=== PATIENT | male | born 1955 | race Caucasian/White ===

== ENCOUNTER → 2016-07-08 | Outpatient (CLI) | payer BC ==
--- NOTE | 2016-07-08 16:00 | CT ---
EXAMINATION TYPE: CT brain w con DATE OF EXAM: 07/08/2016 3:52 PM COMPARISON: NONE HISTORY: Headaches without trauma CT DLP: 1121 mGycm Automated exposure control for dose reduction was used. CONTRAST: CT scan of the head is performed with IV Contrast, patient injected with 100 mL of Omnipaque 300. FINDINGS: There is an area of low-attenuation in the right frontal lobe adjacent to the frontal horn of the right lateral ventricle. This shows no abnormal enhancement and may relate to previous infarct . Central structures are midline. There is no evidence of hydrocephalus. There is no mass effect or mid line shift. I do not see evidence of intracranial blood. Following intravenous administration of contrast but do not see evidence of abnormal enhancement. Visualized portions of the paranasal sinuses and mastoids are clear. No depressed skull fracture is s een. IMPRESSION: 1. NONENHANCING AREA OF LOW ATTENUATION IN THE RIGHT FRONTAL LOBE CONSISTENT WITH OLD VASCULAR INJURY . 2. NO AREAS OF ABNORMAL ENHANCEMENT.
== END | disposition home or self-care (01) ==
LOC: RADCTMAIN 15:19
PROVIDERS: ATTEND Family Medicine
DX: R93.0 Abnormal findings on diagnostic imaging of skull and head, not elsewhere classified (principal); R51 Headache
CPT/HCPCS: 70460; Q9967

== ENCOUNTER → 2016-10-24 | Outpatient (CLI) | payer BC ==
[2016-10-24 17:32] LABS: CH 31.9; CHCM 34.3; HCT 44.6 % (39.0-53.0); HDW 3.08; HGB 14.7 gm/dL (13.0-17.5); MCH 30.8 pg (25.0-35.0); MCHC 32.9 g/dL (31.0-37.0); MCV 93.7 fL (80.0-100.0); Mean Platelet Volume 8.1; RBC 4.76 m/uL (4.30-5.90); RDW 15.1 % (11.5-15.5); WBC 6.3 k/uL (3.8-10.6)
[2016-10-24 17:45] LABS: Anion Gap 9 mmol/L; Blood Urea Nitrogen 15 mg/dL (9-20); Carbon Dioxide 28 mmol/L (22-30); Chloride 104 mmol/L (98-107); Non-African American GFR(MDRD) >60 (>60 ml/min/1.73 sqM); Sodium 141 mmol/L (137-145)
== END | disposition home or self-care (01) ==
LOC: LABPAT 17:03
PROVIDERS: ATTEND Internal Medicine Interventional Cardiology
DX: Z01.812 Encounter for preprocedural laboratory examination (principal); I25.10 Atherosclerotic heart disease of native coronary artery without angina pectoris
CPT/HCPCS: 80051; 82565; 84520; 85027

== ENCOUNTER → 2016-11-25 | Outpatient (CLI) | payer BC ==
--- NOTE | 2016-11-25 07:30 | MR ---
EXAMINATION TYPE: MR brain wo/w con, MR angio head wo con DATE OF EXAM: 11/25/2016 COMPARISON: CT brain dated 07/08/2016 HISTORY: TIA TECHNIQUE: Multiplanar, multisequence images of the brain and brainstem is performed without and with IV contras t, utilizing 7 mL intravenous Gadavist . MRA head was also performed and time of flight images focusi ng on the [place] were performed without contrast. FINDINGS: MR BRAIN: Diffusion weighted images demonstrate no evidence of a recent infarct or other diffusion ab normality. There is no extra-axial fluid collection. T2 hyperintense area within the right frontal lobe and insular cortex does not restricted diffusion and relates to encephalomalacia from prior infa rct in the distribution of the right middle cerebral artery. Numerous other foci of T2 hyperintensity are scattered throughout the subcortical and periventricular white matter bilaterally. The prior are a of encephalomalacia nor the T2 plaques enhance. No enhancing mass or any abnormal enhancement is se en within the brain. Note is made of high riding right jugular bulb. Lack of flow-void is seen within the right internal carotid artery as it enters the calvarium extending through the petrous portion a nd cavernous portion into the inferior aspect of the supraclinoid portion. The ventricular system and cisternal spaces are normal in size and appearance. The brain volume is age appropriate. Midline structures demonstrate normal morphology. The craniocervical junction appears within normal limits. The dural venous sinuses appear patent. The globes are intact. Minimal mucosal thickening is seen within the ethmoid and maxillary sinuses. Remaining paranasal sinuses and mastoid air cells are well aerated. ANGIO HEAD: There is complete occlusion of the right internal carotid artery as it enters the calvari um, within the petrous portion, cavernous portion, and some of the supraclinoid portion. There is rec onstitution at the cranial aspect of the supraclinoid right internal carotid artery with asymmetric o pacification of the right ophthalmic artery in relation to the left, although there is flow demonstra zoila. Reconstitution of the right hemisphere branch vessels of the MCA and JAG is seen by a complete c ircle of [place]. No evidence of aneurysm is seen. A false lumen is not identified as there is near to gaudencio lack of flow void on the MR brain. The vertebral arteries are codominant. 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 No evidence of restricted diffusion to suggest acute infarct. Consider ation should be given to embolic disease given the numerous bilateral plaques although these could al so represent chronic microangiopathy. No discrete intimal flap is seen within the right carotid arter y to indicate dissection. Right hemispheric supratentorial and infratentorial flow is maintained by a complete [place]. A [place] message has been communicated to Walter Davila MD via the [employer] Critical Result system on 11/25/2016 7:28 AM, Message ID [id number].
== END | disposition home or self-care (01) ==
LOC: RADMRIMAIN 05:38
PROVIDERS: ATTEND Family Medicine
DX: I65.21 Occlusion and stenosis of right carotid artery (principal); R90.82 White matter disease, unspecified; G93.89 Other specified disorders of brain
CPT/HCPCS: 70544; 70553; A9581

== ENCOUNTER → 2017-03-14 | Outpatient (CLI) | payer BC ==
--- NOTE | 2017-03-14 17:54 | XR ---
EXAMINATION TYPE: XR humerus RT DATE OF EXAM: 03/14/2017 COMPARISON: NONE HISTORY: Pain and swelling TECHNIQUE: 2 views FINDINGS: I see no fracture nor dislocation. The shoulder joint and elbow joint appear intact. IMPRESSION: Negative right humerus exam.
== END | disposition home or self-care (01) ==
LOC: RADXRMAIN 17:10
PROVIDERS: ATTEND Physician Assistant
DX: S46.901A Unspecified injury of unspecified muscle, fascia and tendon at shoulder and upper arm level, right arm, initial encounter (principal)

== ENCOUNTER 2017-04-26 14:56 | Observation (INO) | payer BC ==
[2017-04-26] MEDS ORDERED: NITROGLYCERIN SL TABS 0.4 MG TAB SUBLINGUAL STA ×3 (15:16)
[2017-04-26] MEDS ORDERED: ASPIRIN 81 MG PO STA (15:16)
--- NOTE | 2017-04-26 15:21 | ED ---
General Adult HPI - General Chief complaint: Chest Pain Stated complaint: Chest pain Time Seen by Provider: 04/26/17 15:06 Source: patient, RN notes reviewed Mode of arrival: wheelchair Limitations: no limitations - History of Present Illness Initial comments: Patient is a pleasant 62-year-old male presenting to the emergency Department with chest discomfort. Symptoms have been waxing and waning the past several days. Discomfort is currently moderate and rated 5/10. Discomfort feels like an ache. Patient does have exertional dyspnea. No nausea or diaphoresis. Patient has had similar symptoms previously, last heart catheterization was approximately 6 months ago without intervention. - Related Data Home Medications Medication Instructions Recorded Confirmed Aspirin 325 mg PO DAILY 04/26/17 04/26/17 Atenolol 100 mg PO DAILY 04/26/17 04/26/17 Atorvastatin [Lipitor] 10 mg PO HS 04/26/17 04/26/17 Cholecalciferol (Vitamin D3) 2,000 unit PO DAILY 04/26/17 04/26/17 [Vitamin D3] Citalopram Hydrobromide 40 mg PO DAILY 04/26/17 04/26/17 [Citalopram HBr] Clopidogrel [Plavix] 75 mg PO HS 04/26/17 04/26/17 Icosapent Ethyl [Vascepa] 0.5 gm PO DAILY 04/26/17 04/26/17 Lisinopril [Zestril] 20 mg PO BID 04/26/17 04/26/17 Omeprazole 40 mg PO DAILY 04/26/17 04/26/17 Allergies Allergy/AdvReac Type Severity Reaction Status Date / Time No Known Allergies Allergy Verified 04/26/17 15:36 Review of Systems ROS Statement: Those systems with pertinent positive or pertinent negative responses have been documented in the HPI. ROS Other: All systems not noted in ROS Statement are negative. Constitutional: Denies: fever Eyes: Denies: eye pain ENT: Denies: ear pain Respiratory: Reports: dyspnea. Denies: cough Cardiovascular: Reports: chest pain Endocrine: Denies: fatigue Gastrointestinal: Denies: abdominal pain Genitourinary: Denies: dysuria Musculoskeletal: Denies: back pain Skin: Denies: rash Neurological: Denies: weakness Past Medical History Past Medical History: CVA/TIA History of Any Multi-Drug Resistant Organisms: None Reported Past Surgical History: Cholecystectomy Past Psychological History: No Psychological Hx Reported Smoking Status: Former smoker Past Alcohol Use History: None Reported Past Drug Use History: None Reported General Exam Limitations: no limitations General appearance: alert, in no apparent distress Head exam: Present: atraumatic Eye exam: Present: normal appearance, PERRL ENT exam: Present: normal oropharynx Neck exam: Present: normal inspection Respiratory exam: Present: normal lung sounds bilaterally Cardiovascular Exam: Present: regular rate, normal rhythm Expanded Peripheral pulses: 2+: Radial (R), Radial (L), Posterior Tibialis (R), Posterior Tibialis (L) GI/Abdominal exam: Present: soft. Absent: tenderness Extremities exam: Present: normal inspection. Absent: pedal edema, calf tenderness Neurological exam: Present: alert Psychiatric exam: Present: normal affect, normal mood Skin exam: Present: normal color Course Vital Signs 04/26/17 04/26/17 04/26/17 14:59 15:28 15:33 Temperature 98.1 F Pulse Rate 75 69 52 L Respiratory 20 16 Rate Blood Pressure 126/72 129/74 109/59 O2 Sat by Pulse 99 98 Oximetry 04/26/17 04/26/17 15:40 16:05 Temperature Pulse Rate 69 64 Respiratory 16 Rate Blood Pressure 118/60 113/67 O2 Sat by Pulse 95 Oximetry EKG Findings - EKG Comments: EKG Findings:: Normal sinus rhythm 66. CT 166. QRS 112. QT 432. QTC 452. Normal axis. Right bundle branch block. No acute ST change. Medical Decision Making - Medical Decision Making Patient reevaluated and resting comfortably in bed. Patient updated on results and plan. Case was discussed with practitioner Maryanne, who will admit for Dr. Davila. - Lab Data Result diagrams: 04/26/17 15:22 04/26/17 15:22 Lab Results 04/26/17 04/26/17 04/26/17 Range/Units 15:22 15:22 15:22 WBC 4.9 (3.8-10.6) k/uL RBC 4.26 L (4.30-5.90) m/uL Hgb 12.9 L (13.0-17.5) gm/dL Hct 37.4 L (39.0-53.0) % MCV 87.9 (80.0-100.0) fL MCH 30.4 (25.0-35.0) pg MCHC 34.5 (31.0-37.0) g/dL RDW 13.6 (11.5-15.5) % Plt Count 159 (150-450) k/uL Neutrophils % 50 % Lymphocytes % 33 % Monocytes % 8 % Eosinophils % 6 % Basophils % 1 % Neutrophils # 2.5 (1.3-7.7) k/uL Lymphocytes # 1.6 (1.0-4.8) k/uL Monocytes # 0.4 (0-1.0) k/uL Eosinophils # 0.3 (0-0.7) k/uL Basophils # 0.0 (0-0.2) k/uL PT (9.0-12.0) sec INR (<1.2) APTT (22.0-30.0) sec Sodium 143 (137-145) mmol/L Potassium 4.3 (3.5-5.1) mmol/L Chloride 107 (98-107) mmol/L Carbon Dioxide 25 (22-30) mmol/L Anion Gap 11 mmol/L BUN 15 (9-20) mg/dL Creatinine 0.90 (0.66-1.25) mg/dL Est GFR (MDRD) Af Amer >60 (>60 ml/min/1.73 sqM) Est GFR (MDRD) Non-Af >60 (>60 ml/min/1.73 sqM) Glucose 117 H (74-99) mg/dL Calcium 9.2 (8.4-10.2) mg/dL Magnesium 1.9 (1.6-2.3) mg/dL Total Bilirubin 0.8 (0.2-1.3) mg/dL AST 27 (17-59) U/L ALT 39 (21-72) U/L Alkaline Phosphatase 65 (38-126) U/L Total Creatine Kinase 207 H (55-170) U/L CK-MB (CK-2) 1.0 (0.0-2.4) ng/mL CK-MB (CK-2) Rel Index 0.5 Troponin I <0.012 (0.000-0.034) ng/mL Total Protein 7.0 (6.3-8.2) g/dL Albumin 4.4 (3.5-5.0) g/dL 04/26/17 Range/Units 15:22 WBC (3.8-10.6) k/uL RBC (4.30-5.90) m/uL Hgb (13.0-17.5) gm/dL Hct (39.0-53.0) % MCV (80.0-100.0) fL MCH (25.0-35.0) pg MCHC (31.0-37.0) g/dL RDW (11.5-15.5) % Plt Count (150-450) k/uL Neutrophils % % Lymphocytes % % Monocytes % % Eosinophils % % Basophils % % Neutrophils # (1.3-7.7) k/uL Lymphocytes # (1.0-4.8) k/uL Monocytes # (0-1.0) k/uL Eosinophils # (0-0.7) k/uL Basophils # (0-0.2) k/uL PT 10.1 (9.0-12.0) sec INR 1.0 (<1.2) APTT 25.3 (22.0-30.0) sec Sodium (137-145) mmol/L Potassium (3.5-5.1) mmol/L Chloride (98-107) mmol/L Carbon Dioxide (22-30) mmol/L Anion Gap mmol/L BUN (9-20) mg/dL Creatinine (0.66-1.25) mg/dL Est GFR (MDRD) Af Amer (>60 ml/min/1.73 sqM) Est GFR (MDRD) Non-Af (>60 ml/min/1.73 sqM) Glucose (74-99) mg/dL Calcium (8.4-10.2) mg/dL Magnesium (1.6-2.3) mg/dL Total Bilirubin (0.2-1.3) mg/dL AST (17-59) U/L ALT (21-72) U/L Alkaline Phosphatase (38-126) U/L Total Creatine Kinase (55-170) U/L CK-MB (CK-2) (0.0-2.4) ng/mL CK-MB (CK-2) Rel Index Troponin I (0.000-0.034) ng/mL Total Protein (6.3-8.2) g/dL Albumin (3.5-5.0) g/dL - Radiology Data Radiology results: image reviewed (Chest x-ray shows no acute process.) Disposition Clinical Impression: Chest pain Disposition: ADMITTED IP TO THIS [facility] Referrals: Walter Davila MD [Primary Care Provider] - 1-2 days Decision Time: 16:23
[2017-04-26 15:40] LABS: Basophils % (A) 1 %; Eosinophils # (A) 0.3 k/uL (0-0.7); Eosinophils % (A) 6 %; HCT 37.4 % (39.0-53.0); HGB 12.9 gm/dL (13.0-17.5); Lymphocytes # (A) 1.6 k/uL (1.0-4.8); Lymphocytes % (A) 33 %; MCH 30.4 pg (25.0-35.0); MCHC 34.5 g/dL (31.0-37.0); MCV 87.9 fL (80.0-100.0); Mean Platelet Volume 8.3; Monocytes # (A) 0.4 k/uL (0-1.0); Monocytes % (A) 8 %; Neutrophils # (A) 2.5 k/uL (1.3-7.7); Neutrophils % (A) 50 %; Platelet Count 159 k/uL (150-450); RBC 4.26 m/uL (4.30-5.90); RDW 13.6 % (11.5-15.5); WBC 4.9 k/uL (3.8-10.6)
--- NOTE | 2017-04-26 15:53 | XR ---
EXAMINATION TYPE: XR chest 2V DATE OF EXAM: 04/26/2017 COMPARISON: NONE HISTORY: Shortness of breath TECHNIQUE: Frontal and lateral views of the chest are obtained. FINDINGS: Scattered senescent parenchymal changes noted. Hyperinflation compatible with COPD. No evidence for infiltrate. No evidence for atelectasis. Heart size is stable. Mediastinal structures are stable and grossly unremarkable. No evidence for hilar prominence. Degenerative changes dorsal spine. IMPRESSION: 1. No evidence for acute pulmonary disease.
[2017-04-26 15:58] LABS: ALT 39 U/L (21-72); AST 27 U/L (17-59); Albumin 4.4 g/dL (3.5-5.0); Alkaline Phosphatase 65 U/L (38-126); Anion Gap 11 mmol/L; Blood Urea Nitrogen 15 mg/dL (9-20); Calcium 9.2 mg/dL (8.4-10.2); Carbon Dioxide 25 mmol/L (22-30); Chloride 107 mmol/L (98-107); Glucose 117 mg/dL (74-99); Partial Thromboplastin Time 25.3 sec (22.0-30.0); Potassium 4.3 mmol/L (3.5-5.1); Prothrombin Time 10.1 sec (9.0-12.0); Sodium 143 mmol/L (137-145); Total Bilirubin 0.8 mg/dL (0.2-1.3)
[2017-04-26 16:03] LABS: Creatine Kinase 207 U/L (55-170)
[2017-04-26 16:15] LABS: Troponin I <0.012 ng/mL (0.000-0.034)
[2017-04-26] MEDS ORDERED: NITROGLYCERIN SL TABS 0.4 MG TAB SUBLINGUAL PRN (16:23)
[2017-04-26] MEDS: NITROGLYCERIN OINT 1 INCH/GM PACKET TOPICAL SCH ×2 (18:20→23:28)
[2017-04-26] MEDS: LISINOPRIL 20 MG TAB PO SCH (20:35)
[2017-04-26] MEDS ORDERED: CLOPIDOGREL 75 MG TAB PO SCH (21:00)
[2017-04-26] MEDS ORDERED: ATORVASTATIN 10 MG TAB PO SCH (21:00)
[2017-04-26 21:55] LABS: Creatine Kinase 173 U/L (55-170)
[2017-04-26 22:09] LABS: Creatine Kinase MB 0.8 ng/mL (0.0-2.4); Troponin I <0.012 ng/mL (0.000-0.034)
[2017-04-27 04:08] LABS: Cholesterol 75 mg/dL (<200); HDL Cholesterol 28 mg/dL (40-60); Triglycerides 283 mg/dL (<150)
[2017-04-27 04:23] LABS: Creatine Kinase 164 U/L (55-170)
[2017-04-27 04:34] LABS: Creatine Kinase MB 0.7 ng/mL (0.0-2.4); Troponin I <0.012 ng/mL (0.000-0.034)
[2017-04-27] MEDS: NITROGLYCERIN OINT 1 INCH/GM PACKET TOPICAL SCH ×2 (06:28→15:31)
[2017-04-27] MEDS ORDERED: PANTOPRAZOLE 40 MG TABLET PO SCH (07:30)
[2017-04-27 08:21] VITALS: RESP 18
[2017-04-27] MEDS ORDERED: ATENOLOL 50 MG TAB PO SCH (09:00)
[2017-04-27] MEDS ORDERED: ICOSAPENT ETHYL 0.5 GM PO SCH (09:00)
[2017-04-27] MEDS ORDERED: ASPIRIN 325 MG TAB PO SCH (09:00)
[2017-04-27] MEDS ORDERED: CITALOPRAM HYDROBROMIDE 20 MG TAB PO SCH (09:00)
[2017-04-27] MEDS ORDERED: KETOROLAC 30 MG/ML 1 ML VIAL IVP STA (11:02)
--- NOTE | 2017-04-27 11:06 | P.HPIM ---
History of Present Illness 62-year-old male presented to his family physician yesterday with complaints of intermittent chest pain chest pressure radiating to left arm patient was evaluated in emergency room and admitted to observation for cardiology workup. 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 History of Any Multi-Drug Resistant Organisms: None Reported Past Surgical History: Back Surgery, Cholecystectomy, Heart Catheterization, Hernia Repair Additional Past Surgical History / Comment(s): nancy inguinal hernia repair, throat polpys removed Past Anesthesia/Blood Transfusion Reactions: Previous Problems w/ Anesthesia, Motion Sickness Additional Past Anesthesia/Blood Transfusion Reaction / Comment(s): slow to wake up after aa Smoking Status: Former smoker - Past Family History Mother Family Medical History: CVA/TIA Father Family Medical History: CVA/TIA, Myocardial Infarction (PR) Medications and Allergies Home Medications Medication Instructions Recorded Confirmed Type Aspirin 325 mg PO DAILY 04/26/17 04/26/17 History Atenolol 100 mg PO DAILY 04/26/17 04/26/17 History Atorvastatin [Lipitor] 10 mg PO HS 04/26/17 04/26/17 History Cholecalciferol (Vitamin D3) 2,000 unit PO DAILY 04/26/17 04/26/17 History [Vitamin D3] Citalopram Hydrobromide 40 mg PO DAILY 04/26/17 04/26/17 History [Citalopram HBr] Clopidogrel [Plavix] 75 mg PO HS 04/26/17 04/26/17 History Icosapent Ethyl [Vascepa] 0.5 gm PO DAILY 04/26/17 04/26/17 History Lisinopril [Zestril] 20 mg PO BID 04/26/17 04/26/17 History Omeprazole 40 mg PO DAILY 04/26/17 04/26/17 History Allergies Allergy/AdvReac Type Severity Reaction Status Date / Time No Known Allergies Allergy Verified 04/26/17 15:36 Physical Exam Vitals: Vital Signs Temp Pulse Pulse Resp BP BP BP 04/27/17 08:00 98.2 F 75 18 136/74 04/27/17 04:00 97.9 F 65 16 122/71 04/27/17 03:55 16 04/27/17 00:00 16 04/26/17 23:52 98.1 F 65 16 126/77 04/26/17 20:00 16 04/26/17 19:39 97.7 F 70 16 162/88 04/26/17 17:35 98.1 F 60 17 132/77 04/26/17 17:06 97.8 F 65 16 111/60 04/26/17 16:05 64 113/67 04/26/17 15:40 69 16 118/60 04/26/17 15:33 52 L 109/59 04/26/17 15:28 69 16 129/74 04/26/17 14:59 98.1 F 75 20 126/72 Pulse Ox 04/27/17 08:00 95 04/27/17 04:00 96 04/27/17 03:55 04/27/17 00:00 04/26/17 23:52 96 04/26/17 20:00 04/26/17 19:39 97 04/26/17 17:35 97 04/26/17 17:06 95 04/26/17 16:05 04/26/17 15:40 95 04/26/17 15:33 04/26/17 15:28 98 04/26/17 14:59 99 Intake and Output 04/26/17 04/27/17 04/27/17 22:59 06:59 14:59 Other: Voiding Method Toilet Toilet Toilet # Voids 1 Weight 76.7 kg - Constitutional General appearance: mild distress - EENT Eyes: PERRLA Ears: bilateral: normal - Neck Neck: normal ROM - Respiratory Respiratory: bilateral: CTA - Cardiovascular Rhythm: regular - Gastrointestinal General gastrointestinal: soft - Integumentary Integumentary: normal - Neurologic Neurologic: CNII-XII intact - Psychiatric Psychiatric: A&O x's 3, appropriate affect, intact judgment & insight Results CBC & Chem 7: 04/26/17 15:22 04/26/17 15:22 Labs: Abnormal Lab Results - Last 24 Hours (Table) 0204/26/17 04/26/17 Range/Units 15:22 15:22 15:22 RBC 4.26 L (4.30-5.90) m/uL Hgb 12.9 L (13.0-17.5) gm/dL Hct 37.4 L (39.0-53.0) % Glucose 117 H (74-99) mg/dL Total Creatine Kinase 207 H (55-170) U/L Triglycerides (<150) mg/dL HDL Cholesterol (40-60) mg/dL 04/26/17 04/27/17 Range/Units 20:59 03:40 RBC (4.30-5.90) m/uL Hgb (13.0-17.5) gm/dL Hct (39.0-53.0) % Glucose (74-99) mg/dL Total Creatine Kinase 173 H (55-170) U/L Triglycerides 283 H (<150) mg/dL HDL Cholesterol 28 L (40-60) mg/dL Chest x-ray: report reviewed Thrombosis Risk Factor Assmnt - Choose All That Apply Any of the Below Risk Factors Present?: Yes Each Factor Represents 1 point: Obesity (BMI >25) Other Risk Factors: Yes Each Risk Factor Represents 2 Points: Age 61-74 years Other congenital or acquired thrombophilia - If yes, enter type in comment: No Thrombosis Risk Factor Assessment Total Risk Factor Score: 3 Thrombosis Risk Factor Assessment Level: Moderate Risk Assessment and Plan Plan: Assessment Chest pain troponins negative 3 History of CVA/TIA Hyperlipidemia Hypertension Plan Continue consultation with cardiology Possible stress test tomorrow
[2017-04-27] MEDS ORDERED: IBUPROFEN 600 MG TAB PO SCH (11:15)
[2017-04-27] MEDS: LISINOPRIL 20 MG TAB PO SCH (11:47)
[2017-04-27] MEDS ORDERED: CHOLECALCIFEROL 1,000 UNIT TAB PO SCH (12:00)
--- NOTE | 2017-04-27 13:04 | P.CRDCN ---
History of Present Illness Consult date: 04/27/17 Consult reason: chest pain History of present illness: Mr. Cullen is a pleasant 62-year-old male past medical history significant for dyslipidemia, hypertension, CVA, carotid artery disease and mild aortic regurgitation/stenosis. He follows with Dr. Booth in the office. We have been asked to see him in consultation for complaints of chest pain and exertional shortness of breath. He states since Monday of last week he has had episodes of chest pain intermittently not associated with exertion. The symptoms seem to wax and wan with no specific aggravating or alleviating factors. He was tolerating this until yesterday at work he was walking and he felt increasing dizzy and short of breath. Then he went to regularly scheduled physical therapy for a torn bicep muscle and again had symptoms of chest pain. For this reason he decided to present to ED for evaluation. Since arriving he has had no further episodes of chest pain or shortness. Telemetry tracings have been unremarkable. He denies any associated palpitations, nausea, vomiting or diaphoresis. He also denies symptoms of orthopnea or PND. EKG on arrival reveals sinus rhythm with right bundle branch block pattern. No ST or T-wave abnormalities. Chest xray negative for an acute cardiopulmonary process. Laboratory data reviewed, hgb 12.9, plt 159, potassium 4.3, magnesium 1.9, creatinine 0.9, cardiac enzymes negative x3, cholesterol panel inconclusive secondary to elevated triglycerides. Recommend outpatient testing at a later date. Current cardiac medications include lisinopril 20 mg BID, atenolol 100 mg daily , plavix 75 mg daily, atorvastatin 10 mg daily and aspirin 325 mg daily. Most recent cardiac catheterization was performed 10/2016 revealed normal coronary arteries with no gradient across the aortic valve. Most recent echocardiogram performed 08/2016 reveals mild aortic stenosis and aortic regurgitation with preserved LV systolic function with normal ejection fraction. Most recent Lexiscan stress test in 2015 was negative for reversible cardiac ischemia. Most recent carotid duplex 01/2016 reveals mild disease in LICA and occluded right ICA. Review of Systems CONSTITUTIONAL: Denies fever. Denies chills. EYES: Denies blurred vision. Denies vision changes. Denies eye pain. EARS, NOSE, MOUTH & THROAT: Denies headache. Denies sore throat. Denies ear pain. CARDIOVASCULAR: Denies chest pain. Denies shortness of breath. Denies orthopnea. Denies PND. Denies palpitations. RESPIRATORY: Denies cough. GASTROINTESTINAL: Denies abdominal pain. Denies diarrhea. Denies constipation. Denies nausea. Denies vomiting. MUSCULOSKELETAL: Denies myalgias. INTEGUMENTARY: Denies pruitis. Denies rash. NEUROLOGIC: Denies numbness. Denies tingling. Denies weakness. PSYCHIATRIC: Denies anxiety. Denies depression. ENDOCRINE: Denies fatigue. Denies weight change. Denies polydipsia. Denies polyurina. GENITOURINARY: Denies burning, hematuria or urgency with micturation. HEMATOLOGIC: Denies history of anemia. Denies bleeding. Past Medical History Past Medical History: CVA/TIA, Hyperlipidemia, Hypertension Additional Past Medical History / Comment(s): rt side dominant."rt carotid artery 100% blocked", past "stroke" some mild short term memory problems", throat polyps removed pt stated were cancerous History of Any Multi-Drug Resistant Organisms: None Reported Past Surgical History: Back Surgery, Cholecystectomy, Heart Catheterization, Hernia Repair Additional Past Surgical History / Comment(s): nancy inguinal hernia repair, throat polpys removed Past Anesthesia/Blood Transfusion Reactions: Previous Problems w/ Anesthesia, Motion Sickness Additional Past Anesthesia/Blood Transfusion Reaction / Comment(s): slow to wake up after aa Smoking Status: Former smoker - Past Family History Mother Family Medical History: CVA/TIA Father Family Medical History: CVA/TIA, Myocardial Infarction ([place]) Medications and Allergies Home Medications Medication Instructions Recorded Confirmed Type Aspirin 325 mg PO DAILY 04/26/17 04/26/17 History Atenolol 100 mg PO DAILY 04/26/17 04/26/17 History Atorvastatin [Lipitor] 10 mg PO HS 04/26/17 04/26/17 History Cholecalciferol (Vitamin D3) 2,000 unit PO DAILY 04/26/17 04/26/17 History [Vitamin D3] Citalopram Hydrobromide 40 mg PO DAILY 04/26/17 04/26/17 History [Citalopram HBr] Clopidogrel [Plavix] 75 mg PO HS 04/26/17 04/26/17 History Icosapent Ethyl [Vascepa] 0.5 gm PO DAILY 04/26/17 04/26/17 History Lisinopril [Zestril] 20 mg PO BID 04/26/17 04/26/17 History Omeprazole 40 mg PO DAILY 04/26/17 04/26/17 History Allergies Allergy/AdvReac Type Severity Reaction Status Date / Time No Known Allergies Allergy Verified 04/26/17 15:36 Physical Exam Vitals: Vital Signs Temp Pulse Pulse Resp BP BP BP 04/27/17 08:00 98.2 F 75 18 136/74 04/27/17 04:00 97.9 F 65 16 122/71 04/27/17 03:55 16 04/27/17 00:00 16 04/26/17 23:52 98.1 F 65 16 126/77 04/26/17 20:00 16 04/26/17 19:39 97.7 F 70 16 162/88 04/26/17 17:35 98.1 F 60 17 132/77 04/26/17 17:06 97.8 F 65 16 111/60 04/26/17 16:05 64 113/67 04/26/17 15:40 69 16 118/60 04/26/17 15:33 52 L 109/59 04/26/17 15:28 69 16 129/74 04/26/17 14:59 98.1 F 75 20 126/72 Pulse Ox 04/27/17 08:00 95 04/27/17 04:00 96 04/27/17 03:55 04/27/17 00:00 04/26/17 23:52 96 04/26/17 20:00 04/26/17 19:39 97 04/26/17 17:35 97 04/26/17 17:06 95 04/26/17 16:05 04/26/17 15:40 95 04/26/17 15:33 04/26/17 15:28 98 04/26/17 14:59 99 Intake and Output 04/26/17 04/27/17 04/27/17 22:59 06:59 14:59 Other: Voiding Method Toilet Toilet # Voids 1 Weight 76.7 kg Blood pressure 136/74 heart rate 75 afebrile GENERAL: This is a 62-year-old male in no apparent distress at the time of my examination. HEENT: Head is atraumatic, normocephalic. Pupils are equal, round. Sclerae anicteric. Conjunctivae are clear. Mucous membranes of the mouth are moist. Neck is supple. There is no jugular venous distention. No carotid bruit is heard. LUNGS: Clear to auscultation no wheezes, rales or rhonchi. No chest wall tenderness is noted on palpation or with deep breathing. HEART: Regular rate and rhythm with systolic ejection murmur at the base, no rubs or gallops. S1 and S2 heard. ABDOMEN: Soft, nontender. Bowel sounds are heard. No organomegaly noted. EXTREMITIES: No evidence of peripheral edema and no calf tenderness noted. VASCULAR: Radial and dorsalis pedis pulses palpated, no evidence of clubbing. NEUROLOGIC: Patient is awake, alert and oriented x3. Results 04/26/17 15:22 04/26/17 15: Cardiac Enzymes 04/26/17 04/26/17 04/26/17 Range/Units 15:22 15:22 20:59 AST 27 (17-59) U/L CK-MB (CK-2) 1.0 0.8 (0.0-2.4) ng/mL Troponin I <0.012 <0.012 (0.000-0.034) ng/mL 04/27/17 Range/Units 03:40 AST (17-59) U/L CK-MB (CK-2) 0.7 (0.0-2.4) ng/mL Troponin I <0.012 (0.000-0.034) ng/mL Coagulation 04/26/17 Range/Units 15:22 PT 10.1 (9.0-12.0) sec APTT 25.3 (22.0-30.0) sec Lipids 04/27/17 Range/Units 03:40 Triglycerides 283 H (<150) mg/dL Cholesterol 75 (<200) mg/dL HDL Cholesterol 28 L (40-60) mg/dL CBC 04/26/17 Range/Units 15:22 WBC 4.9 (3.8-10.6) k/uL RBC 4.26 L (4.30-5.90) m/uL Hgb 12.9 L (13.0-17.5) gm/dL Hct 37.4 L (39.0-53.0) % Plt Count 159 (150-450) k/uL Comprehensive Metabolic Panel 04/26/17 Range/Units 15:22 Sodium 143 (137-145) mmol/L Potassium 4.3 (3.5-5.1) mmol/L Chloride 107 (98-107) mmol/L Carbon Dioxide 25 (22-30) mmol/L BUN 15 (9-20) mg/dL Creatinine 0.90 (0.66-1.25) mg/dL Glucose 117 H (74-99) mg/dL Calcium 9.2 (8.4-10.2) mg/dL AST 27 (17-59) U/L ALT 39 (21-72) U/L Alkaline Phosphatase 65 (38-126) U/L Total Protein 7.0 (6.3-8.2) g/dL Albumin 4.4 (3.5-5.0) g/dL Current Medications Generic Name Dose Route Start Last Admin Trade Name Freq PRN Reason Stop Dose Admin Aspirin 325 mg 04/27/17 09:00 Aspirin PO DAILY [facility] Atenolol 100 mg 04/27/17 09:00 Tenormin PO DAILY [facility] Atorvastatin Calcium 10 mg 04/26/17 21:00 04/26/17 20:35 Lipitor PO 10 mg HS [facility] Administration Cholecalciferol 2,000 unit 04/27/17 12:00 Vitamin D3 PO 1200 [facility] Citalopram Hydrobromide 40 mg 04/27/17 09:00 Celexa PO DAILY [facility] Clopidogrel Bisulfate 75 mg 04/26/17 21:00 04/26/17 20:35 Plavix PO 75 mg HS [facility] Administration Lisinopril 20 mg 04/26/17 21:00 04/26/17 20:35 Zestril PO 20 mg BID JUNAID Administration Nitroglycerin 1 inch 04/26/17 18:00 04/27/17 06:28 Nitro-Bid Oint TOPICAL 1 inch Q6HR [facility] Administration Nitroglycerin 0.4 mg 04/26/17 16:23 Nitrostat SUBLINGUAL Q5M PRN Chest Pain Patient's Own Med ( 0.5 gm 04/27/17 09:00 Icosapent Ethyl [ PO Vascepa] 0.5 Gm) DAILY [facility] Pantoprazole Sodium 40 mg 04/27/17 07:30 Protonix PO AC-BRKFST JUNAID Intake and Output 02/28/18 03/01/18 03/01/18 22:59 06:59 14:59 Other: Voiding Method Toilet Toilet # Voids 1 Weight 76.7 kg 04/26/17 15:22 04/26/17 15:22 Assessment and Plan Assessment: ASSESSMENT 1. Chest pain, atypical with recent normal cardiac catheterization 10/2016. Pain is more pleuritic in nature, possibly secondary to increasing exercise with physical therapy. 2. Hypertension 3. Dyslipidemia 4. Carotid artery disease with totally occluded right ICA 5. History of CVA 6. Non-rheumatic aortic stenosis PLAN Obtain 2D echocardiogram and doppler study to assess cardiac structure and function. Give toradol now assess for pain relief. An acute coronary event has been ruled out. Stable from cardiac perspective. Follow up with Dr. Booth in 2-3 weeks. Thank you kindly for this consultation. Nurse Practitioner note has been reviewed, I agree with a documented findings and plan of care. Patient was seen and examined.
--- NOTE | 2017-04-27 15:54 | P.DS ---
Providers Date of admission: 04/26/17 16:24 Expected date of discharge: 04/27/17 Attending physician: Walter Davila Consults: 04/26/17 16:24 Consult Physician Urgent Consulting Provider: Bernardo Booth Consult Reason/Comments: cp Do you want consulting provider notified?: Yes Primary care physician: Walter Davila [facility] Course: 62-year-old male presented to the emergency room after a visit with family physician for chest pain. Patient was availed evaluated by cardiology cleared for discharge. Troponins were negative times three. Cardiology feels chest pain was chest wall pain from increasing exercise. Patient is to follow up with family physician and Dr. Booth to three weeks. Assessment chest pain atypical chest wall troponins negative history of CVA/TIA hyperlipidemia hypertension carotid artery disease Nondramatic aortic stenosis Plan follow up with the family physician in [facility] discharge home Patient Condition at Discharge: Serious Plan - Discharge Summary Discharge Rx Participant: No New Discharge Prescriptions: Continue Citalopram Hydrobromide [Citalopram HBr] 40 mg PO DAILY Cholecalciferol (Vitamin D3) [Vitamin D3] 2,000 unit PO DAILY Lisinopril [Zestril] 20 mg PO BID Atenolol 100 mg PO DAILY Omeprazole 40 mg PO DAILY Clopidogrel [Plavix] 75 mg PO HS Atorvastatin [Lipitor] 10 mg PO HS Aspirin 325 mg PO DAILY Icosapent Ethyl [Vascepa] 0.5 gm PO DAILY Discharge Medication List Aspirin 325 mg PO DAILY 04/26/17 [History] Atenolol 100 mg PO DAILY 04/26/17 [History] Atorvastatin [Lipitor] 10 mg PO HS 04/26/17 [History] Cholecalciferol (Vitamin D3) [Vitamin D3] 2,000 unit PO DAILY 04/26/17 [History] Citalopram Hydrobromide [Citalopram HBr] 40 mg PO DAILY 04/26/17 [History] Clopidogrel [Plavix] 75 mg PO HS 04/26/17 [History] Icosapent Ethyl [Vascepa] 0.5 gm PO DAILY 04/26/17 [History] Lisinopril [Zestril] 20 mg PO BID 04/26/17 [History] Omeprazole 40 mg PO DAILY 04/26/17 [History] Follow up Appointment(s)/Referral(s): Walter Davila MD [Primary Care Provider] - 1-2 days Bernardo Booth MD [STAFF PHYSICIAN] - 1 Week (Follow up appoimntment is on May 19 at 1:[address] Booth )
[2017-04-27 16:15] VITALS: BP 116/70; PULSE 66; TEMP 97.2
--- NOTE | 2017-04-28 11:09 | ECHOF ---
Referral Reason:chest pain/sob MEASUREMENTS -------- HEIGHT: 157.5 cm WEIGHT: 76.7 kg BP: IVSd: 1.2 cm (0.6 - 1.1) LVIDd: 4.1 cm (3.9 - 5.3) LVPWd: 1.0 cm (0.6 - 1.1) IVSs: 1.8 cm LVIDs: 2.1 cm LVPWs: 1.9 cm LAESV Index (A-L): 17.21 ml/m Ao Diam: 3.2 cm (2.0 - 3.7) AV Cusp: 1.5 cm (1.5 - 2.6) LA Diam: 3.4 cm (2.7 - 3.8) MV EXCURSION: 14.924 mm (> 18.000) MV EF SLOPE: 84 mm/s (70 - 150) EPSS: 0.5 cm MV E Shyam: 0.66 m/s MV DecT: 239 ms MV A Shyam: 0.94 m/s MV E/A Ratio: 0.71 AV maxP.38 mmHg AV meanP.68 mmHg AR PHT: 505 ms RAP: 5.00 mmHg RVSP: 21.08 mmHg FINDINGS -------- Sinus rhythm. This was a technically good study. The left ventricular size is normal. There is borderline concentric left ventricular hypertrophy. Overall left ventricular systolic function is normal with, an EF between 55 - 60 %. The right ventricle is normal in size and function. Normal LA size by volume 22+/-6 ml/m2. The right atrium is normal in size. Aortic valve is trileaflet and is moderately thickened. There is mild aortic regurgitation. There is mild aortic stenosis present. Peak/mean gradient across the Aortic Valve is 28.38mmHg / 12.68mm Hg. The mitral valve leaflets are mildly thickened. Mild mitral annular calcification present. Mild m itral regurgitation is present. Mild tricuspid regurgitation present. The right ventricular systolic pressure, as measured by Doppl er, is 21.08mmHg. Pulmonic valve appears structurally normal. The aortic root size is normal. Normal inferior vena cava with normal inspiratory collapse consistent with estimated right atrial pre ssure of 5 mmHg. The pericardium is normal. CONCLUSIONS -------- 1. Sinus rhythm. 2. This was a technically good study. 3. The left ventricular size is normal. 4. There is borderline concentric left ventricular hypertrophy. 5. Overall left ventricular systolic function is normal with, an EF between 55 - 60 %. 6. The right ventricle is normal in size and function. 7. Normal LA size by volume 22+/-6 ml/m2. 8. The right atrium is normal in size. 9. Aortic valve is trileaflet and is moderately thickened. 10. There is mild aortic regurgitation. 11. There is mild aortic stenosis present. 12. Peak/mean gradient across the Aortic Valve is 28.38mmHg / 12.68mmHg. 13. The mitral valve leaflets are mildly thickened. 14. Mild mitral annular calcification present. 15. Mild mitral regurgitation is present. 16. Mild tricuspid regurgitation present. 17. The right ventricular systolic pressure, as measured by Doppler, is 21.08mmHg. 18. Pulmonic valve appears structurally normal. 19. The aortic root size is normal. 20. Normal inferior vena cava with normal inspiratory collapse consistent with estimated right atrial pressure of 5 mmHg. 21. The pericardium is normal. MEDICAL TECHNOLOGIST PRN: Albina Franklin RDCS
== END 2017-04-27 16:20 | disposition home or self-care (01) ==
LOC: EC 14:56 → 3OBS 16:24
PROVIDERS: ADMIT Family Medicine; ATTEND Family Medicine
DX: R07.89 Other chest pain (principal); R42 Dizziness and giddiness; R06.02 Shortness of breath; R06.00 Dyspnea, unspecified; Z86.73 Personal history of transient ischemic attack (TIA), and cerebral infarction without residual deficits; E78.5 Hyperlipidemia, unspecified; I10 Essential (primary) hypertension; I65.21 Occlusion and stenosis of right carotid artery; I35.2 Nonrheumatic aortic (valve) stenosis with insufficiency; I35.1 Nonrheumatic aortic (valve) insufficiency; E66.9 Obesity, unspecified; Z68.30 Body mass index [BMI] 30.0-30.9, adult; Z79.02 Long term (current) use of antithrombotics/antiplatelets; Z79.82 Long term (current) use of aspirin; Z79.899 Other long term (current) drug therapy; Z87.891 Personal history of nicotine dependence; Z90.49 Acquired absence of other specified parts of digestive tract; Z82.49 Family history of ischemic heart disease and other diseases of the circulatory system; E78.1 Pure hyperglyceridemia
CPT/HCPCS: 99285; 96374; 36415; 93005; 93306; 80061; 80053; 82550 ×2; 82553 ×2; 83735; 84484 ×2; 85025; 85610; 85730; 71046; G0378 ×2; J1885

== ENCOUNTER → 2017-08-02 | Outpatient (CLI) | payer BC | END | disposition home or self-care (01) | LOC: LABWHC1 15:49 | PROVIDERS: ATTEND Psychiatry & Neurology Neurology | DX: G44.89 Other headache syndrome (principal) | CPT/HCPCS: 36415; 82306; 85652; 86140 ==

== ENCOUNTER 2018-06-08 07:59 | Day surgery (SDC) | payer BC ==
[2018-06-05 16:05] VITALS: BMI 32.9
--- NOTE | 2018-06-08 06:12 | P.GSHP ---
History of Present Illness H&P Date: 06/08/18 CHIEF COMPLAINT: Colon screen HISTORY OF PRESENT ILLNESS: The patient is a 63-year-old male who presents for colon screen. Lower endoscopy was offered for further evaluation and management. PAST MEDICAL HISTORY: Please see list. PAST SURGICAL HISTORY: Please see list. MEDICATIONS: Please see list. ALLERGIES: Please see list. SOCIAL HISTORY: No illicit drug use FAMILY HISTORY: No reports of Crohn disease or ulcerative colitis. REVIEW OF ORGAN SYSTEMS: CONSTITUTIONAL: No reports of fevers or chills. PHYSICAL EXAM: VITAL SIGNS: Stable GENERAL: Well-developed pleasant in no acute distress. HEENT: No scleral icterus. Extraocular movements grossly intact. Moist buccal mucosa. NECK: Supple without lymphadenopathy. CHEST: Unlabored respirations. Equal bilateral excursions. CARDIOVASCULAR: Regular rate and rhythm. Distal 2+ pulses. ABDOMEN: Soft, nontender, nondistended. MUSCULOSKELETAL: No clubbing, cyanosis, or edema. ASSESSMENT: 1. Colon screen. PLAN: 1. Recommend proceeding with a lower endoscopy 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", past "stroke" some mild short term memory problems", throat polyps removed pt stated were cancerous, ANEURYSM ("CHEST AREA")- DR WATCHING IT" History of Any Multi-Drug Resistant Organisms: None Reported Past Surgical History: Back Surgery, Cholecystectomy, Heart Catheterization, Hernia Repair Additional Past Surgical History / Comment(s): nancy inguinal hernia repair, throat polpys removed Past Anesthesia/Blood Transfusion Reactions: Previous Problems w/ Anesthesia, Motion Sickness Additional Past Anesthesia/Blood Transfusion Reaction / Comment(s): STATES TAKES LONGER TO WAKE UP" Smoking Status: Former smoker - Past Family History Mother Family Medical History: CVA/TIA Father Family Medical History: CVA/TIA, Myocardial Infarction ([place]) Medications and Allergies Home Medications Medication Instructions Recorded Confirmed Type Aspirin 325 mg PO DAILY 04/26/17 06/05/18 History Atorvastatin [Lipitor] 10 mg PO HS 04/26/17 06/05/18 History Cholecalciferol (Vitamin D3) 2,000 unit PO DAILY 04/26/17 06/05/18 History [Vitamin D3] Citalopram Hydrobromide 40 mg PO DAILY 04/26/17 06/05/18 History [Citalopram HBr] Clopidogrel [Plavix] 75 mg PO HS 04/26/17 06/05/18 History Lisinopril [Zestril] 20 mg PO BID 04/26/17 06/05/18 History Omeprazole 40 mg PO DAILY 04/26/17 06/05/18 History [place]-3 Fatty Acids/Fish Oil [Fish 1 each PO DAILY 06/05/18 06/05/18 History Oil 1,000 mg Softgel] Allergies Allergy/AdvReac Type Severity Reaction Status Date / Time No Known Allergies Allergy Verified 06/05/18 16:15
[~2018-06-08 07:59] MED LIST: LACTATED RINGERS 1,000 ML IV SCH; LIDOCAINE 1% 20 ML VIAL (10MG/ML) FOR IV START INTRADERMA PRN
[2018-06-08 08:19] VITALS: TEMP 98.4
[2018-06-08] MEDS ORDERED: PROPOFOL 10 MG/ML 20 ML VIAL IV ONE (08:49)
--- NOTE | 2018-06-08 09:12 | P.PCN ---
Date of Procedure: 06/08/18 Description of Procedure: PREOPERATIVE DIAGNOSIS: Colonoscopy screening, first POSTOPERATIVE DIAGNOSIS: Colonoscopy screening, first Diverticulosis, sigmoid OPERATION: Colonoscopy to the ileocecal valve and appendiceal orifice. SURGEON: Mita Correa MD. ANESTHESIA: MAC. INDICATIONS: The patient is a 63-year-old male who presents for his first colonoscopy screening. Benefits and risks were described and informed consent was obtained. DESCRIPTION OF PROCEDURE: The patient had undergone Gatorade, MiraLAX and Dulcolax prep. He had been brought into the operating room and laid in the left lateral decubitus position. After adequate intravenous sedation, the rectum was examined with 2% lidocaine jelly. The prostate was smooth and without abnormalities. No external hemorrhoids were encountered. The rectal tone was within normal limits. No lesions were palpated in the rectal vault. An Olympus colonoscope was advanced until the ileocecal valve and appendiceal orifice were clearly viewed. The prep was fair. The scope was removed with visualization of each mucosal fold. Scattered diverticulosis was encountered. No adenomatous colonic polyps were found. No evidence of focal colitis was found. Retroflexion of the scope demonstrated no internal hemorrhoids. The colon was desufflated. The patient had tolerated the procedure well. Withdrawal time was over 6 minutes. FINDINGS: [place] preparation quality scale 3 (1-5) No internal hemorrhoids Prostate unremarkable. No external prolapsed hemorrhoids. No arteriovenous malformations. No adenomatous polyps. No focal colitis. RECOMMENDATIONS: Lower endoscopy in 10 years, 2028 or Cologaurd Plan - Discharge Summary Discharge Rx Participant: No New Discharge Prescriptions: No Action Citalopram Hydrobromide [Citalopram HBr] 40 mg PO DAILY Cholecalciferol (Vitamin D3) [Vitamin D3] 2,000 unit PO DAILY Lisinopril [Zestril] 20 mg PO BID Omeprazole 40 mg PO DAILY Clopidogrel [Plavix] 75 mg PO HS Atorvastatin [Lipitor] 10 mg PO HS Aspirin 325 mg PO DAILY [place]-3 Fatty Acids/Fish Oil [Fish Oil 1,000 mg Softgel] 1 each PO DAILY Discharge Medication List Aspirin 325 mg PO DAILY 04/26/17 [History] Atorvastatin [Lipitor] 10 mg PO HS 04/26/17 [History] Cholecalciferol (Vitamin D3) [Vitamin D3] 2,000 unit PO DAILY 04/26/17 [History] Citalopram Hydrobromide [Citalopram HBr] 40 mg PO DAILY 04/26/17 [History] Clopidogrel [Plavix] 75 mg PO HS 04/26/17 [History] Lisinopril [Zestril] 20 mg PO BID 04/26/17 [History] Omeprazole 40 mg PO DAILY 04/26/17 [History] [place]-3 Fatty Acids/Fish Oil [Fish Oil 1,000 mg Softgel] 1 each PO DAILY 06/05/18 [History] Follow up Appointment(s)/Referral(s): Mita Correa MD [STAFF PHYSICIAN] - As Needed Patient Instructions/Handouts: *Surgery [facility] - (Anesthesia) Endoscopy Discharge Instructions, Diverticulosis (ED), Diverticulosis Diet (GEN), Colonoscopy (DC) Discharge Disposition: HOME SELF-CARE
[2018-06-08 09:23] VITALS: BP 125/87; PULSE 78; RESP 18
== END 2018-06-08 09:51 | disposition home or self-care (01) ==
LOC: ORWHC2ENDO 07:59
PROVIDERS: ATTEND Surgery Plastic and Reconstructive Surgery
DX: Z12.11 Encounter for screening for malignant neoplasm of colon (principal); K57.30 Diverticulosis of large intestine without perforation or abscess without bleeding; Z85.850 Personal history of malignant neoplasm of thyroid; E78.5 Hyperlipidemia, unspecified; I10 Essential (primary) hypertension; I69.311 Memory deficit following cerebral infarction; Z79.82 Long term (current) use of aspirin; Z87.891 Personal history of nicotine dependence; Z82.49 Family history of ischemic heart disease and other diseases of the circulatory system; Z79.899 Other long term (current) drug therapy
CPT/HCPCS: J2704; G0121

== ENCOUNTER → 2018-10-10 | Outpatient (CLI) | payer BC ==
[2018-10-10 18:25] LABS: C Reactive Protein <0.4 mg/dL (0.0-0.8); Calcium 9.3 mg/dL (8.7-10.3)
== END | disposition home or self-care (01) ==
LOC: LABWHC1 14:31
PROVIDERS: ATTEND Psychiatry & Neurology Neurology
DX: R41.3 Other amnesia (principal); Z86.73 Personal history of transient ischemic attack (TIA), and cerebral infarction without residual deficits
CPT/HCPCS: 36415; 82306; 82310; 84439; 84443; 84481; 85652; 86140

== ENCOUNTER → 2018-12-29 | Outpatient (CLI) | payer BC ==
--- NOTE | 2018-12-29 16:52 | CT ---
EXAMINATION TYPE: CT brain wo con DATE OF EXAM: 12/29/2018 COMPARISON: 07/08/2016 HISTORY: Dizziness and headache without injury CT DLP: 1047.1 mGycm Automated exposure control for dose reduction was used. FINDINGS: There is 5 x 2 cm area of white matter hypodensity right posterior frontal lobe. There is no mass eff ect nor midline shift. There is no sign of intracranial hemorrhage. There is some cerebral cortical a trophy. Calvarium is intact. IMPRESSION: OLD RIGHT POSTERIOR FRONTAL LOBE WHITE MATTER INFARCT UNCHANGED COMPARED TO OLD EXAM. NO ACUTE INTRAC RANIAL ABNORMALITY.
== END | disposition home or self-care (01) ==
LOC: RADCTMAIN 14:45
PROVIDERS: ATTEND Psychiatry & Neurology Neurology
DX: R51 Headache (principal); R42 Dizziness and giddiness
CPT/HCPCS: 70450

== ENCOUNTER 2019-01-21 15:54 | Emergency (ER) | payer BC ==
[2019-01-21 16:11] VITALS: TEMP 98.2
[2019-01-21] MEDS ORDERED: SODIUM CHLORIDE 0.9% 1,000 ML IV STA ×2 (16:24)
[2019-01-21] MEDS ORDERED: KETOROLAC 30 MG/ML 1 ML VIAL IVP STA (16:24)
[2019-01-21] MEDS ORDERED: MORPHINE SULFATE 4 MG/ML SYRINGE IVP STA (16:24)
[2019-01-21] MEDS ORDERED: ONDANSETRON 4 MG/2 ML VIAL IVP STA (16:24)
[2019-01-21 16:37] LABS: Basophils % (A) 1 %; Eosinophils # (A) 0.3 k/uL (0-0.7); Eosinophils % (A) 7 %; HCT 38.3 % (39.0-53.0); HGB 13.1 gm/dL (13.0-17.5); Lymphocytes # (A) 1.6 k/uL (1.0-4.8); Lymphocytes % (A) 32 %; MCH 30.8 pg (25.0-35.0); MCHC 34.1 g/dL (31.0-37.0); MCV 90.3 fL (80.0-100.0); Mean Platelet Volume 7.6; Monocytes # (A) 0.3 k/uL (0-1.0); Monocytes % (A) 7 %; Neutrophils # (A) 2.5 k/uL (1.3-7.7); Neutrophils % (A) 52 %; Platelet Count 191 k/uL (150-450); RBC 4.24 m/uL (4.30-5.90); RDW 13.4 % (11.5-15.5); WBC 4.9 k/uL (3.8-10.6)
--- NOTE | 2019-01-21 16:40 | ED ---
Chest Pain HPI - General Chief Complaint: Chest Pain Stated Complaint: lt arm pain Time Seen by Provider: 01/21/19 16:15 Source: patient, RN notes reviewed, old records reviewed Mode of arrival: ambulatory Limitations: no limitations - History of Present Illness Initial Comments: This 63-year-old male here for suture diversion multiple complaints complaints of headache and neck pain, chest pain and pain that radiates the chest left arm and back. Patient does have history of heart disease. Was noticed to have low- grade fever. No trauma. No significant neurological complaints. No significant headache currently. MD Complaint: chest pain, other (patient w neck and L arm pain, history of same) -: hour(s) Onset: during exertion, other (also complaining of fever) Pain Location: substernal, left chest Pain Radiation: LUE Severity: moderate Severity scale (1-10): 4 Quality: tightness, heaviness Consistency: constant Improves With: nothing Worsens With: nothing Context: recent illness Anginal Symptoms: nausea, vomiting Other Symptoms: palpitations Treatments Prior to Arrival: none - Related Data Home Medications Medication Instructions Recorded Confirmed Aspirin 325 mg PO DAILY 04/26/17 01/21/19 Atorvastatin [Lipitor] 10 mg PO HS 04/26/17 01/21/19 Cholecalciferol (Vitamin D3) 2,000 unit PO DAILY 04/26/17 01/21/19 [Vitamin D3] Citalopram Hydrobromide 40 mg PO DAILY 04/26/17 01/21/19 [Citalopram HBr] Clopidogrel [Plavix] 75 mg PO HS 04/26/17 01/21/19 Lisinopril [Zestril] 20 mg PO BID 04/26/17 01/21/19 Omeprazole 40 mg PO DAILY 04/26/17 01/21/19 [place]-3 Fatty Acids/Fish Oil [Fish 1 cap PO DAILY 06/05/18 01/21/19 Oil 1,000 mg Softgel] Hydrochlorothiazide 12.5 mg PO DAILY 01/21/19 01/21/19 Metoprolol Tartrate [Lopressor] 100 mg PO DAILY 01/21/19 01/21/19 Allergies Allergy/AdvReac Type Severity Reaction Status Date / Time No Known Allergies Allergy Verified 01/21/19 16:54 Review of Systems ROS Statement: Those systems with pertinent positive or pertinent negative responses have been documented in the HPI. ROS Other: All systems not noted in ROS Statement are negative. EKG Findings - EKG Comments: EKG Findings:: EKG shows sinus tachycardia rate 106 AL 178 QRS 106 QTc 472 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", past "stroke" some mild short term memory problems", throat polyps removed pt stated were cancerous, ANEURYSM ("CHEST AREA")- DR WATCHING IT" History of Any Multi-Drug Resistant Organisms: None Reported Past Surgical History: Back Surgery, Cholecystectomy, Heart Catheterization, Hernia Repair Additional Past Surgical History / Comment(s): nancy inguinal hernia repair, throat polpys removed Past Anesthesia/Blood Transfusion Reactions: Previous Problems w/ Anesthesia, Motion Sickness Additional Past Anesthesia/Blood Transfusion Reaction / Comment(s): STATES TAKES LONGER TO WAKE UP" Past Psychological History: Depression Smoking Status: Former smoker - Past Family History Mother Family Medical History: CVA/TIA Father Family Medical History: CVA/TIA, Myocardial Infarction ([place]) General Exam Limitations: no limitations General appearance: alert, in no apparent distress Head exam: Present: atraumatic, normocephalic, normal inspection Eye exam: Present: normal appearance, PERRL, EOMI. Absent: scleral icterus, conjunctival injection, periorbital swelling ENT exam: Present: normal exam, mucous membranes moist Neck exam: Present: normal inspection. Absent: tenderness, meningismus, lymphadenopathy Respiratory exam: Present: normal lung sounds bilaterally. Absent: respiratory distress, wheezes, rales, rhonchi, stridor Cardiovascular Exam: Present: regular rate, normal rhythm, normal heart sounds. Absent: systolic murmur, diastolic murmur, rubs, gallop, clicks GI/Abdominal exam: Present: soft, normal bowel sounds. Absent: distended, tenderness, guarding, rebound, rigid Extremities exam: Present: normal inspection, full ROM, normal capillary refill. Absent: tenderness, pedal edema, joint swelling, calf tenderness Back exam: Present: normal inspection Neurological exam: Present: alert, oriented X3, CN II-XII intact Psychiatric exam: Present: normal affect, normal mood Skin exam: Present: warm, dry, intact, normal color. Absent: rash Course Vital Signs 11/01/21/19 01/21/19 16:07 17:09 18:06 Temperature 98.2 F 98.2 F Pulse Rate 89 89 Pulse Rate [ 88 Emergency Doctor ] Respiratory 20 20 Rate Blood Pressure 193/102 193/102 O2 Sat by Pulse 98 98 Oximetry 01/21/19 19:11 Temperature Pulse Rate 85 Pulse Rate [ Emergency Doctor ] Respiratory 16 Rate Blood Pressure 167/94 O2 Sat by Pulse 96 Oximetry - Reevaluation(s) Reevaluation #1: 01/21/19 17:07 medical record is reviewed Reevaluation #2: 01/21/19 19:49 patient still with chest pain Chest Pain MDM - MDM 63 demale to the ED co chest pain woreening for chest pain observation history of heart disease. Patient 1 week episodic and continuing to get worse Disposition Clinical Impression: Chest pain Disposition: ADMITTED IP TO THIS HOSP Condition: Undetermined Is patient prescribed a controlled substance at d/c from ED?: No
[2019-01-21 16:47] LABS: Albumin 4.5 g/dL (3.5-5.0); Chloride 108 mmol/L (98-107); Glucose 174 mg/dL (74-99); Potassium 3.8 mmol/L (3.5-5.1); Total Protein 7.4 g/dL (6.3-8.2)
[2019-01-21 16:48] LABS: ALT 46 U/L (21-72); AST 33 U/L (17-59); African American GFR (CKD) >90 (>60 ml/min/1.73 sqM); Alkaline Phosphatase 84 U/L (38-126); Anion Gap 12 mmol/L; Blood Urea Nitrogen 16 mg/dL (9-20); C Reactive Protein 23.7 mg/L (<10.0); Calcium 9.2 mg/dL (8.4-10.2); Carbon Dioxide 22 mmol/L (22-30); Creatine Kinase 310 U/L (55-170); Magnesium 1.9 mg/dL (1.6-2.3); Non-African American GFR(CKD) 84 (>60 ml/min/1.73 sqM); Phosphorus 2.9 mg/dL (2.5-4.5); Sodium 142 mmol/L (137-145); Total Bilirubin 0.5 mg/dL (0.2-1.3)
[2019-01-21 16:53] LABS: INR 0.9 (<1.2); Partial Thromboplastin Time 25.9 sec (22.0-30.0); Prothrombin Time 9.8 sec (9.0-12.0)
[2019-01-21 17:22] LABS: Appearance,Urine Clear (Clear); Bilirubin,Urine Negative (Negative); Blood,Urine Negative (Negative); Color,Urine Yellow; Glucose,Urine (UA) Negative (Negative); Ketones,Urine Negative (Negative); Leukocyte Esterase,Urine Negative (Negative); Nitrite,Urine Negative (Negative); PH, Urine 5.5 (5.0-8.0); Protein,Urine Negative (Negative); Urobilinogen,Urine <2.0 mg/dL (<2.0)
--- NOTE | 2019-01-21 17:24 | XR ---
EXAMINATION TYPE: XR chest 2V DATE OF EXAM: 01/21/2019 COMPARISON: 04/26/2017 HISTORY: Weakness TECHNIQUE: Frontal and lateral views of the chest are obtained. FINDINGS: Heart and mediastinum are within normal limits. Lungs are clear. Costophrenic angles are c lear. Diaphragm is normal. Thoracic aorta is atheromatous. There are chest leads. IMPRESSION: No active cardiopulmonary disease. Normal heart. No change.
[2019-01-21] MEDS ORDERED: MORPHINE SULFATE 4 MG/ML SYRINGE IV PRN (18:26)
[2019-01-21] MEDS ORDERED: ASPIRIN 81 MG PO STA (18:26)
[2019-01-21] MEDS ORDERED: HEPARIN SODIUM,PORCINE 5,000 UNIT/ML 1 ML VIAL IV ONE (18:26)
[2019-01-21] MEDS ORDERED: NITROGLYCERIN SL TABS 0.4 MG TAB SUBLINGUAL PRN (18:26)
[2019-01-21] MEDS ORDERED: HEPARIN SODIUM,PORCINE 5,000 UNIT/ML 1 ML VIAL IV PRN (18:26)
[2019-01-21] MEDS ORDERED: HEPARIN SOD,PORK IN 0.45% NACL 25,000 UNIT in 0.45% NACL 1 250ML.BAG IV SCH (18:30)
[2019-01-21] MEDS ORDERED: SODIUM CHLORIDE 0.9% 1,000 ML IV SCH (18:30)
[2019-01-21] MEDS ORDERED: DEXAMETHASONE SOD PHOSPHATE 10 MG/ML 1 ML VIAL IV STA ×2 (20:13→20:16)
[2019-01-21] MEDS ORDERED: ACET/COD 300 MG/30 MG STARTER PACK 6 TAB BTL PO STA (20:13)
--- NOTE | 2019-01-21 20:13 | ED ---
Medical Decision Making - Medical Decision Making 63 male to the ED co chest pain and neck pain, patient states he had a clean heart catherization in the last year, he is more concerned about his neck pain today and would like to be discharged home. - Lab Data Result diagrams: 01/21/19 16:02 01/21/19 16:02 Lab Results 01/21/19 01/21/19 01/21/19 Range/Units 16:02 16:02 16:02 WBC 4.9 (3.8-10.6) k/uL RBC 4.24 L (4.30-5.90) m/uL Hgb 13.1 (13.0-17.5) gm/dL Hct 38.3 L (39.0-53.0) % MCV 90.3 (80.0-100.0) fL MCH 30.8 (25.0-35.0) pg MCHC 34.1 (31.0-37.0) g/dL RDW 13.4 (11.5-15.5) % Plt Count 191 (150-450) k/uL Neutrophils % 52 % Lymphocytes % 32 % Monocytes % 7 % Eosinophils % 7 % Basophils % 1 % Neutrophils # 2.5 (1.3-7.7) k/uL Lymphocytes # 1.6 (1.0-4.8) k/uL Monocytes # 0.3 (0-1.0) k/uL Eosinophils # 0.3 (0-0.7) k/uL Basophils # 0.0 (0-0.2) k/uL PT (9.0-12.0) sec INR (<1.2) APTT (22.0-30.0) sec Sodium 142 (137-145) mmol/L Potassium 3.8 (3.5-5.1) mmol/L Chloride 108 H (98-107) mmol/L Carbon Dioxide 22 (22-30) mmol/L Anion Gap 12 mmol/L BUN 16 (9-20) mg/dL Creatinine 0.96 (0.66-1.25) mg/dL Est GFR (CKD-EPI)AfAm >90 (>60 ml/min/1.73 sqM) Est GFR (CKD-EPI)NonAf 84 (>60 ml/min/1.73 sqM) Glucose 174 H (74-99) mg/dL Plasma Lactic Acid Sy 1.4 (0.7-2.0) mmol/L Calcium 9.2 (8.4-10.2) mg/dL Phosphorus 2.9 (2.5-4.5) mg/dL Magnesium 1.9 (1.6-2.3) mg/dL Total Bilirubin 0.5 (0.2-1.3) mg/dL AST 33 (17-59) U/L ALT 46 (21-72) U/L Alkaline Phosphatase 84 (38-126) U/L Creatine Kinase 310 H (55-170) U/L Troponin I (0.000-0.034) ng/mL C-Reactive Protein 23.7 H (<10.0) mg/L NT-Pro-B Natriuret Pep pg/mL Total Protein 7.4 (6.3-8.2) g/dL Albumin 4.5 (3.5-5.0) g/dL Urine Color Urine Appearance (Clear) Urine pH (5.0-8.0) Ur Specific [place] (1.001-1.035) Urine Protein (Negative) Urine Glucose (UA) (Negative) Urine Ketones (Negative) Urine Blood (Negative) Urine Nitrite (Negative) Urine Bilirubin (Negative) Urine Urobilinogen (<2.0) mg/dL Ur Leukocyte Esterase (Negative) 01/21/19 01/21/19 01/21/19 Range/Units 16:02 16:02 16:02 WBC (3.8-10.6) k/uL RBC (4.30-5.90) m/uL Hgb (13.0-17.5) gm/dL Hct (39.0-53.0) % MCV (80.0-100.0) fL MCH (25.0-35.0) pg MCHC (31.0-37.0) g/dL RDW (11.5-15.5) % Plt Count (150-450) k/uL Neutrophils % % Lymphocytes % % Monocytes % % Eosinophils % % Basophils % % Neutrophils # (1.3-7.7) k/uL Lymphocytes # (1.0-4.8) k/uL Monocytes # (0-1.0) k/uL Eosinophils # (0-0.7) k/uL Basophils # (0-0.2) k/uL PT 9.8 (9.0-12.0) sec INR 0.9 (<1.2) APTT 25.9 (22.0-30.0) sec Sodium (137-145) mmol/L Potassium (3.5-5.1) mmol/L Chloride (98-107) mmol/L Carbon Dioxide (22-30) mmol/L Anion Gap mmol/L BUN (9-20) mg/dL Creatinine (0.66-1.25) mg/dL Est GFR (CKD-EPI)AfAm (>60 ml/min/1.73 sqM) Est GFR (CKD-EPI)NonAf (>60 ml/min/1.73 sqM) Glucose (74-99) mg/dL Plasma Lactic Acid Sy (0.7-2.0) mmol/L Calcium (8.4-10.2) mg/dL Phosphorus (2.5-4.5) mg/dL Magnesium (1.6-2.3) mg/dL Total Bilirubin (0.2-1.3) mg/dL AST (17-59) U/L ALT (21-72) U/L Alkaline Phosphatase (38-126) U/L Creatine Kinase (55-170) U/L Troponin I <0.012 (0.000-0.034) ng/mL C-Reactive Protein (<10.0) mg/L NT-Pro-B Natriuret Pep 56 pg/mL Total Protein (6.3-8.2) g/dL Albumin (3.5-5.0) g/dL Urine Color Urine Appearance (Clear) Urine pH (5.0-8.0) Ur Specific [place] (1.001-1.035) Urine Protein (Negative) Urine Glucose (UA) (Negative) Urine Ketones (Negative) Urine Blood (Negative) Urine Nitrite (Negative) Urine Bilirubin (Negative) Urine Urobilinogen (<2.0) mg/dL Ur Leukocyte Esterase (Negative) 01/21/19 Range/Units 17:10 WBC (3.8-10.6) k/uL RBC (4.30-5.90) m/uL Hgb (13.0-17.5) gm/dL Hct (39.0-53.0) % MCV (80.0-100.0) fL MCH (25.0-35.0) pg MCHC (31.0-37.0) g/dL RDW (11.5-15.5) % Plt Count (150-450) k/uL Neutrophils % % Lymphocytes % % Monocytes % % Eosinophils % % Basophils % % Neutrophils # (1.3-7.7) k/uL Lymphocytes # (1.0-4.8) k/uL Monocytes # (0-1.0) k/uL Eosinophils # (0-0.7) k/uL Basophils # (0-0.2) k/uL PT (9.0-12.0) sec INR (<1.2) APTT (22.0-30.0) sec Sodium (137-145) mmol/L Potassium (3.5-5.1) mmol/L Chloride (98-107) mmol/L Carbon Dioxide (22-30) mmol/L Anion Gap mmol/L BUN (9-20) mg/dL Creatinine (0.66-1.25) mg/dL Est GFR (CKD-EPI)AfAm (>60 ml/min/1.73 sqM) Est GFR (CKD-EPI)NonAf (>60 ml/min/1.73 sqM) Glucose (74-99) mg/dL Plasma Lactic Acid Sy (0.7-2.0) mmol/L Calcium (8.4-10.2) mg/dL Phosphorus (2.5-4.5) mg/dL Magnesium (1.6-2.3) mg/dL Total Bilirubin (0.2-1.3) mg/dL AST (17-59) U/L ALT (21-72) U/L Alkaline Phosphatase (38-126) U/L Creatine Kinase (55-170) U/L Troponin I (0.000-0.034) ng/mL C-Reactive Protein (<10.0) mg/L NT-Pro-B Natriuret Pep pg/mL Total Protein (6.3-8.2) g/dL Albumin (3.5-5.0) g/dL Urine Color Yellow Urine Appearance Clear (Clear) Urine pH 5.5 (5.0-8.0) Ur Specific [place] 1.020 (1.001-1.035) Urine Protein Negative (Negative) Urine Glucose (UA) Negative (Negative) Urine Ketones Negative (Negative) Urine Blood Negative (Negative) Urine Nitrite Negative (Negative) Urine Bilirubin Negative (Negative) Urine Urobilinogen <2.0 (<2.0) mg/dL Ur Leukocyte Esterase Negative (Negative) Disposition Clinical Impression: Chest pain, Neck sprain, Neck pain, Muscle spasm Disposition: HOME SELF-CARE Condition: Undetermined Is patient prescribed a controlled substance at d/c from ED?: No
[2019-01-21 20:26] VITALS: BP 169/94; PULSE 82; RESP 18
[2019-01-22] MEDS ORDERED: ASPIRIN 325 MG TAB PO SCH (09:00)
[2019-01-22] MEDS ORDERED: ATORVASTATIN 80 MG TAB PO SCH (09:00)
== END 2019-01-21 20:24 | disposition home or self-care (01) ==
LOC: EC 15:54 → UNDOADMOB 18:26 → 1SOBS 18:26
DX: R07.9 Chest pain, unspecified (principal); S13.9XXA Sprain of joints and ligaments of unspecified parts of neck, initial encounter; M62.838 Other muscle spasm; I10 Essential (primary) hypertension; E78.5 Hyperlipidemia, unspecified; Z79.82 Long term (current) use of aspirin; Z79.02 Long term (current) use of antithrombotics/antiplatelets; Z79.899 Other long term (current) drug therapy; Z86.73 Personal history of transient ischemic attack (TIA), and cerebral infarction without residual deficits; Z87.891 Personal history of nicotine dependence; X58.XXXA Exposure to other specified factors, initial encounter
CPT/HCPCS: 99285; 96374; 96375 ×3; 36415; 93005; 83880; 80053; 82550; 83605; 83735; 84100; 84484; 85025; 85610; 85730; 86140; 81003; 87040; 71046; 96361 ×4; J2270; J1100; J2405; J1885

== ENCOUNTER 2019-01-22 11:18 | Inpatient (IN) | payer BC ==
[2019-01-22] MEDS: METOPROLOL TARTRATE 50 MG TAB PO SCH (14:11)
[2019-01-22] MEDS: LISINOPRIL 20 MG TAB PO SCH ×2 (14:12→20:17)
[2019-01-22] MEDS ORDERED: amLODIPine 5 MG TAB PO SCH ×2 (14:15→15:56)
[2019-01-22] MEDS ORDERED: HYDROCHLOROTHIAZIDE 12.5 MG CAP PO SCH (14:15)
[2019-01-22] MEDS ORDERED: FUROSEMIDE 10 MG/ML 4 ML VIAL IV STA (15:53)
--- NOTE | 2019-01-22 15:56 | P.CRDCN ---
History of Present Illness Consult date: 01/22/19 Requesting physician: Walter Davila Consult reason: hypertension History of present illness: This is a 63-year-old gentleman who follows regularly with Dr. Sanchez in the office. He has a known history of hypertension, hyperlipidemia, CVA, carotid artery disease, mild aortic regurg/stenosis, he underwent a cardiac catheterization in October 2016 which revealed normal coronary arteries with no gradient across the aortic valve. Was recent echocardiogram with Doppler study showed an ejection fraction of 55-60%, mild aortic regurg, mild aortic stenosis. This was performed in 2017. Patient came to the emergency room at around 4:00 yesterday, was complaining of some neck pain with radiation into his shoulder, he denied any chest discomfort. He was discharged home from the emergency room. Chest x-ray was performed which did not reveal any active cardiopulmonary disease. He came back to the emergency room later on in the day, was complaining about some neck discomfort again. Patient was also found to have a significantly elevated blood pressure was admitted to the hospital for same. Blood pressure on arrival here 193/102, heart rate in the 70s, afebrile. Blood pressure at present, 178/102, 188/106, heart rate in the 80s to 90s, 94% on room air. Blood cell count is normal, hemoglobin 13.1, platelet count 191. Sodium 142, potassium 3.8, BUN 16, creatinine 0.9. Troponins are negative 2, magnesium 1.9. Free T4 and TSH are normal. BNP 56. Patient's home medications included omeprazole, metoprolol 100 daily, Antivert, Zestril 20 mg twice a day, Plavix 75 mg daily, Lipitor 10 mg daily, and a full aspirin. 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", past "stroke" some mild short term memory problems", throat polyps removed pt stated were cancerous, ANEURYSM ("CHEST AREA")- DR WATCHING IT" History of Any Multi-Drug Resistant Organisms: None Reported Past Surgical History: Back Surgery, Cholecystectomy, Heart Catheterization, Hernia Repair Additional Past Surgical History / Comment(s): nancy inguinal hernia repair, throat polpys removed Past Anesthesia/Blood Transfusion Reactions: Previous Problems w/ Anesthesia, Motion Sickness Additional Past Anesthesia/Blood Transfusion Reaction / Comment(s): STATES TAKES LONGER TO WAKE UP" Past Psychological History: Depression Smoking Status: Former smoker - Past Family History Mother Family Medical History: CVA/TIA Father Family Medical History: CVA/TIA, Myocardial Infarction ([place]) Medications and Allergies Home Medications Medication Instructions Recorded Confirmed Type Aspirin 325 mg PO DAILY@1000 04/26/17 01/22/19 History Atorvastatin [Lipitor] 10 mg PO HS 04/26/17 01/22/19 History Cholecalciferol (Vitamin D3) 2,000 unit PO DAILY@1000 04/26/17 01/22/19 History [Vitamin D3] Citalopram Hydrobromide 40 mg PO DAILY@1000 04/26/17 01/22/19 History [Citalopram HBr] Clopidogrel [Plavix] 75 mg PO HS 04/26/17 01/22/19 History Lisinopril [Zestril] 20 mg PO BID 04/26/17 01/22/19 History Omeprazole 40 mg PO DAILY@1000 04/26/17 01/22/19 History [place]-3 Fatty Acids/Fish Oil [Fish 1 cap PO DAILY 06/05/18 01/22/19 History Oil 1,000 mg Softgel] Metoprolol Tartrate [Lopressor] 100 mg PO DAILY 01/21/19 01/22/19 History Ibuprofen [Motrin] 800 mg PO Q6H PRN 01/22/19 01/22/19 History Meclizine [Antivert] 12.5 mg PO TID PRN 01/22/19 01/22/19 History Allergies Allergy/AdvReac Type Severity Reaction Status Date / Time hydrochlorothiazide Allergy Rash/Hives Verified 01/22/19 14:17 Physical Exam Vitals: Vital Signs Temp Pulse Resp BP BP Pulse Ox 01/22/19 13:20 98.3 F 108 H 16 178/102 188/106 94 L Intake and Output 01/22/19 01/22/19 01/22/19 06:59 14:59 22:59 Intake Total 200 Balance 200 Intake: Oral 200 Other: Weight 84.5 kg PHYSICAL EXAMINATION: GENERAL: 63-year-old gentleman in no acute distress at the time of my examination HEENT: Head is atraumatic, normocephalic. Pupils equal, round. Sclera anicteric. Conjunctiva are clear. Mucous membranes of the mouth are moist. Neck is supple. There is no elevated jugular venous pressure. No carotid bruit is heard. HEART EXAMINATION: S1 and S2 systolic murmur is heard in the aortic area. CHEST EXAMINATION: Lungs are clear with mild diminished air entry at the bases ABDOMEN: Soft, nontender. Bowel sounds are heard. No organomegaly noted. EXTREMITIES: 2+ peripheral pulses with trace to 1+ evidence of peripheral edema and no calf tenderness noted. NEUROLOGIC patient is awake, alert and oriented 3 . . Results Cardiac Enzymes 01/22/19 Range/Units 14:31 Troponin I <0.012 (0.000-0.034) ng/mL Current Medications Generic Name Dose Route Start Last Admin Trade Name Freq PRN Reason Stop Dose Admin Amlodipine Besylate 5 mg 01/22/19 14:15 01/22/19 14:11 Norvasc PO 5 mg DAILY JUNAID Administration Lisinopril 20 mg 01/22/19 14:06 01/22/19 14:12 Zestril PO 20 mg BID JUNAID Administration Metoprolol Tartrate 100 mg 01/22/19 14:15 01/22/19 14:11 Lopressor PO 100 mg DAILY JUNAID Administration Intake and Output 01/22/19 01/22/19 01/22/19 06:59 14:59 22:59 Intake Total 200 Balance 200 Intake: Oral 200 Other: Weight 84.5 kg Patient Weight 01/23/19 06:59 Weight 84.5 kg EKG Interpretations (text) EKG shows a sinus tachycardia with incomplete right bundle branch block pattern no acute changes noted Assessment and Plan Plan: ASSESSMENT and plan 1. Right neck and Shoulder pain, atypical with most recent normal cardiac catheterization 10/2016. 2. Hypertension urgency 3. Dyslipidemia 4. Carotid artery disease with totally occluded right ICA 5. History of CVA 6. Non-rheumatic aortic stenosis Plan We will repeat an echocardiogram with Doppler study. Increase Norvasc to 10 mg daily. Patient had been started on high jugular Dyazide in the office in September because of some mild peripheral edema, he states that he stopped taking that because he developed a rash, we will give him a one time dose of IV Lasix. If blood pressure is more stable tomorrow, may consider stress test. Patient's pain is atypical however according to the office note he has been experiencing some intermittent chest pains even though atypical in nature. DNP note has been reviewed, I agree with a documented findings and plan of care. Patient was seen and examined.
[2019-01-22] MEDS ORDERED: amLODIPine 5 MG TAB PO STA (16:00)
--- NOTE | 2019-01-22 17:19 | ECHOF ---
Referral Reason:htn MEASUREMENTS -------- HEIGHT: 157.5 cm WEIGHT: 84.4 kg BP: RVIDd: 2.7 cm (< 3.3) IVSd: 1.6 cm (0.6 - 1.1) LVIDd: 2.8 cm (3.9 - 5.3) LVPWd: 1.6 cm (0.6 - 1.1) IVSs: 2.1 cm LVIDs: 1.6 cm LVPWs: 2.2 cm LAESV Index (A-L): 19.46 ml/m Ao Diam: 3.0 cm (2.0 - 3.7) AV Cusp: 1.6 cm (1.5 - 2.6) LA Diam: 3.7 cm (2.7 - 3.8) MV EXCURSION: 12.842 mm (> 18.000) MV EF SLOPE: 54 mm/s (70 - 150) EPSS: 0.5 cm MV E Shyam: 1.03 m/s MV DecT: 224 ms MV A Shyam: 1.25 m/s MV E/A Ratio: 0.83 AV maxP.69 mmHg AV meanP.87 mmHg AR PHT: 338 ms RAP: 5.00 mmHg RVSP: 23.73 mmHg TAPSE: 20.82 mm FINDINGS -------- Sinus rhythm. This was a technically good study. The left ventricular size is normal. There is moderate concentric left ventricular hypertrophy. O verall left ventricular systolic function is normal with, an EF between 55 - 60 %. The diastolic fi lling pattern is normal for the age of the patient 13.26. The right ventricle is normal in size. The right ventricular systolic function is normal. The left atrial size is normal. Normal LA size by volume 22+/-6 ml/m2. The right atrial size is normal. Aortic valve is trileaflet and is moderately thickened. There is mild aortic regurgitation. There is moderate aortic stenosis present. Peak/mean gradient across the Aortic Valve is 35.69mmHg / 21. 87mmHg. The mitral valve is normal. The mitral valve leaflets are mildly thickened. Mild mitral regurgita tion is present. The tricuspid valve appears structurally normal. Mild tricuspid regurgitation present. Right vent ricular systolic pressure is normal at < 35 mmHg. There is no pulmonic regurgitation present. The aortic root size is normal. IVC Not well visulized. There is no pericardial effusion. CONCLUSIONS -------- 1. Sinus rhythm. 2. This was a technically good study. 3. The left ventricular size is normal. 4. There is moderate concentric left ventricular hypertrophy. 5. Overall left ventricular systolic function is normal with, an EF between 55 - 60 %. 6. The diastolic filling pattern is normal for the age of the patient 13.26 7. The right ventricle is normal in size. 8. The right ventricular systolic function is normal. 9. The left atrial size is normal. 10. Normal LA size by volume 22+/-6 ml/m2. 11. The right atrial size is normal. 12. Aortic valve is trileaflet and is moderately thickened. 13. There is mild aortic regurgitation. 14. There is moderate aortic stenosis present. 15. Peak/mean gradient across the Aortic Valve is 35.69mmHg / 21.87mmHg. 16. The mitral valve is normal. 17. The mitral valve leaflets are mildly thickened. 18. Mild mitral regurgitation is present. 19. The tricuspid valve appears structurally normal. 20. Mild tricuspid regurgitation present. 21. Right ventricular systolic pressure is normal at < 35 mmHg. 22. There is no pulmonic regurgitation present. 23. The aortic root size is normal. 24. IVC Not well visulized. 25. There is no pericardial effusion. KETTLE OPERATOR: Albina Franklin RDCS
[2019-01-22] MEDS ORDERED: MECLIZINE 12.5 MG TAB PO PRN (17:53)
[2019-01-22] MEDS ORDERED: ACETAMINOPHEN TAB 325 MG TAB PO PRN (17:57)
[2019-01-22] MEDS ORDERED: CLOPIDOGREL 75 MG TAB PO SCH (21:00)
[2019-01-22] MEDS ORDERED: ATORVASTATIN 10 MG TAB PO SCH (21:00)
[2019-01-23 00:38] VITALS: RESP 18
[2019-01-23 06:42] LABS: Calcium 9.7 mg/dL (8.4-10.2); Potassium 4.2 mmol/L (3.5-5.1)
[2019-01-23 08:21] VITALS: TEMP 98
[2019-01-23] MEDS: LISINOPRIL 20 MG TAB PO SCH (08:51)
[2019-01-23] MEDS ORDERED: amLODIPine 10 MG TAB PO SCH ×2 (09:00)
[2019-01-23] MEDS: METOPROLOL TARTRATE 50 MG TAB PO SCH (09:51)
[2019-01-23] MEDS ORDERED: CITALOPRAM HYDROBROMIDE 20 MG TAB PO SCH (10:00)
[2019-01-23] MEDS ORDERED: PANTOPRAZOLE 40 MG TABLET PO SCH (10:00)
[2019-01-23] MEDS ORDERED: ASPIRIN 325 MG TAB PO SCH (10:00)
[2019-01-23] MEDS ORDERED: CHOLECALCIFEROL 1,000 UNIT TAB PO SCH (10:00)
--- NOTE | 2019-01-23 10:17 | PN ---
PROGRESS NOTE Mr. Cullen is a 63-year-old male who presented with neck and arm discomfort and elevated blood pressure. He has no history of obstructive coronary artery disease by cardiac catheterization in October 2016. He still has some neck discomfort related to position. He denies any chest pain. No dizziness. No palpitation. He denies any nausea. He continues to be at this time on amlodipine 10 mg daily, aspirin once a day, Lipitor 10 mg daily, Plavix 75 mg daily, Zestril 20 mg twice a day, metoprolol tartrate 100 mg daily. PHYSICAL EXAMINATION: Blood pressure between the 130s and 150s with heart rate in the 80s. LUNGS: Clear. HEART: Regular rate and rhythm. S1, S2. No S3. No rub. ABDOMEN: Soft, nontender. EXTREMITIES: No edema. Neck pain discomfort reproducible by movement of the neck. LAB DATA: Lab data revealed BUN and creatinine 20 and 1.18. Troponin less than 0.012. His echocardiogram revealed a preserved left ventricular size and systolic function. IMPRESSION: 1. Hypertension, under better control but remains elevated. 2. Neck and arm discomfort atypical for ischemic heart disease. 3. History of carotid disease. 4. Mild aortic stenosis. RECOMMENDATION: From the cardiac standpoint, we will continue on the present therapy. He will follow his blood pressure at home and depending on the trend, further adjustment will be made. Patient had allergy from the HYDROCHLOROTHIAZIDE. He will follow up with Dr. Booth and depending on the trend of his blood pressure, further adjustment will be made. MMODL / IJN: [id number] /
--- NOTE | 2019-01-23 11:11 | P.HPIM ---
History of Present Illness 63-year-old male presented to family practice physician Dr. Walter Davila with complaints of chest pain accompanied with dizziness and dyspnea periods patient sent to the emergency room evaluated and discharged home. Patient revisited family physician and found to be hypertensive was then directed admission for evaluation of chest pain hypertension. Patient complains of chronic neck pain Review of Systems Cardiovascular: Reports chest pain, Reports dyspnea on exertion Musculoskeletal: Reports neck pain 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", past "stroke" some mild short term memory problems", throat polyps removed pt stated were cancerous, ANEURYSM ("CHEST AREA")- DR WATCHING IT" History of Any Multi-Drug Resistant Organisms: None Reported Past Surgical History: Back Surgery, Cholecystectomy, Heart Catheterization, Hernia Repair Additional Past Surgical History / Comment(s): nancy inguinal hernia repair, throat polpys removed Past Anesthesia/Blood Transfusion Reactions: Previous Problems w/ Anesthesia, Motion Sickness Additional Past Anesthesia/Blood Transfusion Reaction / Comment(s): STATES TAKES LONGER TO WAKE UP" Past Psychological History: Depression Smoking Status: Former smoker - Past Family History Mother Family Medical History: CVA/TIA Father Family Medical History: CVA/TIA, Myocardial Infarction ([place]) Additional Family Medical History / Comment(s): Father of a [place] while in his 60s or 70s Medications and Allergies Home Medications Medication Instructions Recorded Confirmed Type Aspirin 325 mg PO DAILY@1000 04/26/17 01/22/19 History Atorvastatin [Lipitor] 10 mg PO HS 04/26/17 01/22/19 History Cholecalciferol (Vitamin D3) 2,000 unit PO DAILY@99904/26/17 01/22/19 History [Vitamin D3] Citalopram Hydrobromide 40 mg PO DAILY@1000 04/26/17 01/22/19 History [Citalopram HBr] Clopidogrel [Plavix] 75 mg PO HS 04/26/17 01/22/19 History Lisinopril [Zestril] 20 mg PO BID 04/26/17 01/22/19 History Omeprazole 40 mg PO DAILY@1000 04/26/17 01/22/19 History [place]-3 Fatty Acids/Fish Oil [Fish 1 cap PO DAILY 06/05/18 01/22/19 History Oil 1,000 mg Softgel] Metoprolol Tartrate [Lopressor] 100 mg PO DAILY 01/21/19 01/22/19 History Ibuprofen [Motrin] 800 mg PO Q6H PRN 01/22/19 01/22/19 History Meclizine [Antivert] 12.5 mg PO TID PRN 01/22/19 01/22/19 History Allergies Allergy/AdvReac Type Severity Reaction Status Date / Time hydrochlorothiazide Allergy Rash/Hives Verified 01/22/19 14:17 Physical Exam Vitals: Vital Signs Temp Pulse Resp BP BP Pulse Ox 01/23/19 08:19 98 F 88 18 152/84 94 L 01/23/19 04:00 99.4 F 87 18 174/95 95 01/23/19 00:00 98.5 F 86 18 138/83 93 L 01/22/19 20:00 97.8 F 88 17 131/75 95 01/22/19 18:38 87 167/84 01/22/19 16:00 95 16 01/22/19 15:50 97.7 F 95 16 180/89 175/87 97 01/22/19 13:20 98.3 F 108 H 16 178/102 188/106 94 L Intake and Output 01/22/19 01/23/19 01/23/19 22:59 06:59 14:59 Intake Total 220 Output Total 2650 1000 Balance -2430 -1000 Intake: IV 20 Invasive Line 1 20 Oral 200 Output: Urine 2650 1000 Other: Voiding Method Toilet # Voids 1 4 Weight 84.5 kg 82.2 kg - Constitutional General appearance: mild distress - EENT Eyes: PERRLA Ears: bilateral: normal - Neck Neck: normal ROM - Respiratory Respiratory: bilateral: CTA - Cardiovascular Rhythm: regular - Gastrointestinal General gastrointestinal: soft - Integumentary Integumentary: normal - Neurologic Neurologic: CNII-XII intact - Musculoskeletal Musculoskeletal: gait normal - Psychiatric Psychiatric: A&O x's 3, appropriate affect, intact judgment & insight Results CBC & Chem 7: 01/23/19 05:59 Labs: Abnormal Lab Results - Last 24 Hours (Table) 01/23/19 Range/Units 05:59 Glucose 103 H (74-99) mg/dL Chest x-ray: report reviewed Thrombosis Risk Factor Assmnt - Choose All That Apply Any of the Below Risk Factors Present?: Yes Each Factor Represents 1 point: Obesity (BMI >25) Other Risk Factors: Yes Each Risk Factor Represents 2 Points: Age 61-74 years, Malignancy Other congenital or acquired thrombophilia - If yes, enter type in comment: No Thrombosis Risk Factor Assessment Total Risk Factor Score: 5 Thrombosis Risk Factor Assessment Level: High Risk Assessment and Plan Plan: Assessment Right neck and shoulder pain Chest pain atypical negative troponins Hypertension urgency Dyslipidemia Carotid artery disease with total occlusion a right ICA monitored by Dr. Gray History of CVA Nonrheumatic aortic stenosis Plan Control blood pressure Follow-up with cardiology in 2 weeks for stress tests Neck x-ray
[2019-01-23 11:52] VITALS: BP 123/72; PULSE 75
--- NOTE | 2019-01-23 12:22 | XR ---
Cervical spine HISTORY: Neck pain 5 views of the cervical spine There is multilevel spondylosis. Cervical vertebral bodies show preserved height. Bone mineralization is reduced. There is multilevel facet arthropathy. Minimal grade 1 retrolisthesis present at C6-7, t here is associated loss of disc height. Anterolisthesis grade 1 C7-T1. There is multilevel spondylosi s. Facet arthropathy changes are present. Dense vascular calcifications likely in the distribution of the carotid arteries are noted. There is some foraminal encroachment on the right at C3-4 greater th an on the left. Some left-sided foraminal encroachment suspected at C6-7. IMPRESSION: Degenerative disc disease and facet arthropathy, osteopenia.
--- NOTE | 2019-01-23 14:03 | P.DS ---
Providers Date of admission: 01/22/19 12:41 Expected date of discharge: 01/23/19 Attending physician: Walter Davila Consults: 01/22/19 13:37 Consult Physician Urgent Consulting Provider: Rios Gupta Consult Reason/Comments: chest pain Do you want consulting provider notified?: Yes Placement Type Exists?: Yes Primary care physician: Walter Davila Hospital Course: 63 old male was a direct admit from the physician's office for complaints of chest pain. Patient also complained of neck pain. Patient was evaluated by cardiology echo done cleared for discharge. Scheduled for stress test in two weeks. We'll discuss MRI of the neck at follow up with PCP office visit. Assessment chest pain atypical cleared by cardiology chronic neck pain with degenerative disc disease hypertension urgency dyslipidemia carotid artery disease with toll occluded right ICAC by Dr. Gray history of CVA nondramatic aortic stenosis Plan follow up two weeks for a stress test with cardiology follow up with family physician regarding degenerative disc disease neck and possible MRI Plan - Discharge Summary Discharge Rx Participant: No New Discharge Prescriptions: New Atorvastatin [Lipitor] 40 mg PO HS #90 tab amLODIPine [Norvasc] 10 mg PO DAILY #90 tab Acetaminophen Tab [Tylenol] 650 mg PO Q6HR PRN tab PRN Reason: Fever And/ Or Pain Continue Citalopram Hydrobromide [Citalopram HBr] 40 mg PO DAILY@1000 Cholecalciferol (Vitamin D3) [Vitamin D3] 2,000 unit PO DAILY@1000 Lisinopril [Zestril] 20 mg PO BID Omeprazole 40 mg PO DAILY@1000 Clopidogrel [Plavix] 75 mg PO HS Aspirin 325 mg PO DAILY@1000 [place]-3 Fatty Acids/Fish Oil [Fish Oil 1,000 mg Softgel] 1 cap PO DAILY Metoprolol Tartrate [Lopressor] 100 mg PO DAILY Meclizine [Antivert] 12.5 mg PO TID PRN PRN Reason: DIZZINESS Discontinued Atorvastatin [Lipitor] 10 mg PO HS Ibuprofen [Motrin] 800 mg PO Q6H PRN PRN Reason: Pain Discharge Medication List Aspirin 325 mg PO DAILY@1000 04/26/17 [History] Cholecalciferol (Vitamin D3) [Vitamin D3] 2,000 unit PO DAILY@1000 04/26/17 [History] Citalopram Hydrobromide [Citalopram HBr] 40 mg PO DAILY@1000 04/26/17 [History] Clopidogrel [Plavix] 75 mg PO HS 04/26/17 [History] Lisinopril [Zestril] 20 mg PO BID 04/26/17 [History] Omeprazole 40 mg PO DAILY@1000 04/26/17 [History] [place]-3 Fatty Acids/Fish Oil [Fish Oil 1,000 mg Softgel] 1 cap PO DAILY 06/05/18 [History] Metoprolol Tartrate [Lopressor] 100 mg PO DAILY 01/21/19 [History] Meclizine [Antivert] 12.5 mg PO TID PRN 01/22/19 [History] Acetaminophen Tab [Tylenol] 650 mg PO Q6HR PRN tab 01/23/19 [Rx] Atorvastatin [Lipitor] 40 mg PO HS #90 tab 01/23/19 [Rx] amLODIPine [Norvasc] 10 mg PO DAILY #90 tab 01/23/19 [Rx] Follow up Appointment(s)/Referral(s): Walter Davila MD [Primary Care Provider] - 1 Week Bernardo Booth MD [STAFF PHYSICIAN] - 2 Weeks Patient Instructions/Handouts: Hypertension (DC) Activity/Diet/Wound Care/Special Instructions: follow up for stress test in office in 2 weeks Discharge Disposition: HOME SELF-CARE
[2019-01-23] MEDS ORDERED: ATORVASTATIN 40 MG TAB PO SCH (21:00)
[2019-01-24] MEDS ORDERED: ASPIRIN 81 MG PO SCH (10:00)
== END 2019-01-23 15:27 | disposition home or self-care (01) | DRG 313 ==
LOC: 3SCARD 12:41
PROVIDERS: ADMIT Family Medicine; ATTEND Family Medicine
DX: R07.89 Other chest pain (principal); E78.5 Hyperlipidemia, unspecified; F32.9 Major depressive disorder, single episode, unspecified; I10 Essential (primary) hypertension; I16.0 Hypertensive urgency; I35.0 Nonrheumatic aortic (valve) stenosis; M50.30 Other cervical disc degeneration, unspecified cervical region; Z79.02 Long term (current) use of antithrombotics/antiplatelets; Z79.82 Long term (current) use of aspirin; Z79.899 Other long term (current) drug therapy; Z82.49 Family history of ischemic heart disease and other diseases of the circulatory system; Z86.73 Personal history of transient ischemic attack (TIA), and cerebral infarction without residual deficits; Z87.891 Personal history of nicotine dependence
CPT/HCPCS: 72050; 80048; 84484; 93306

== ENCOUNTER 2020-01-14 11:59 | Emergency (ER) | payer BC ==
[2020-01-14] MEDS ORDERED: HYDROmorphone 0.5 MG/0.5 ML SYRINGE IVP STA (12:17)
[2020-01-14] MEDS ORDERED: ONDANSETRON 4 MG/2 ML VIAL IVP STA (12:17)
[2020-01-14] MEDS ORDERED: SODIUM CHLORIDE 0.9% 1,000 ML IV STA ×2 (12:17)
[2020-01-14] MEDS ORDERED: FAMOTIDINE 20 MG/2 ML VIAL IV STA (12:19)
--- NOTE | 2020-01-14 12:23 | ED ---
General Adult HPI - General Chief complaint: Nausea/Vomiting/Diarrhea Stated complaint: Vomiting Time Seen by Provider: 01/14/20 12:10 Source: patient, family, RN notes reviewed Mode of arrival: wheelchair Limitations: no limitations - History of Present Illness Initial comments: patient is a pleasant 64-year-old male presenting to the emergency Department with complaints of nausea vomiting and abdominal discomfort.patient has had cough for the past couple weeks. Cough has been minimal. Patient has had chills last couple of days. Patient was onaware that he had a fever. No constipation or diarrhea. Abdominal discomfort is more right upper abdomen and rated as 6/10. No radiation.atient believes he has previously had his gallbladder removed. - Related Data Home Medications Medication Instructions Recorded Confirmed Aspirin 325 mg PO DAILY 04/26/17 01/14/20 Cholecalciferol (Vitamin D3) 2,000 unit PO DAILY 04/26/17 01/14/20 [Vitamin D3] Citalopram Hydrobromide 40 mg PO DAILY 04/26/17 01/14/20 [Citalopram HBr] Clopidogrel [Plavix] 75 mg PO HS 04/26/17 01/14/20 Omeprazole 40 mg PO DAILY 04/26/17 01/14/20 lisinopriL [Zestril] 20 mg PO BID 04/26/17 01/14/20 [place]-3 Fatty Acids/Fish Oil [Fish 1 cap PO DAILY 06/05/18 01/14/20 Oil 1,000 mg Softgel] Atorvastatin Calcium [Lipitor] 10 mg PO HS 01/14/20 01/14/20 Previous Rx's Medication Instructions Recorded Acetaminophen Tab [Tylenol] 650 mg PO Q6HR PRN tab 01/23/19 Ondansetron Odt [Zofran Odt] 4 mg PO Q8HR PRN #10 tab 01/14/20 Allergies Allergy/AdvReac Type Severity Reaction Status Date / Time hydrochlorothiazide Allergy Rash/Hives Verified 01/14/20 13:08 Review of Systems ROS Statement: Those systems with pertinent positive or pertinent negative responses have been documented in the HPI. ROS Other: All systems not noted in ROS Statement are negative. Constitutional: Reports: chills Eyes: Denies: eye pain ENT: Denies: ear pain Respiratory: Reports: cough. Denies: dyspnea Cardiovascular: Denies: chest pain Endocrine: Denies: fatigue Gastrointestinal: Reports: abdominal pain, nausea, vomiting. Denies: diarrhea, constipation Genitourinary: Denies: dysuria Musculoskeletal: Denies: back pain Skin: Denies: rash Neurological: Denies: weakness 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", past "stroke" some mild short term memory problems", throat polyps removed pt stated were cancerous, ANEURYSM ("CHEST AREA")- DR WATCHING IT" History of Any Multi-Drug Resistant Organisms: None Reported Past Surgical History: Back Surgery, Cholecystectomy, Heart Catheterization, Hernia Repair Additional Past Surgical History / Comment(s): nancy inguinal hernia repair, throat polpys removed Past Anesthesia/Blood Transfusion Reactions: Previous Problems w/ Anesthesia, Motion Sickness Additional Past Anesthesia/Blood Transfusion Reaction / Comment(s): STATES TAKES LONGER TO WAKE UP" Past Psychological History: Depression Smoking Status: Former smoker Past Alcohol Use History: None Reported Past Drug Use History: None Reported - Past Family History Mother Family Medical History: CVA/TIA Father Family Medical History: CVA/TIA, Myocardial Infarction ([place]) Additional Family Medical History / Comment(s): Father of a [place] while in his 60s or 70s General Exam Limitations: no limitations General appearance: alert, in no apparent distress Head exam: Present: normocephalic Eye exam: Present: normal appearance Neck exam: Present: normal inspection Respiratory exam: Present: normal lung sounds bilaterally Cardiovascular Exam: Present: regular rate, normal rhythm Expanded Peripheral pulses: 2+: Radial (R), Radial (L), Dorsalis Pedis (R), Dorsalis Pedis (L) GI/Abdominal exam: Present: soft, tenderness (moderate tenderness, right upper quadrant), normal bowel sounds. Absent: distended, guarding, rebound, rigid, pulsatile mass Extremities exam: Present: normal inspection. Absent: pedal edema, calf ten derness Neurological exam: Present: alert Psychiatric exam: Present: normal affect, normal mood Skin exam: Present: normal color Course Vital Signs 01/14/20 12:03 Temperature 101.1 F H Pulse Rate 98 Respiratory 20 Rate Blood Pressure 133/86 O2 Sat by Pulse 95 Oximetry EKG Findings - EKG Comments: EKG Findings:: ormal sinus rhythm 97. [place] 146. QRS 112. QT 368. QTC 467. Left axis. Right bundle branch block. No acute ST change. Medical Decision Making - Medical Decision Making atient reevaluated and resting comfortably in bed. Patient is feeling much better and does request discharge home. Patient is updated on results. Patient is made aware of growth of his aortic aneurysm. Patient states he is switching to see Dr. Booth for this. Case was discussed with Dr. Booth who is familiar with this patient and okay with discharge however will need to follow-up with the patient. Case was also discussed with Pb, covering with Dr. Davila. He is made aware ofvital signs and lab work as well as chest x-ray. Patient does have very high suspicion for code. Patient has hadcough that is been mild for 2 weeks. Patient denies any dyspnea. Patient is doing well clinically and is stable for discharge. - Lab Data Result diagrams: 01/14/20 12:31 01/14/20 12:31 Lab Results 01/14/20 01/14/20 01/14/20 Range/Units 12:31 12:31 12:31 WBC 3.9 (3.8-10.6) k/uL RBC 4.32 (4.30-5.90) m/uL Hgb 13.1 (13.0-17.5) gm/dL Hct 38.1 L (39.0-53.0) % MCV 88.3 (80.0-100.0) fL MCH 30.3 (25.0-35.0) pg MCHC 34.2 (31.0-37.0) g/dL RDW 14.7 (11.5-15.5) % Plt Count 128 L (150-450) k/uL MPV 8.6 Neutrophils % 74 % Lymphocytes % 18 % Monocytes % 5 % Eosinophils % 1 % Basophils % 0 % Neutrophils # 2.9 (1.3-7.7) k/uL Lymphocytes # 0.7 L (1.0-4.8) k/uL Monocytes # 0.2 (0-1.0) k/uL Eosinophils # 0.0 (0-0.7) k/uL Basophils # 0.0 (0-0.2) k/uL PT 10.1 (9.0-12.0) sec INR 1.0 (<1.2) APTT 26.1 (22.0-30.0) sec Sodium 130 L (137-145) mmol/L Potassium 4.4 (3.5-5.1) mmol/L Chloride 96 L (98-107) mmol/L Carbon Dioxide 24 (22-30) mmol/L Anion Gap 10 mmol/L BUN 25 H (9-20) mg/dL Creatinine 1.41 H (0.66-1.25) mg/dL Est GFR (CKD-EPI)AfAm 61 (>60 ml/min/1.73 sqM) Est GFR (CKD-EPI)NonAf 53 (>60 ml/min/1.73 sqM) Glucose 113 H (74-99) mg/dL Calcium 8.5 (8.4-10.2) mg/dL Total Bilirubin 1.0 (0.2-1.3) mg/dL AST 72 H (17-59) U/L ALT 50 H (4-49) U/L Alkaline Phosphatase 45 (38-126) U/L Troponin I (0.000-0.034) ng/mL C-Reactive Protein 65.6 H (<10.0) mg/L Total Protein 7.5 (6.3-8.2) g/dL Albumin 4.3 (3.5-5.0) g/dL Amylase 74 (30-110) U/L Lipase 316 H (23-300) U/L 01/14/20 Range/Units 12:31 WBC (3.8-10.6) k/uL RBC (4.30-5.90) m/uL Hgb (13.0-17.5) gm/dL Hct (39.0-53.0) % MCV (80.0-100.0) fL MCH (25.0-35.0) pg MCHC (31.0-37.0) g/dL RDW (11.5-15.5) % Plt Count (150-450) k/uL MPV Neutrophils % % Lymphocytes % % Monocytes % % Eosinophils % % Basophils % % Neutrophils # (1.3-7.7) k/uL Lymphocytes # (1.0-4.8) k/uL Monocytes # (0-1.0) k/uL Eosinophils # (0-0.7) k/uL Basophils # (0-0.2) k/uL PT (9.0-12.0) sec INR (<1.2) APTT (22.0-30.0) sec Sodium (137-145) mmol/L Potassium (3.5-5.1) mmol/L Chloride (98-107) mmol/L Carbon Dioxide (22-30) mmol/L Anion Gap mmol/L BUN (9-20) mg/dL Creatinine (0.66-1.25) mg/dL Est GFR (CKD-EPI)AfAm (>60 ml/min/1.73 sqM) Est GFR (CKD-EPI)NonAf (>60 ml/min/1.73 sqM) Glucose (74-99) mg/dL Calcium (8.4-10.2) mg/dL Total Bilirubin (0.2-1.3) mg/dL AST (17-59) U/L ALT (4-49) U/L Alkaline Phosphatase (38-126) U/L Troponin I <0.012 (0.000-0.034) ng/mL C-Reactive Protein (<10.0) mg/L Total Protein (6.3-8.2) g/dL Albumin (3.5-5.0) g/dL Amylase (30-110) U/L Lipase (23-300) U/L - Radiology Data Radiology results: report reviewed (computed tomography scan abdomen pelvis shows peripheral lower lobe infiltrates, suspect atypical such as cold bed. Hepatomegaly. 5.4 cm infrarenal aortic aneurysm. Discussed with radiologist.), image reviewed (chest x-ray shows bilateral infiltrates) Disposition Clinical Impression: Vomiting, Abdominal pain, COVID-19, Abdominal aortic aneurysm Disposition: HOME SELF-CARE Condition: Stable Instructions (If sedation given, give patient instructions): Abdominal Pain (ED), Acute Nausea and Vomiting (ED) Additional Instructions: please follow-up both with Dr. Davila and Dr. Booth this week. Return for in creased abdominal discomfort, uncontrolled vomiting, not tolerating fluids, difficulty breathing, worsening symptoms or any other concerns. [id number] Tylenol as needed for fever or chills or muscle aches. [place] [facility] [id number] vitamin C, vitamin D, and zinc Prescriptions: Ondansetron Odt [Zofran Odt] 4 mg PO Q8HR PRN #10 tab PRN Reason: Nausea Is patient prescribed a controlled substance at d/c from ED?: No Referrals: Walter Davila MD [Primary Care Provider] - 1-2 days Bernardo Booth MD [STAFF PHYSICIAN] - 1-2 days Time of Disposition: 14:07
[2020-01-14] MEDS ORDERED: ACETAMINOPHEN TAB 500 MG TAB PO STA (12:24)
[2020-01-14 12:38] LABS: Basophils % (A) 0 %; Eosinophils % (A) 1 %; HCT 38.1 % (39.0-53.0); HGB 13.1 gm/dL (13.0-17.5); Lymphocytes # (A) 0.7 k/uL (1.0-4.8); Lymphocytes % (A) 18 %; MCH 30.3 pg (25.0-35.0); MCHC 34.2 g/dL (31.0-37.0); MCV 88.3 fL (80.0-100.0); Mean Platelet Volume 8.6; Monocytes # (A) 0.2 k/uL (0-1.0); Monocytes % (A) 5 %; Neutrophils # (A) 2.9 k/uL (1.3-7.7); Neutrophils % (A) 74 %; Platelet Count 128 k/uL (150-450); RBC 4.32 m/uL (4.30-5.90); RDW 14.7 % (11.5-15.5); WBC 3.9 k/uL (3.8-10.6)
[2020-01-14 12:52] LABS: Partial Thromboplastin Time 26.1 sec (22.0-30.0); Prothrombin Time 10.1 sec (9.0-12.0)
[2020-01-14 13:06] LABS: Albumin 4.3 g/dL (3.5-5.0); C Reactive Protein 65.6 mg/L (<10.0); Calcium 8.5 mg/dL (8.4-10.2); Potassium 4.4 mmol/L (3.5-5.1); Total Protein 7.5 g/dL (6.3-8.2)
--- NOTE | 2020-01-14 13:07 | CT ---
EXAMINATION TYPE: CT abdomen pelvis w con DATE OF EXAM: 01/14/2020 COMPARISON: Chest x-ray 01/14/2020 HISTORY: Right sided abdominal pain CT DLP: 1023.2 mGycm Automated exposure control for dose reduction was used. CONTRAST: CT scan of the abdomen pelvis is performed with IV Contrast, patient injected with 100 mL of Isovue 3 00. FINDINGS- LUNG BASES-subsegmental peripheral infiltrates in the lower lobes could be seen with viral pneumoniti s or pneumonia.. LIVER/GB-liver is diffusely low in attenuation suggestive of hepatic steatosis. Length of the liver m easures 23 cm correlate for hepatomegaly. Early with LFTs for hepatocellular disease or hepatitis. Po stcholecystectomy changes noted. PANCREAS- No gross abnormality is seen. SPLEEN- No gross abnormality is seen. ADRENALS- No gross abnormality is seen. KIDNEYS/BLADDER-no hydronephrosis or nephrolithiasis. There is a simple appearing cyst involving the right kidney measuring 9 Hounsfield units and 2.8 cm.. BOWEL-bowel gas pattern nonspecific. Normal appendix. LYMPH NODES- No greater than 1cm abdominal or pelvic lymph nodes areappreciated. OSSEOUS STRUCTURES-hypertrophic and degenerative change of the spine.. OTHER- there is abdominal aortic aneurysm originating below the renal arteries and extending the aor tic bifurcation and 3 and 5.4 cm in greatest dimension. No dissection identified. No definite extensi on into the iliac vasculature although there is mild ectasia of the right common iliac artery. Diffus e atherosclerotic changes are seen. Appears to be evidence of previous surgery involving the anterior abdominal wall possibly related to previous hernia repair surgery. Prostate is enlarged. IMPRESSION- 1. Peripheral lower lobe infiltrates correlate for pneumonia including atypical or viral pneumonitis such such as covid. 2. Hepatomegaly correlate for hepatocellular disease or hepatic steatosis. 3. There is a 5.4 cm infrarenal aortic aneurysm extending to the aortic bifurcation. Significant sten osis involving the right common iliac artery suspected. 4. Prostate hypertrophy.
--- NOTE | 2020-01-14 13:34 | XR ---
EXAMINATION TYPE: XR chest 1V portable DATE OF EXAM: 01/14/2020 COMPARISON: 01/21/2019 HISTORY: Cough and fever TECHNIQUE: Single frontal view of the chest is obtained. FINDINGS: There is right upper and lower lobe infiltrate with left peripheral infiltrate upper lobe. No pleural effusion or pneumothorax. Limited inspiration. Heart size stable. Atherosclerotic change aorta. IMPRESSION: Bilateral areas of infiltrate correlate for pneumonia.
[2020-01-14 14:46] VITALS: BP 121/86; PULSE 71; RESP 16; TEMP 99.7
== END 2020-01-14 14:45 | disposition home or self-care (01) ==
LOC: EC 11:59
DX: U07.1 COVID-19 (principal); I71.4 Abdominal aortic aneurysm, without rupture; R11.10 Vomiting, unspecified; I10 Essential (primary) hypertension; E78.5 Hyperlipidemia, unspecified; F32.9 Major depressive disorder, single episode, unspecified; Z79.82 Long term (current) use of aspirin; Z79.02 Long term (current) use of antithrombotics/antiplatelets; Z79.899 Other long term (current) drug therapy; Z88.8 Allergy status to other drugs, medicaments and biological substances; Z86.73 Personal history of transient ischemic attack (TIA), and cerebral infarction without residual deficits; Z90.49 Acquired absence of other specified parts of digestive tract
CPT/HCPCS: 36415; 93005; 80053; 82150; 83690; 84484; 85025; 85610; 85730; 86140; 71045; 74177; 99284; 96374; 96375 ×2; 96361 ×2; U0003; J2405; J1170; Q9967

== ENCOUNTER 2020-01-17 18:48 | Inpatient (IN) | payer BC ==
[2020-01-17] MEDS ORDERED: SODIUM CHLORIDE 0.9% 500 ML 500 ML IV STA (19:34)
[2020-01-17 20:14] LABS: Basophils # (A) 0.1 k/uL (0-0.2); Basophils % (A) 1 %; Eosinophils # (A) 0.1 k/uL (0-0.7); Eosinophils % (A) 1 %; HCT 36.6 % (39.0-53.0); HGB 12.7 gm/dL (13.0-17.5); Lymphocytes # (A) 0.7 k/uL (1.0-4.8); Lymphocytes % (A) 11 %; MCH 30.7 pg (25.0-35.0); MCHC 34.8 g/dL (31.0-37.0); Mean Platelet Volume 8.2; Monocytes # (A) 0.2 k/uL (0-1.0); Monocytes % (A) 3 %; Neutrophils # (A) 5.2 k/uL (1.3-7.7); Neutrophils % (A) 83 %; Platelet Count 179 k/uL (150-450); RBC 4.16 m/uL (4.30-5.90); RDW 14.2 % (11.5-15.5); WBC 6.3 k/uL (3.8-10.6)
[2020-01-17 20:27] LABS: Partial Thromboplastin Time 25.2 sec (22.0-30.0); Prothrombin Time 10.4 sec (9.0-12.0)
[2020-01-17 20:31] LABS: Albumin 4.1 g/dL (3.5-5.0); Calcium 8.8 mg/dL (8.4-10.2); Potassium 5.1 mmol/L (3.5-5.1); Total Bilirubin 1.1 mg/dL (0.2-1.3); Total Protein 7.3 g/dL (6.3-8.2)
--- NOTE | 2020-01-17 20:37 | XR ---
EXAMINATION TYPE: XR chest 2V DATE OF EXAM: 01/17/2020 COMPARISON: 01/14/2020. HISTORY: Fever and syncope. TECHNIQUE: Frontal and lateral views of the chest are obtained. FINDINGS: There is slight increase of bilateral moderate, peripheral based opacities in the mid to l ower lungs. No pleural effusion, or pneumothorax seen. The cardiac silhouette size is within normal limits. The osseous structures are intact. IMPRESSION: Increased bilateral moderate opacities.
--- NOTE | 2020-01-17 20:56 | CT ---
EXAMINATION TYPE: CT brain tigistine wo con DATE OF EXAM: 01/17/2020 COMPARISON: 12/29/2018. HISTORY: fall, syncope CT DLP: 1479.3 mGycm Automated exposure control for dose reduction was used. TECHNIQUE: CT scan of the head and cervical spine are performed without contrast. FINDINGS: There is no acute intracranial hemorrhage, mass effect, or midline shift identified. The ventricles and sulci are within normal limits in size. The globes are intact. There is mild mucosal thickening of the bilateral maxillary sinuses. Stable right frontal lobe encephalomalacia. Cervical spine is visualized in its entirety from C1 through upper thoracic levels and demonstrates s atisfactory alignment without evidence of acute fracture or dislocation. Prevertebral soft tissue ap pears within normal limits. The C1-C2 articulation is unremarkable. There is severe C6-C7 spondylos is. Otherwise mild to moderate elsewhere. There is incompletely imaged moderate right and mild left p ulmonary opacities. Incidental small bilateral thyroid nodules seen. IMPRESSION: 1. There is no acute fracture or dislocation evident in the cervical spine. 2. No acute intracranial hemorrhage, mass effect, or midline shift is seen. 3. Incompletely imaged bilateral pulmonary opacities. 4. Chronic findings as above.
[2020-01-17 21:02] LABS: D-Dimer 1.96 mg/L FEU (<0.60)
[2020-01-17 21:05] LABS: Appearance,Urine Clear (Clear); Bilirubin,Urine Negative (Negative); Blood,Urine Negative (Negative); Color,Urine Yellow; Glucose,Urine (UA) Negative (Negative); Ketones,Urine Negative (Negative); Leukocyte Esterase,Urine Negative (Negative); Mucus,Urine Rare /hpf; Nitrite,Urine Negative (Negative); PH, Urine 5.5 (5.0-8.0); Protein,Urine 1+ (Negative); RBC,Urine <1 /hpf (0-5); Specific Gravity,Urine 1.025 (1.001-1.035); Urobilinogen,Urine <2.0 mg/dL (<2.0); WBC,Urine 1 /hpf (0-5)
[2020-01-17] MEDS ORDERED: AZITHROMYCIN 500 MG in SODIUM CHLORIDE 0.9% 250 ML IVPB STA (21:09)
[2020-01-17] MEDS ORDERED: ASPIRIN 81 MG PO STA (21:09)
[2020-01-17] MEDS ORDERED: ENOXAPARIN 80 MG/0.8 ML SYRINGE SQ STA (21:26)
[2020-01-17] MEDS ORDERED: NALOXONE 0.4 MG/ML 1 ML VIAL IV PRN (22:56)
--- NOTE | 2020-01-17 23:00 | ED ---
General Adult HPI - General Chief complaint: Syncope Stated complaint: fever/dry heaves/fell the other day Time Seen by Provider: 01/17/20 19:29 Source: patient, RN notes reviewed, old records reviewed Mode of arrival: ambulatory Limitations: no limitations - History of Present Illness Initial comments: 64-year-old male patient to ED for chief complaint of minimal cough, myalgia right lateral rib pain. Patient reportedly had a syncopal episode yesterday while having a bowel movement and hit his head. Does not believe he was unconscious for a long period of time. Shortness of breath. Presents to ED for further evaluation. Systemic: Pt denies fatigue, fever/chills, rash. Pt denies weakness, night sweats, weight loss. Neuro: Pt denies headache, visual disturbances, pre-syncope. HEENT: Pt denies ocular discharge or irritation, otalgia, rhinorrhea, pharyngitis or notable lymphadenopathy. Cardiopulmonary: Pt denies chest pain, SOB, heart palpitations, dyspnea on exertion. Abdominal/GI: Pt denies abdominal pain, n/v/d. : Pt denies dysuria, burning w/ urination, frequency/urgency. Denies new onset urinary or bowel incontinence. MSK: Pt denies myalgia, loss of strength or function in extremities. Neuro: Pt denies new onset weakness, paresthesias. - Related Data Home Medications Medication Instructions Recorded Confirmed Aspirin 325 mg PO DAILY 04/26/17 01/14/20 Cholecalciferol (Vitamin D3) 2,000 unit PO DAILY 04/26/17 01/14/20 [Vitamin D3] Citalopram Hydrobromide 40 mg PO DAILY 04/26/17 01/14/20 [Citalopram HBr] Clopidogrel [Plavix] 75 mg PO HS 04/26/17 01/14/20 Omeprazole 40 mg PO DAILY 04/26/17 01/14/20 lisinopriL [Zestril] 20 mg PO BID 04/26/17 01/14/20 [place]-3 Fatty Acids/Fish Oil [Fish 1 cap PO DAILY 06/05/18 01/14/20 Oil 1,000 mg Softgel] Atorvastatin Calcium [Lipitor] 10 mg PO HS 01/14/20 01/14/20 Previous Rx's Medication Instructions Recorded Acetaminophen Tab [Tylenol] 650 mg PO Q6HR PRN tab 01/23/19 Ondansetron Odt [Zofran Odt] 4 mg PO Q8HR PRN #10 tab 01/14/20 Allergies Allergy/AdvReac Type Severity Reaction Status Date / Time hydrochlorothiazide Allergy Rash/Hives Verified 01/17/20 19:23 Review of Systems ROS Statement: Those systems with pertinent positive or pertinent negative responses have been documented in the HPI. ROS Other: All systems not noted in ROS Statement are negative. 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", past "stroke" some mild short term memory problems", throat polyps removed pt stated were cancerous, ANEURYSM ("CHEST AREA")- DR WATCHING IT" History of Any Multi-Drug Resistant Organisms: None Reported Past Surgical History: Back Surgery, Cholecystectomy, Heart Catheterization, Hernia Repair Additional Past Surgical History / Comment(s): nancy inguinal hernia repair, throat polpys removed Past Anesthesia/Blood Transfusion Reactions: Previous Problems w/ Anesthesia, Motion Sickness Additional Past Anesthesia/Blood Transfusion Reaction / Comment(s): STATES TAKES LONGER TO WAKE UP" Past Psychological History: Depression Smoking Status: Former smoker Past Alcohol Use History: None Reported Past Drug Use History: None Reported - Past Family History Mother Family Medical History: CVA/TIA Father Family Medical History: CVA/TIA, Myocardial Infarction ([place]) Additional Family Medical History / Comment(s): Father of a [place] while in his 60s or 70s General Exam - General Exam Comments Initial Comments: Constitutional: NAD, AOX3, Pt has pleasant affect. HEENT: NC/AT, trachea midline, neck supple, no lymphadenopathy. Posterior pharynx non erythematous, without exudates. External ears appear normal, without discharge. Mucous membranes moist. Eyes PERRLA, EOM intact. There is no scleral icterus. No pallor noted. Cardiopulmonary: RRR, no murmurs, rubs or gallops, no JVD noted. Lungs CTAB in anterior and posterior quiñones. No peripheral edema. Abdominal exam: Abdomen soft and non-distended. Abdomen non-tender to palpation in all 4 quadrants. Bowel sounds active in LLQ. No hepatosplenomegaly. No ecchymosis Neuro: CN II-XII grossly intact. No nuchal rigidity. No raccon eyes, no marx sign, no hemotympanum. No cervical spinal tenderness. MSK: No posterior calf tenderness bilaterally, homans sign negative bilaterally. Posterior tibialis and radial pulse +2 bilaterally. Sensation intact in upper and lower extremities. Full active ROM in upper and lower extremities, 5/5 stregnth. Limitations: no limitations Course Vital Signs 01/17/20 01/17/20 19:19 20:37 Temperature 99.5 F Pulse Rate 99 90 Respiratory 20 18 Rate Blood Pressure 115/78 123/75 O2 Sat by Pulse 92 L 95 Oximetry Medical Decision Making - Medical Decision Making 64-year-old male patient to ED for chief complaint of minimal cough, myalgia right lateral rib pain. Patient reportedly had a syncopal episode yesterday while having a bowel movement and hit his head. Does not believe he was unconscious for a long period of time. Shortness of breath. Presents to ED for further evaluation. Patient vital signs are stable, afebrile. Physical exam negative for acute pathology. Laboratory investigations revealed creatinine slightly worse than before. D-dimer is elevated. Troponin is negative. Pain C-spine is negative for acute process intracranially within the cervical spine. Chest clear displayed increase bilateral moderate opacities. EKG is nonischemic. Patient administered a dose of Lovenox and sent to a VQ scan. Coronavirus test was found be positive. Patient will be admitted for further evaluation. Case discussed in depth with Dr. Geronimo. - Lab Data Result diagrams: 01/17/20 19:50 01/17/20 19:50 Lab Results 01/17/20 01/17/20 01/17/20 Range/Units 19:50 19:50 19:50 WBC 6.3 (3.8-10.6) k/uL RBC 4.16 L (4.30-5.90) m/uL Hgb 12.7 L (13.0-17.5) gm/dL Hct 36.6 L (39.0-53.0) % MCV 88.0 (80.0-100.0) fL MCH 30.7 (25.0-35.0) pg MCHC 34.8 (31.0-37.0) g/dL RDW 14.2 (11.5-15.5) % Plt Count 179 (150-450) k/uL MPV 8.2 Neutrophils % 83 % Lymphocytes % 11 % Monocytes % 3 % Eosinophils % 1 % Basophils % 1 % Neutrophils # 5.2 (1.3-7.7) k/uL Lymphocytes # 0.7 L (1.0-4.8) k/uL Monocytes # 0.2 (0-1.0) k/uL Eosinophils # 0.1 (0-0.7) k/uL Basophils # 0.1 (0-0.2) k/uL PT 10.4 (9.0-12.0) sec INR 1.0 (<1.2) APTT 25.2 (22.0-30.0) sec D-Dimer 1.96 H (<0.60) mg/L FEU Sodium (137-145) mmol/L Potassium (3.5-5.1) mmol/L Chloride (98-107) mmol/L Carbon Dioxide (22-30) mmol/L Anion Gap mmol/L BUN (9-20) mg/dL Creatinine (0.66-1.25) mg/dL Est GFR (CKD-EPI)AfAm (>60 ml/min/1.73 sqM) Est GFR (CKD-EPI)NonAf (>60 ml/min/1.73 sqM) Glucose (74-99) mg/dL Calcium (8.4-10.2) mg/dL Total Bilirubin (0.2-1.3) mg/dL AST (17-59) U/L ALT (4-49) U/L Alkaline Phosphatase (38-126) U/L Troponin I (0.000-0.034) ng/mL Total Protein (6.3-8.2) g/dL Albumin (3.5-5.0) g/dL Urine Color Yellow Urine Appearance Clear (Clear) Urine pH 5.5 (5.0-8.0) Ur Specific [place] 1.025 (1.001-1.035) Urine Protein 1+ H (Negative) Urine Glucose (UA) Negative (Negative) Urine Ketones Negative (Negative) Urine Blood Negative (Negative) Urine Nitrite Negative (Negative) Urine Bilirubin Negative (Negative) Urine Urobilinogen <2.0 (<2.0) mg/dL Ur Leukocyte Esterase Negative (Negative) Urine RBC <1 (0-5) /hpf Urine WBC 1 (0-5) /hpf Urine Mucus Rare H (None) /hpf Coronavirus (PCR) (Not Detectd) 01/17/20 01/17/20 01/17/20 Range/Units 19:50 19:50 22:04 WBC (3.8-10.6) k/uL RBC (4.30-5.90) m/uL Hgb (13.0-17.5) gm/dL Hct (39.0-53.0) % MCV (80.0-100.0) fL MCH (25.0-35.0) pg MCHC (31.0-37.0) g/dL RDW (11.5-15.5) % Plt Count (150-450) k/uL MPV Neutrophils % % Lymphocytes % % Monocytes % % Eosinophils % % Basophils % % Neutrophils # (1.3-7.7) k/uL Lymphocytes # (1.0-4.8) k/uL Monocytes # (0-1.0) k/uL Eosinophils # (0-0.7) k/uL Basophils # (0-0.2) k/uL PT (9.0-12.0) sec INR (<1.2) APTT (22.0-30.0) sec D-Dimer (<0.60) mg/L FEU Sodium 129 L (137-145) mmol/L Potassium 5.1 (3.5-5.1) mmol/L Chloride 94 L (98-107) mmol/L Carbon Dioxide 26 (22-30) mmol/L Anion Gap 9 mmol/L BUN 30 H (9-20) mg/dL Creatinine 1.56 H (0.66-1.25) mg/dL Est GFR (CKD-EPI)AfAm 54 (>60 ml/min/1.73 sqM) Est GFR (CKD-EPI)NonAf 46 (>60 ml/min/1.73 sqM) Glucose 104 H (74-99) mg/dL Calcium 8.8 (8.4-10.2) mg/dL Total Bilirubin 1.1 (0.2-1.3) mg/dL AST 98 H (17-59) U/L ALT 86 H (4-49) U/L Alkaline Phosphatase 44 (38-126) U/L Troponin I <0.012 (0.000-0.034) ng/mL Total Protein 7.3 (6.3-8.2) g/dL Albumin 4.1 (3.5-5.0) g/dL Urine Color Urine Appearance (Clear) Urine pH (5.0-8.0) Ur Specific [place] (1.001-1.035) Urine Protein (Negative) Urine Glucose (UA) (Negative) Urine Ketones (Negative) Urine Blood (Negative) Urine Nitrite (Negative) Urine Bilirubin (Negative) Urine Urobilinogen (<2.0) mg/dL Ur Leukocyte Esterase (Negative) Urine RBC (0-5) /hpf Urine WBC (0-5) /hpf Urine Mucus (None) /hpf Coronavirus (PCR) Detected A (Not Detectd) - EKG Data -: EKG Interpreted by Me (and Dr. Geronimo ) EKG Comments: Ventricular rate 96, AK interval 146, QT/QTc 366/462, Normal sinus rhythm, normal EKG. no concern for acute ischemia. Disposition Clinical Impression: Syncope, COVID-19, Chest pain Disposition: ADMITTED IP TO THIS HOSP Condition: Serious Is patient prescribed a controlled substance at d/c from ED?: No Referrals: Walter Davila MD [Primary Care Provider] - 1-2 days
--- NOTE | 2020-01-17 23:03 | NM ---
EXAMINATION TYPE: NM pul vent and perfuse DATE OF EXAM: 01/17/2020 COMPARISON: NONE HISTORY: Chest pain short of breath TECHNIQUE: Utilizing inhalation of 62.5 mCi Tc 99m DTPA aerosol and intravenous injection of 5.1 mCi of Tc 99m MAA, ventilation and perfusion images are acquired post injection in multiple projections. FINDINGS: There are small matching very small subsegmental ventilation and perfusion defect at the lung bases p osteriorly. There is no ventilation/perfusion mismatch. There is no segmental type defect. The remain constance of exam is unremarkable.. IMPRESSION: Very small matching defects. This is consistent with mild airway disease. There is low probability of pulmonary embolism.
[2020-01-17] MEDS: SODIUM CHLORIDE 0.9% 1,000 ML IV SCH (23:15)
[2020-01-17] MEDS: ACETAMINOPHEN TAB 325 MG TAB PO PRN (23:25)
[2020-01-18 09:33] LABS: Calcium 8.6 mg/dL (8.4-10.2)
[2020-01-18 09:56] LABS: Potassium 4.4 mmol/L (3.5-5.1)
[2020-01-18] MEDS ORDERED: lisinopriL 20 MG TAB PO SCH (10:00)
--- NOTE | 2020-01-18 10:21 | P.HPIM ---
History of Present Illness Patient was having cough myalgias found to have Covid 19. Patient's symptoms has been going on for 2 weeks patient was coughing and appears to have had a cough syncope. She is found to have acute renal failure and hyponatremia. Clifton gifford denied any significant diarrhea was having nausea. Review of Systems REVIEW OF SYSTEMS: CONSTITUTIONAL: As mentioned in HPI HEENT: No recent visual problems or hearing problems. Denied any sore throat. CARDIOVASCULAR: No chest pain, orthopnea, PND, no palpitations. PULMONARY: No shortness of breath, no cough, no hemoptysis. GASTROINTESTINAL: No diarrhea, no nausea, no vomiting, no abdominal pain. NEUROLOGICAL: No headaches, no weakness, no numbness. HEMATOLOGICAL: Denies any bleeding or petechiae. GENITOURINARY: Denies any burning micturition, frequency, or urgency. MUSCULOSKELETAL/RHEUMATOLOGICAL: Denies any joint pain, swelling, or any muscle pain. ENDOCRINE: Denies any polyuria or polydipsia. The rest of the 14-point review of systems is negative. 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", past "stroke" some mild short term memory problems", throat polyps removed pt stated were cancerous, ANEURYSM ("CHEST AREA")- DR WATCHING IT" History of Any Multi-Drug Resistant Organisms: None Reported Past Surgical History: Back Surgery, Cholecystectomy, Heart Catheterization, Hernia Repair Additional Past Surgical History / Comment(s): nancy inguinal hernia repair, throat polpys removed Past Anesthesia/Blood Transfusion Reactions: Previous Problems w/ Anesthesia, Motion Sickness Additional Past Anesthesia/Blood Transfusion Reaction / Comment(s): STATES TAKES LONGER TO WAKE UP" Past Psychological History: Depression Additional Psychological History / Comment(s): Pt resides with his spouse. He is independent. pt works Smoking Status: Former smoker Past Alcohol Use History: None Reported Additional Past Alcohol Use History / Comment(s): Pt started smoking at age 15 (1970) and quit 1985, smoked 2-3 ppd. Pt stated sometimes i would light one but put it down to do something and never smoked it. Past Drug Use History: None Reported - Past Family History Mother Family Medical History: CVA/TIA Father Family Medical History: CVA/TIA, Myocardial Infarction ([place]) Additional Family Medical History / Comment(s): Father of a [place] while in his 60s or 70s Medications and Allergies Home Medications Medication Instructions Recorded Confirmed Type Aspirin 325 mg PO DAILY 04/26/17 01/18/20 History Cholecalciferol (Vitamin D3) 2,000 unit PO DAILY 04/26/17 01/18/20 History [Vitamin D3] Citalopram Hydrobromide 40 mg PO DAILY 04/26/17 01/18/20 History [Citalopram HBr] Clopidogrel [Plavix] 75 mg PO HS 04/26/17 01/18/20 History Omeprazole 40 mg PO DAILY 04/26/17 01/18/20 History lisinopriL [Zestril] 20 mg PO BID 04/26/17 01/18/20 History [place]-3 Fatty Acids/Fish Oil [Fish 1 cap PO DAILY 06/05/18 01/18/20 History Oil 1,000 mg Softgel] Atorvastatin Calcium [Lipitor] 10 mg PO HS 01/14/20 01/18/20 History Metoprolol Tartrate [Lopressor] 100 mg PO DAILY 01/18/20 01/18/20 History Vascepa 2.4gm 2.4 gm PO DAILY 01/18/20 01/18/20 History Allergies Allergy/AdvReac Type Severity Reaction Status Date / Time hydrochlorothiazide Allergy Rash/Hives Verified 01/18/20 09:37 Physical Exam Vitals: Vital Signs Temp Pulse Pulse Resp BP BP Pulse Ox 01/18/20 08:00 97.1 F L 81 18 129/70 96 01/18/20 04:00 97.7 F 73 18 116/72 95 01/18/20 00:20 84 18 01/18/20 00:06 98.8 F 84 18 106/69 92 L 01/17/20 23:14 100.7 F H 91 18 122/72 94 L 01/17/20 20:37 90 18 123/75 95 01/17/20 19:19 99.5 F 99 20 115/78 92 L Intake and Output 01/17/20 01/18/20 01/18/20 22:59 06:59 14:59 Output Total 700 Balance -700 Output: Urine 700 Other: # Voids 1 Weight 81.647 kg 78.7 kg PHYSICAL EXAMINATION: GENERAL: The patient is alert and oriented x3, not in any acute distress. Well d eveloped, well nourished. HEENT: Pupils are round and equally reacting to light. EOMI. No scleral icterus. No conjunctival pallor. Normocephalic, atraumatic. No pharyngeal erythema. No thyromegaly. CARDIOVASCULAR: S1 and S2 present. No murmurs, rubs, or gallops. PULMONARY: Chest is clear to auscultation, no wheezing or crackles. ABDOMEN: Soft, nontender, nondistended, normoactive bowel sounds. No palpable organomegaly. MUSCULOSKELETAL: No joint swelling or deformity. EXTREMITIES: No cyanosis, clubbing, or pedal edema. NEUROLOGICAL: Gross neurological examination did not reveal any focal deficits. SKIN: No rashes. Results CBC & Chem 7: 01/17/20 19:50 01/18/20 04:58 Labs: Abnormal Lab Results - Last 24 Hours (Table) 01/17/20 01/17/20 01/17/20 Range/Units 19:50 19:50 19:50 RBC 4.16 L (4.30-5.90) m/uL Hgb 12.7 L (13.0-17.5) gm/dL Hct 36.6 L (39.0-53.0) % Lymphocytes # 0.7 L (1.0-4.8) k/uL D-Dimer 1.96 H (<0.60) mg/L FEU Sodium (137-145) mmol/L Chloride (98-107) mmol/L BUN (9-20) mg/dL Creatinine (0.66-1.25) mg/dL Glucose (74-99) mg/dL AST (17-59) U/L ALT (4-49) U/L Urine Protein 1+ H (Negative) Urine Mucus Rare H (None) /hpf Coronavirus (PCR) (Not Detectd) 01/17/20 01/17/20 01/18/20 Range/Units 19:50 22:04 04:58 RBC (4.30-5.90) m/uL Hgb (13.0-17.5) gm/dL Hct (39.0-53.0) % Lymphocytes # (1.0-4.8) k/uL D-Dimer (<0.60) mg/L FEU Sodium 129 L 132 L (137-145) mmol/L Chloride 94 L (98-107) mmol/L BUN 30 H 30 H (9-20) mg/dL Creatinine 1.56 H 1.38 H (0.66-1.25) mg/dL Glucose 104 H 109 H (74-99) mg/dL AST 98 H (17-59) U/L ALT 86 H (4-49) U/L Urine Protein (Negative) Urine Mucus (None) /hpf Coronavirus (PCR) Detected A (Not Detectd) Thrombosis Risk Factor Assmnt - Choose All That Apply Any of the Below Risk Factors Present?: Yes Each Factor Represents 1 point: Age 41-60 years, Obesity (BMI >25) Thrombosis Risk Factor Assessment Total Risk Factor Score: 2 Thrombosis Risk Factor Assessment Level: Low Risk Assessment and Plan Plan: -: Syncope: Secondary to cough and cough induced vasovagal event. No further intervention at this time. -Acute renal failure secondary to infection with cough with 19 patient will be continued on IV fluids, hold off on HENRIK inhibitor -Sepsis and pneumonia secondary to Covid 19. Patient is a bit hypoxic at this time patient was started on Decadron Lovenox infectious disease will be consulted -Rule out pulmonary embolism -Acute hypoxic respiratory failure secondary to Covid 19 infection -Hypovolemic hyponatremia: IV fluids as mentioned above -Hyperlipidemia -Hypertension -Coronary artery disease with cardiac catheterization and patient is presently on aspirin and Plavix along with beta lakshmi and a statin which will be resumed. -DVT prophylaxis with Lovenox
[2020-01-18] MEDS: SODIUM CHLORIDE 0.9% 1,000 ML IV SCH ×2 (11:33→21:27)
--- NOTE | 2020-01-18 12:17 | P.CRDCN ---
History of Present Illness Consult date: 01/18/20 Reason for Consult (text): Chest pain, syncope, COVID-19 Consult reason: sycope, chest pain Chief complaint: Chest pain, syncope, COVID-19 History of present illness: HISTORY OF PRESENT ILLNESS AND PLAN: This is a 64-year-old male with history of hernia repair, hypertension, hyperlipidemia, CVA, nonobstructive CAD by cardiac cath 2016, mild AR and carotid artery stenosis. Patient observed this morning at bedside in good spirits and alert/oriented. Patient presents to emergency room with complaints of syncopal episode while having a bowel movement (pt hit his head), fever, night sweats and cough. Patient tested positive for COVID-19. Currently lying in bed with no acute distress and states he feels much improved with IV hydration. Has no current complaints of cough or generalized discomfort. Patient has no current complaints of chest pain, chest pressure, shortness of breath or palpitations. Patient has no lower extremity edema. Troponins negative 3. Patient continue sinus rhythm with right bundle branch block, heart rate 78. Current fever 100.7. Vital signs stable. 95% on 3 L. Patient follows with Dr. Sanchez in office. Cardiac cath in 2017 shows non-obstructive disease. Most recent echo 01/22/2019 shows preserved EF at 55-60%, mild AR, mild . Has hx of 100% stenosis and right carotid artery. DX of chest 01/17/[address] of head 01/17/20 shows no acute process. VQ scan 01/17/20 negative for PE. Currently on subcutaneous Lovenox. SIGNIFICANT PAST MEDICAL HISTORY: Hernia repair, hypertension, hyperlipidemia, CVA, nonobstructive CAD by cardiac cath 2016, mild AR and carotid artery stenosis. PAST SURGICAL HISTORY: See list. EKG = sinus rhythm, heart rate 78 Troponins negative x 3 SIGNIFICANT LABORATORY VALUES: Hemoglobin 12.7, hematocrit 36.6. D-dimer 1.96. Sodium 129. BUN 30, CR 1.56. Calcium elevated 104. AST/ALT, both elevated. Chest x-ray - 01/17/20 increased bilateral moderate OP cities/ CT of head 01/17/20 = no acute process Most recent echo 01/22/19 = EF 55-60%, mild AR, mild . Most recent cardiac cath = 2017 non-obstructive CAD, no gradient across AV. REVIEW OF SYSTEMS: CONSTITUTIONAL: Denies fever. Denies chills. EYES: Denies blurred vision. Denies blurred vision or vision changes. Denies eye pain. EARS, NOSE, MOUTH & THROAT: Denies headache. Denies sore throat. Denies ear pain Denies hemoptysis. CARDIOVASCULAR: Denies chest pain. Complains of prior shortness of breath. Denies orthopnea. Denies PND. Denies palpitations. RESPIRATORY: Complains of cough and prior shortness of breath. GASTROINTESTINAL: Denies abdominal pain or distention. Denies diarrhea. Denies constipation. Denies nausea. Denies vomiting. MUSCULOSKELETAL: Complaints of fatigue and myalgias. INTEGUMENTARY: Denies pruitis. Denies rash. ENDOCRINE: Complains of fatigue. Denies weight change. Denies polydipsia. Denies polyurina Denies heat/cold intolerance. GENITOURINARY: Denies burning, hematuria or urgency with micturation. HEMATOLOGIC: Denies history of anemia. Denies bleeding. NEUROLOGIC: Denies numbness. Denies tingling. Denies weakness. PSYCHIATRIC: Denies anxiety. Denies depression. PHYSICAL EXAM: GENERAL: Well developed, in no acute distress. HEENT: Head is atraumatic, normocephalic. Pupils are equal, round. Extra ocular movements intact. Mucous membranes moist. Neck supple. No JVD. No carotid bruit. No thyromegaly. LUNGS: Bilateral wheeze, rhonchi to auscultation. No chest wall tenderness on palpation or with deep breathing. HEART: Regular rate and rhythm, no rubs or gallops. S1 and S2 heard. I/ systolic murmur at LSB. ABDOMEN: Abdominal exam, WNL. Bowel sounds x4 quads. Soft, non-tender, without masses, organomegaly, or abdominal aorta enlargement. EXTREMITIES/VASCULAR: Extremities have easily palpable radial, femoral, dorsalis pedis and posterior tibial pulses. No cyanosis, calf tenderness. No BLE edema. NEUROLOGIC: Patient is awake, alert and oriented x3. No focal neurologic abnormalities. FINAL IMPRESSION: 1. Vasovagal syncope 2. COVID 19 infection 3. non-obstructive CAD 4. hypertension 5. hyperlipidemia 6. Carotid artery stenosis 7. Mild AR PLAN: No acute cardiology process. Patient to continue same medical/medication regime, resume home meds. Cardiology to follow on an as-needed basis. FOV in office with Dr. Booth on discharge. Nurse Practitioner note has been reviewed by the Physician. Signing provider agrees with the documented findings, assessment and plan of care. 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", past "stroke" some mild short term memory problems", throat polyps removed pt stated were cancerous, ANEURYSM ("CHEST AREA")- DR WATCHING IT" History of Any Multi-Drug Resistant Organisms: None Reported Past Surgical History: Back Surgery, Cholecystectomy, Heart Catheterization, Hernia Repair Additional Past Surgical History / Comment(s): nancy inguinal hernia repair, throat polpys removed Past Anesthesia/Blood Transfusion Reactions: Previous Problems w/ Anesthesia, Motion Sickness Additional Past Anesthesia/Blood Transfusion Reaction / Comment(s): STATES TAKES LONGER TO WAKE UP" Past Psychological History: Depression Additional Psychological History / Comment(s): Pt resides with his spouse. He is independent. pt works Smoking Status: Former smoker Past Alcohol Use History: None Reported Additional Past Alcohol Use History / Comment(s): Pt started smoking at age 15 (1970) and quit 1985, smoked 2-3 ppd. Pt stated sometimes i would light one but put it down to do something and never smoked it. Past Drug Use History: None Reported - Past Family History Mother Family Medical History: CVA/TIA Father Family Medical History: CVA/TIA, Myocardial Infarction (DC) Additional Family Medical History / Comment(s): Father of a DC while in his 60s or 70s Medications and Allergies Home Medications Medication Instructions Recorded Confirmed Type Aspirin 325 mg PO DAILY 04/26/17 01/18/20 History Cholecalciferol (Vitamin D3) 2,000 unit PO DAILY 04/26/17 01/18/20 History [Vitamin D3] Citalopram Hydrobromide 40 mg PO DAILY 04/26/17 01/18/20 History [Citalopram HBr] Clopidogrel [Plavix] 75 mg PO HS 04/26/17 01/18/20 History Omeprazole 40 mg PO DAILY 04/26/17 01/18/20 History lisinopriL [Zestril] 20 mg PO BID 04/26/17 01/18/20 History [place]-3 Fatty Acids/Fish Oil [Fish 1 cap PO DAILY 06/05/18 01/18/20 History Oil 1,000 mg Softgel] Atorvastatin Calcium [Lipitor] 10 mg PO HS 01/14/20 01/18/20 History Metoprolol Tartrate [Lopressor] 100 mg PO DAILY 01/18/20 01/18/20 History Vascepa 2.4gm 2.4 gm PO DAILY 01/18/20 01/18/20 History Allergies Allergy/AdvReac Type Severity Reaction Status Date / Time hydrochlorothiazide Allergy Rash/Hives Verified 01/18/20 09:37 Physical Exam Vitals: Vital Signs Temp Pulse Pulse Resp BP BP Pulse Ox 01/18/20 08:00 97.1 F L 81 18 129/70 96 01/18/20 04:00 97.7 F 73 18 116/72 95 01/18/20 00:20 84 18 01/18/20 00:06 98.8 F 84 18 106/69 92 L 01/17/20 23:14 100.7 F H 91 18 122/72 94 L 01/17/20 20:37 90 18 123/75 95 01/17/20 19:19 99.5 F 99 20 115/78 92 L Intake and Output 01/17/20 01/18/20 01/18/20 22:59 06:59 14:59 Output Total 700 Balance -700 Output: Urine 700 Other: # Voids 1 Weight 81.647 kg 78.7 kg Results 01/17/20 19:50 01/18/20 04:58 Cardiac Enzymes 01/17/20 01/17/20 01/17/20 Range/Units 19:50 19:50 23:51 AST 98 H (17-59) U/L Troponin I <0.012 <0.012 (0.000-0.034) ng/mL 01/18/20 Range/Units 04:58 AST (17-59) U/L Troponin I <0.012 (0.000-0.034) ng/mL Coagulation 01/17/20 Range/Units 19:50 PT 10.4 (9.0-12.0) sec APTT 25.2 (22.0-30.0) sec CBC 01/17/20 Range/Units 19:50 WBC 6.3 (3.8-10.6) k/uL RBC 4.16 L (4.30-5.90) m/uL Hgb 12.7 L (13.0-17.5) gm/dL Hct 36.6 L (39.0-53.0) % Plt Count 179 (150-450) k/uL Comprehensive Metabolic Panel 01/17/20 01/18/20 Range/Units 19:50 04:58 Sodium 129 L 132 L (137-145) mmol/L Potassium 5.1 4.4 (3.5-5.1) mmol/L Chloride 94 L 101 (98-107) mmol/L Carbon Dioxide 26 23 (22-30) mmol/L BUN 30 H 30 H (9-20) mg/dL Creatinine 1.56 H 1.38 H (0.66-1.25) mg/dL Glucose 104 H 109 H (74-99) mg/dL Calcium 8.8 8.6 (8.4-10.2) mg/dL AST 98 H (17-59) U/L ALT 86 H (4-49) U/L Alkaline Phosphatase 44 (38-126) U/L Total Protein 7.3 (6.3-8.2) g/dL Albumin 4.1 (3.5-5.0) g/dL Current Medications Generic Name Dose Route Start Last Admin Trade Name Freq PRN Reason Stop Dose Admin Acetaminophen 650 mg 01/17/20 22:56 01/17/20 23:25 Acetaminophen Tab 325 Mg Tab PO 650 mg Q6HR PRN Administration Mild Pain or Fever > 100.5 Aspirin 81 mg 01/19/20 09:00 Aspirin 81 Mg PO DAILY [facility] Atorvastatin Calcium 10 mg 01/18/20 21:00 Atorvastatin 10 Mg Tab PO HS [facility] Citalopram Hydrobromide 40 mg 01/19/20 09:00 Citalopram Hydrobromide 20 Mg Tab PO DAILY [facility] Clopidogrel Bisulfate 75 mg 01/18/20 21:00 Clopidogrel 75 Mg Tab PO HS [facility] Dexamethasone 6 mg 01/19/20 09:00 Dexamethasone 2 Mg Tab PO 01/29/20 09:01 DAILY [facility] Enoxaparin Sodium 40 mg 01/19/20 09:00 Enoxaparin 40 Mg/0.4 Ml Syringe SQ Q24HR [facility] Sodium Chloride 1,000 mls @ 75 mls/hr 01/17/20 21:30 01/18/20 11:33 Saline 0.9% IV 75 mls/hr .[id number] JUNAID Administration Metoprolol Tartrate 100 mg 01/19/20 09:00 Metoprolol Tartrate 50 Mg Tab PO DAILY [facility] Naloxone HCl 0.2 mg 01/17/20 22:56 Naloxone 0.4 Mg/Ml 1 Ml Vial IV Q2M PRN Opioid Reversal Pantoprazole Sodium 40 mg 01/19/20 07:30 Pantoprazole 40 Mg Tablet PO [id number] JUNAID Intake and Output 01/17/20 01/18/20 01/18/20 22:59 06:59 14:59 Output Total 700 Balance -700 Output: Urine 700 Other: # Voids 1 Weight 81.647 kg 78.7 kg 01/17/20 19:50 01/18/20 04:58 - EKG Interpretation EKG: sinus rhythm EKG Interpretations (text) Sinus Rhythm.
[2020-01-18] MEDS: CITALOPRAM HYDROBROMIDE 20 MG TAB PO SCH (14:53)
[2020-01-18] MEDS: METOPROLOL TARTRATE 50 MG TAB PO SCH (14:53)
[2020-01-18] MEDS: ACETAMINOPHEN TAB 325 MG TAB PO PRN (14:53)
[2020-01-18] MEDS ORDERED: ATORVASTATIN 10 MG TAB PO SCH (21:00)
[2020-01-18] MEDS ORDERED: METOPROLOL TARTRATE 50 MG TAB PO SCH (21:00)
[2020-01-18] MEDS ORDERED: CLOPIDOGREL 75 MG TAB PO SCH (21:00)
[2020-01-19] MEDS ORDERED: PANTOPRAZOLE 40 MG TABLET PO SCH (07:30)
[2020-01-19] MEDS: METOPROLOL TARTRATE 50 MG TAB PO SCH (07:45)
[2020-01-19] MEDS: CITALOPRAM HYDROBROMIDE 20 MG TAB PO SCH (07:45)
[2020-01-19 07:50] LABS: Basophils % (A) 1 %; Eosinophils # (A) 0.1 k/uL (0-0.7); Eosinophils % (A) 3 %; HCT 36.9 % (39.0-53.0); Lymphocytes # (A) 0.9 k/uL (1.0-4.8); Lymphocytes % (A) 21 %; MCH 29.9 pg (25.0-35.0); MCHC 32.5 g/dL (31.0-37.0); MCV 92.1 fL (80.0-100.0); Mean Platelet Volume 8.1; Monocytes # (A) 0.1 k/uL (0-1.0); Monocytes % (A) 3 %; Neutrophils # (A) 3.1 k/uL (1.3-7.7); Neutrophils % (A) 71 %; Platelet Count 230 k/uL (150-450); RBC 4.01 m/uL (4.30-5.90); RDW 14.6 % (11.5-15.5); WBC 4.3 k/uL (3.8-10.6)
[2020-01-19 08:04] LABS: Albumin 3.7 g/dL (3.5-5.0); Calcium 8.3 mg/dL (8.4-10.2); Potassium 4.7 mmol/L (3.5-5.1); Total Protein 6.8 g/dL (6.3-8.2)
[2020-01-19 08:21] VITALS: BP 148/77; PULSE 72; RESP 18; TEMP 97.3
[2020-01-19] MEDS ORDERED: ENOXAPARIN 40 MG/0.4 ML SYRINGE SQ SCH (09:00)
[2020-01-19] MEDS ORDERED: ASPIRIN 81 MG PO SCH (09:00)
[2020-01-19] MEDS ORDERED: CITALOPRAM HYDROBROMIDE 20 MG TAB PO SCH (09:00)
[2020-01-19] MEDS ORDERED: ASPIRIN 325 MG TAB PO SCH (09:00)
[2020-01-19] MEDS ORDERED: METOPROLOL TARTRATE 50 MG TAB PO SCH (09:00)
[2020-01-19] MEDS ORDERED: dexAMETHasone 2 MG TAB PO SCH (09:00)
--- NOTE | 2020-01-19 12:16 | P.DS ---
Providers Date of admission: 01/17/20 22:35 Attending physician: Amie Casey Consults: 01/17/20 22:56 Consult Physician Stat Consulting Provider: Bernardo Booth Consult Reason/Comments: chest pain, syncope, covid, Do you want consulting provider notified?: Yes, Notify in am Primary care physician: Walter Davila [facility] Course: Patient was having cough myalgias found to have Covid 19. Patient's symptoms has been going on for 2 weeks patient was coughing and appears to have had a cough syncope. She is found to have acute renal failure and hyponatremia. Patient denied any significant diarrhea was having nausea. 01/19/2020 Patient is not hypoxic patient is clinically doing well presently doesn't have much symptoms. Patient will be discharged today. Serum creatinine improved to 1 PHYSICAL EXAMINATION: GENERAL: The patient is alert and oriented x3, not in any acute distress. Well developed, well nourished. HEENT: Pupils are round and equally reacting to light. EOMI. No scleral icterus. No conjunctival pallor. Normocephalic, atraumatic. No pharyngeal erythema. No thyromegaly. CARDIOVASCULAR: S1 and S2 present. No murmurs, rubs, or gallops. PULMONARY: Chest is clear to auscultation, no wheezing or crackles. ABDOMEN: Soft, nontender, nondistended, normoactive bowel sounds. No palpable organomegaly. MUSCULOSKELETAL: No joint swelling or deformity. EXTREMITIES: No cyanosis, clubbing, or pedal edema. NEUROLOGICAL: Gross neurological examination did not reveal any focal deficits. SKIN: No rashes. Assessment and Plan Plan: -: Syncope: Secondary to cough and cough induced vasovagal event. No further intervention at this time. -Acute renal failure secondary to infection with cough with 19 improved with IV fluids and HENRIK inhibitor was reinitiated at a low dose -Sepsis and pneumonia secondary to Covid 19 patient was hypoxic yesterday. That improved today wanted to go home will be discharged today patient is not requiring any oxygen -Rule out pulmonary embolism -Acute hypoxic respiratory failure secondary to Covid 19 infection -Hypovolemic hyponatremia: Improved -Hyperlipidemia -Hypertension -Coronary artery disease with cardiac catheterization and patient is presently on aspirin and Plavix along with beta lakshmi and a statin which will be resumed. -DVT prophylaxis with Lovenox Patient Condition at Discharge: Serious Plan - Discharge Summary Discharge Rx Participant: No New Discharge Prescriptions: New dexAMETHasone [Hexadrol] 6 mg PO DAILY #6 tab Continue Citalopram Hydrobromide [Citalopram HBr] 40 mg PO DAILY Cholecalciferol (Vitamin D3) [Vitamin D3] 2,000 unit PO DAILY Omeprazole 40 mg PO DAILY Clopidogrel [Plavix] 75 mg PO HS Aspirin 325 mg PO DAILY [place]-3 Fatty Acids/Fish Oil [Fish Oil 1,000 mg Softgel] 1 cap PO DAILY Atorvastatin Calcium [Lipitor] 10 mg PO HS Vascepa 2.4gm 2.4 gm PO DAILY Metoprolol Tartrate [Lopressor] 100 mg PO DAILY Changed lisinopriL [Zestril] 20 mg PO DAILY #0 Discharge Medication List Aspirin 325 mg PO DAILY 04/26/17 [History] Cholecalciferol (Vitamin D3) [Vitamin D3] 2,000 unit PO DAILY 04/26/17 [History] Citalopram Hydrobromide [Citalopram HBr] 40 mg PO DAILY 04/26/17 [History] Clopidogrel [Plavix] 75 mg PO HS 04/26/17 [History] Omeprazole 40 mg PO DAILY 04/26/17 [History] [place]-3 Fatty Acids/Fish Oil [Fish Oil 1,000 mg Softgel] 1 cap PO DAILY 06/05/18 [History] Atorvastatin Calcium [Lipitor] 10 mg PO HS 01/14/20 [History] Metoprolol Tartrate [Lopressor] 100 mg PO DAILY 01/18/20 [History] Vascepa 2.4gm 2.4 gm PO DAILY 01/18/20 [History] dexAMETHasone [Hexadrol] 6 mg PO DAILY #6 tab 01/19/20 [Rx] lisinopriL [Zestril] 20 mg PO DAILY #0 01/19/20 [Rx] Follow up Appointment(s)/Referral(s): Walter Davila MD [Primary Care Provider] - 3 Days
== END 2020-01-19 13:34 | disposition home or self-care (01) | DRG 871 ==
LOC: EC 18:48 → 3SCARD 22:35
PROVIDERS: ADMIT Hospitalist; ATTEND Hospitalist
DX: A41.89 Other specified sepsis (principal); U07.1 COVID-19; J96.01 Acute respiratory failure with hypoxia; J12.89 Other viral pneumonia; E87.1 Hypo-osmolality and hyponatremia; N17.9 Acute kidney failure, unspecified; F32.9 Major depressive disorder, single episode, unspecified; E86.1 Hypovolemia; E78.5 Hyperlipidemia, unspecified; I10 Essential (primary) hypertension; I25.10 Atherosclerotic heart disease of native coronary artery without angina pectoris; I45.10 Unspecified right bundle-branch block; I65.29 Occlusion and stenosis of unspecified carotid artery; Z79.82 Long term (current) use of aspirin; Z79.899 Other long term (current) drug therapy; Z82.49 Family history of ischemic heart disease and other diseases of the circulatory system; Z86.73 Personal history of transient ischemic attack (TIA), and cerebral infarction without residual deficits; Z87.891 Personal history of nicotine dependence; Z88.8 Allergy status to other drugs, medicaments and biological substances; Z90.49 Acquired absence of other specified parts of digestive tract; Z98.890 Other specified postprocedural states
CPT/HCPCS: 36415; 70450; 71046; 72125; 78582; 80048; 80053; 81001; 84484; 85025; 85379; 85610; 85730; 87040; 87635; 93005; 96360; 96361; 96372; 99285

== ENCOUNTER → 2020-04-20 | Outpatient (CLI) | payer BC ==
[2020-04-20 16:09] LABS: HGB 13.3 gm/dL (13.0-17.5); MCHC 33.2 g/dL (31.0-37.0); MCV 90.2 fL (80.0-100.0); Mean Platelet Volume 8.4; Platelet Count 163 k/uL (150-450); RBC 4.44 m/uL (4.30-5.90); RDW 14.8 % (11.5-15.5); WBC 6.1 k/uL (3.8-10.6)
[2020-04-20 16:19] LABS: Potassium 4.5 mmol/L (3.5-5.1)
== END | disposition home or self-care (01) ==
LOC: LABPAT 15:34
PROVIDERS: ATTEND Internal Medicine Interventional Cardiology
DX: Z01.818 Encounter for other preprocedural examination (principal); I71.1 Thoracic aortic aneurysm, ruptured
CPT/HCPCS: 36415; 80051; 82565; 84520; 85027

== ENCOUNTER 2020-05-01 05:58 | Inpatient (IN) | payer BC ==
[2020-04-30 09:00] VITALS: BMI 31.8
[~2020-05-01 05:58] MED LIST changes: +DEXAMETHASONE SOD PHOSPHATE 4 MG/ML 1 ML VIAL IV ONE; -LACTATED RINGERS 1,000 ML IV SCH; -LIDOCAINE 1% 20 ML VIAL (10MG/ML) FOR IV START INTRADERMA PRN; +MIDAZOLAM 2 MG/2 ML VIAL IV PRN; +ONDANSETRON 4 MG/2 ML VIAL IVP ONE; +SODIUM CHLORIDE 0.9% 1,000 ML IV SCH; +SODIUM CHLORIDE 0.9% 1,000 ML in EMPTY BAG 1 BAG IV ONE
[2020-05-01] MEDS ORDERED: HYDROmorphone 0.5 MG/0.5 ML SYRINGE IVP PRN (07:00)
[2020-05-01] MEDS ORDERED: fentaNYL (PF) 50 MCG/ML 2 ML AMP ONE (07:16)
[2020-05-01] MEDS ORDERED: PROPOFOL 10 MG/ML 20 ML VIAL IV ONE (07:16)
[2020-05-01] MEDS ORDERED: MIDAZOLAM 2 MG/2 ML VIAL ONE (07:16)
[2020-05-01] MEDS ORDERED: HEPARIN SODIUM,PORCINE 10,000 UNIT/ML 1 ML VIAL ONE (07:16)
[2020-05-01] MEDS ORDERED: NEOSTIGMINE 1 MG/ML 10 ML VIAL ONE (07:16)
[2020-05-01] MEDS ORDERED: PHENYLEPHRINE-0.9% NACL SYG 1,000 MCG/10 ML SYRINGE ONE (07:16)
[2020-05-01] MEDS ORDERED: LIDOCAINE 1% INJ 10MG/ML (20 ML MDV) ONE ×2 (07:16→07:21)
[2020-05-01] MEDS ORDERED: ROCURONIUM 10 MG/ML (5 ML VIAL) IV ONE (07:16)
[2020-05-01] MEDS ORDERED: SUCCINYLCHOLINE CHLORIDE 100 MG/5 ML SYR IV ONE (07:16)
[2020-05-01] MEDS ORDERED: GLYCOPYRROLATE 0.2 MG/ML 2 ML VIAL ONE (07:16)
[2020-05-01] MEDS ORDERED: SODIUM CHLORIDE 0.9% 1,000 ML IV ONE (07:20)
[2020-05-01] MEDS ORDERED: LIDOCAINE 1% INJ 10MG/ML (20 ML MDV) SQ ONE (07:45)
[2020-05-01] MEDS ORDERED: IOPAMIDOL-250 50ML BTL INTRAARTER ONE (09:08)
[2020-05-01] MEDS ORDERED: IOPAMIDOL-250 100ML BTL INTRAARTER ONE (09:08)
--- NOTE | 2020-05-01 10:16 | P.OP ---
Description of Procedure: Date: 05/01/2020 Preoperative diagnosis: Asymptomatic Infrarenal 5.5 cm AAA Postoperative diagnosis: Same Procedure: 1. Percutaneous Endovascular aortic repair with [place] device. 2. Ultrasound-guided bilateral common femoral artery access 3. Percutaneous transluminal balloon angioplasty of the common femoral artery 4. Selective left femoral angiogram Bioinformatics Team Member: Luis Hunt DO Secondary grapple operator: Bernardo Booth MD Anesthesia: General Estimated blood loss: 20 mL Complications: None Condition: Stable Disposition: Palpable PT pulse on the right, multiphasic DP and PT signal on the left Indications: 64-year-old gentleman with history of coronary artery disease, known right carotid artery occlusion and aortic stenosis was found to have a 5.5 cm aneurysm which had increased over the last several months. He underwent CT angiogram of the abdomen and pelvis which demonstrated a long neck which was amenable to endovascular aortic repair. He presents today for such repair. Operative narrative: After written and informed consent was obtained from the patient all risks benefits and complications were described the patient was brought to the Public Address System Installer and laid in a supine position. The area of the groins were prepped and draped in usual sterile fashion after appropriate anesthetic was performed per the anesthesiologist. A timeout was performed in normal fashion and antibiotics were administered prior to incisions. Utilizing ultrasound bilateral common femoral arteries were visualized demonstrating patency with minimal calcification noted on the right with severe calcification and stenosis noted on the left. Under ultrasound guidance utilizing a multipurpose needle bilateral common femoral arteries were accessed and guidewire was placed followed by deployment of 2 Perclose closure devices for each femoral artery. The left femoral artery was difficult to place the Perclose device and 4 devices were utilized due to 2 of them not taking. Utilizing Seldinger technique and 8-Japanese sheath was then placed and patient was administered heparin and followed with ACTs. 035 Glidewire was then placed up the and right femoral sheath and exchanged for a Lunderquist wire through an angled glide catheter. The left femoral artery was then utilized and guidewire was placed followed by pigtail catheter and aortogram was obtained. Utilizing the Lunderquist wire a 23 mm main body device was then loaded over the guidewire after the 8-Japanese sheath was removed. Delivery system was then placed 1 cm proximal to the intended landing site and the aortic body was oriented for appropriate access for the contralateral limb. Delivery system was then retracted out of the sheath and the aortic body radiopaque markers were verified to be in the correct position. First segment of the graft was then deployed in normal fashion by releasing and pulling the knob in normal fashion. Balloon injection port was then inflated utilizing a 4-1 saline contrast mixture in order to open the mid crown. Balloon was then deflated. Precise positioning was then performed with utilizing the radiopaque markers and parallax was removed and our to land at the renal arteries. Pigtail catheter was then retracted away from the proximal stent and the proximal stent was released in normal fashion. Polymer was then utilized and filled through the polymer port which was visualized under fluoroscopy. The stiff Lunderquist wire was then retracted within the ipsilateral limb. Attention was then placed to accessing the contralateral limb. Utilizing the Glidewire and angled glide catheter the contralateral limb was accessed and pigtail catheter was placed. Pigtail catheter was then spun to verify intragraft cannulation. A stiff wire was then placed within the pigtail catheter and retrograde angiogram was obtained demonstrating the internal iliac artery takeoff. Measurements were obtained and a 16 x 140 mm Ovation limb was chosen to be deployed and deployed in normal fashion. Once completed the aortic main body was completely deployed in normal fashion. Utilizing the balloon balloon angioplasty was performed at the ring to further mold the polymer to the aortic neck. Once completed the aortic body deployment sheath was removed in normal fashion. Pigtail catheter was then p laced over the Lunderquist wire and retrograde angiogram was obtained with measurements to the internal iliac artery on the ipsilateral limb. A 16 x 120 mm Ovation limb was chosen and deployed in normal fashion. Once completed two 12 x 40mm balloons were placed up each iliac limb and balloon angioplasty was performed through its entirety. Once completed balloons were removed and pigtail catheter was placed above the graft and final angiogram was obtained demonstrating exclusion of the aneurysm with small 1B endoleak noted and therefore utilizing the Q 50 balloon another balloon angioplasty within the stent was performed and repeat angiogram demonstrated no evidence of endoleak's. All guidewires and catheters were then removed and the Perclose closure devices were closed in normal fashion. Blood flow was assessed in the lower extremities demonstrating palpable pulse in the right DP and PT but diminished flow noted in the left. Due to this ultrasound was utilized demonstrating minimal flow across the existing previous lesion therefore retrograde access of the SFA utilizing ultrasound was obtained with a micro-access needle and the lesion was crossed. A 5-Japanese sheath was then placed and retrograde angiogram was obtained demonstrating severe stenosis approximately 90% at the common femoral artery. 035 Glidewire was placed and followed by a 5x40mm which improved slightly and therefore a 7 x 20 mm balloon was then utilized demonstrating marked improvement of the stenosis with good brisk flow distal. A 5-Japanese sheath was then removed and pressure was placed for hemostasis. The areas were then cleansed and dressings were placed. The patient tolerated procedure well and had palpable pulses on the right and multiphasic signal noted on the left DP and PT and was sent to PACU for recovery.
[2020-05-01] MEDS: LACTATED RINGERS 1,000 ML IV SCH (12:02)
[2020-05-01 12:29] LABS: Calcium 8.2 mg/dL (8.4-10.2); Potassium 5.2 mmol/L (3.5-5.1)
[2020-05-01 12:31] LABS: Glucose,Whole Blood 108 mg/dL (75-99)
[2020-05-01] MEDS: SODIUM CHLORIDE 0.9% 1,000 ML IV SCH (12:37)
--- NOTE | 2020-05-01 12:55 | IR ---
EXAMINATION TYPE: IR precinct captain aorta DATE OF EXAM: 05/01/2020 COMPARISON: NONE HISTORY: Aortic aneurysm Fluoroscopy support supplied to the referring clinician. See dictated report from cardiology, 25.5 m inutes fluoroscopy time, 886 intraoperative C-arm images document the procedure
[2020-05-01 13:03] LABS: Basophils % (A) 0 %; Eosinophils # (A) 0.2 k/uL (0-0.7); Eosinophils % (A) 2 %; HCT 35.2 % (39.0-53.0); HGB 12.2 gm/dL (13.0-17.5); Lymphocytes % (A) 12 %; MCH 31.6 pg (25.0-35.0); MCHC 34.8 g/dL (31.0-37.0); MCV 90.9 fL (80.0-100.0); Mean Platelet Volume 8.7; Monocytes # (A) 0.5 k/uL (0-1.0); Monocytes % (A) 6 %; Neutrophils # (A) 6.5 k/uL (1.3-7.7); Neutrophils % (A) 79 %; Platelet Count 126 k/uL (150-450); RBC 3.87 m/uL (4.30-5.90); RDW 14.4 % (11.5-15.5); WBC 8.2 k/uL (3.8-10.6)
[2020-05-01] MEDS ORDERED: METOPROLOL TARTRATE 50 MG TAB PO STA (17:55)
[2020-05-01] MEDS: lisinopriL 20 MG TAB PO SCH (18:02)
[2020-05-01] MEDS ORDERED: CLOPIDOGREL 75 MG TAB PO SCH (21:00)
[2020-05-01] MEDS ORDERED: ATORVASTATIN 10 MG TAB PO SCH (21:00)
[2020-05-02] MEDS: SODIUM CHLORIDE 0.9% 1,000 ML IV SCH (04:21)
[2020-05-02] MEDS: LACTATED RINGERS 1,000 ML IV SCH (04:21)
[2020-05-02 04:24] LABS: HCT 34.1 % (39.0-53.0); HGB 11.4 gm/dL (13.0-17.5); MCH 30.3 pg (25.0-35.0); MCHC 33.4 g/dL (31.0-37.0); MCV 90.5 fL (80.0-100.0); Mean Platelet Volume 8.5; Platelet Count 130 k/uL (150-450); RBC 3.77 m/uL (4.30-5.90); RDW 14.8 % (11.5-15.5); WBC 8.1 k/uL (3.8-10.6)
[2020-05-02 05:37] LABS: Calcium 8.6 mg/dL (8.4-10.2); Potassium 4.5 mmol/L (3.5-5.1)
[2020-05-02] MEDS: lisinopriL 20 MG TAB PO SCH (08:03)
[2020-05-02] MEDS ORDERED: METOPROLOL TARTRATE 50 MG TAB PO SCH (09:00)
[2020-05-02] MEDS ORDERED: ASPIRIN 325 MG TAB PO SCH (09:00)
[2020-05-02] MEDS ORDERED: CHOLECALCIFEROL 25 MCG (1000 IU) TABLET PO SCH (09:00)
[2020-05-02] MEDS ORDERED: NON FORMULARY DRUG (Omega-3 Fatty Acids/Fish Oil [Fish Oil 1,000 Mg Softgel] 1 EACH Capsul PO SCH (09:00)
[2020-05-02] MEDS ORDERED: ICOSAPENT ETHYL 0.5 GM PO SCH (09:00)
[2020-05-02] MEDS ORDERED: CITALOPRAM HYDROBROMIDE 20 MG TAB PO SCH (09:00)
[2020-05-02] MEDS ORDERED: PANTOPRAZOLE 40 MG TABLET PO SCH (09:00)
[2020-05-02 09:35] VITALS: BP 121/75; PULSE 83; RESP 16; TEMP 98.2
--- NOTE | 2020-05-02 10:00 | DS ---
DISCHARGE SUMMARY DATE OF ADMISSION: 05/01/2020 DATE OF DISCHARGE: 05/02/2020 BRIEF HISTORY: This is a 65-year-old gentleman who was diagnosed recently with enlarging infrarenal abdominal aortic aneurysm. He underwent yesterday successful percutaneous repair of infrarenal abdominal aortic aneurysm using the Ovation device. The procedure was complicated by acute vessel closure of the left common femoral artery which was opened using balloon angioplasty without stenting with good angiographic results. The patient was seen this morning. Both groins are soft and nontender without any bruises. He is going to be discharged home on the following medication. 1. Aspirin 325 mg p.o. daily. 2. Atorvastatin 10 mg p.o. q.h.s. 3. Metoprolol 100 mg p.o. b.i.d. 4. Omeprazole 40 mg p.o. daily. 5. Plavix 75 mg p.o. daily. 6. Vascepa 0.5 gram p.o. daily. 7. Lisinopril 20 mg p.o. daily. The patient is going to be seen in the office next week. We will do surveillance CTA regarding the aneurysm. MMODL / IJN: [id number] /
== END 2020-05-02 11:07 | disposition home or self-care (01) | DRG 254 ==
LOC: 2ORMAIN 05:58 → 2SICU 10:20
PROVIDERS: ADMIT Internal Medicine Interventional Cardiology; ATTEND Internal Medicine Interventional Cardiology
PROC: 04Q Lower Arteries, Repair (ICD-10-PCS; 2020-05-01)
PROC: B41D1ZZ Fluoroscopy of Aorta and Bilateral Lower Extremity Arteries using Low Osmolar Contrast (ICD-10-PCS; 2020-05-01)
PROC: 047L3ZZ Dilation of Left Femoral Artery, Percutaneous Approach (ICD-10-PCS; principal; 2020-05-01 07:30)
DX: I71.4 Abdominal aortic aneurysm, without rupture (principal); I25.10 Atherosclerotic heart disease of native coronary artery without angina pectoris; I10 Essential (primary) hypertension; I35.0 Nonrheumatic aortic (valve) stenosis; E78.5 Hyperlipidemia, unspecified; F17.200 Nicotine dependence, unspecified, uncomplicated
CPT/HCPCS: 34705; 80048; 85025; 85027; 86850; 86900; 86901

== ENCOUNTER 2020-12-23 14:15 | Emergency (ER) | payer BC ==
[2020-12-23 14:21] VITALS: BP 131/89; PULSE 94; RESP 20; TEMP 98.8
== END 2020-12-23 19:00 | disposition left against medical advice (07) ==
LOC: EC 14:15
DX: Z20.822 Contact with and (suspected) exposure to COVID-19 (principal); Z53.21 Procedure and treatment not carried out due to patient leaving prior to being seen by health care provider
CPT/HCPCS: 87635; 99499

== ENCOUNTER 2020-12-28 12:03 | Observation (INO) | payer BC ==
[2020-12-28] MEDS ORDERED: MORPHINE SULFATE 4 MG/ML SYRINGE IVP STA (13:53)
[2020-12-28 14:23] LABS: Basophils % (A) 0 %; Eosinophils # (A) 0.5 k/uL (0-0.7); Eosinophils % (A) 8 %; HCT 34.7 % (39.0-53.0); HGB 11.5 gm/dL (13.0-17.5); Lymphocytes # (A) 1.5 k/uL (1.0-4.8); Lymphocytes % (A) 22 %; MCH 30.6 pg (25.0-35.0); MCHC 33.2 g/dL (31.0-37.0); MCV 92.1 fL (80.0-100.0); Monocytes # (A) 0.5 k/uL (0-1.0); Monocytes % (A) 7 %; Neutrophils # (A) 4.4 k/uL (1.3-7.7); Neutrophils % (A) 62 %; Platelet Count 219 k/uL (150-450); RBC 3.77 m/uL (4.30-5.90); RDW 14.3 % (11.5-15.5); WBC 7.1 k/uL (3.8-10.6)
[2020-12-28 14:42] LABS: INR 0.9 (<1.2)
[2020-12-28 14:43] LABS: Partial Thromboplastin Time 23.2 sec (22.0-30.0)
[2020-12-28 14:45] LABS: Albumin 4.7 g/dL (3.5-5.0); Calcium 9.6 mg/dL (8.4-10.2); Total Bilirubin 0.7 mg/dL (0.2-1.3); Total Protein 7.7 g/dL (6.3-8.2)
[2020-12-28] MEDS ORDERED: SODIUM CHLORIDE 0.9% 1,000 ML IV STA (14:51)
[2020-12-28 15:18] LABS: Appearance,Urine Clear (Clear); Bilirubin,Urine Negative (Negative); Blood,Urine Negative (Negative); Color,Urine Yellow; Glucose,Urine (UA) Negative (Negative); Ketones,Urine Negative (Negative); Leukocyte Esterase,Urine Negative (Negative); Nitrite,Urine Negative (Negative); PH, Urine 5.5 (5.0-8.0); Protein,Urine Negative (Negative); Specific Gravity,Urine 1.019 (1.001-1.035); Urobilinogen,Urine <2.0 mg/dL (<2.0)
--- NOTE | 2020-12-28 15:24 | ED ---
General Adult HPI - General Source: patient, RN notes reviewed, old records reviewed Mode of arrival: ambulatory Limitations: no limitations <Donald Nunez - Last Filed: 12/29/20 11:19> <Мария Braxton - Last Filed: 01/03/21 14:48> - General Chief complaint: Abdominal Pain Stated complaint: ABD Pain Time Seen by Provider: 12/28/20 13:22 - History of Present Illness Initial comments: I evaluated the patient when he was placed in a room. Patient is a 65-year-old male with past medical history remarkable for cancer, CVA, hypertension, hyperlipidemia, AAA repair earlier this year who is on Plavix and aspirin presents emergency Department complaining of bruising over his abdomen over the last 3 days. Has noticed worsening abdominal bruising. Over the last 3 days. He endorses pain at the site of bruising. Denies any trauma, denies any other blood thinners. Denies any urinary complaints, nausea, vomiting, diarrhea. Denies any abdominal pain otherwise. His no chest pain or shortness of breath. Has been dealing with what he describes as an "cold" and has been tested for COVID-19 2 days ago and was negative. He states that the bruising is worse with coughing. This slowly got endorses which is why he presents as a primary for further evaluation. Denies any testicular pain, scrotal pain, urinary complaints or penile discharge. His no other acute complaints at this time. He was not vaccinated for Covid. (Donald Nunez) - Related Data Home Medications Medication Instructions Recorded Confirmed Aspirin 325 mg PO DAILY 04/26/17 12/28/20 Cholecalciferol (Vitamin D3) 2,000 unit PO DAILY 04/26/17 12/28/20 [Vitamin D3] Citalopram Hydrobromide 40 mg PO DAILY 04/26/17 12/28/20 [Citalopram HBr] Clopidogrel [Plavix] 75 mg PO DAILY 04/26/17 12/28/20 Omeprazole 40 mg PO DAILY 04/26/17 12/28/20 Atorvastatin Calcium [Lipitor] 10 mg PO HS 01/14/20 12/28/20 Icosapent Ethyl [Vascepa] 2 gm PO DAILY #0 01/18/20 12/28/20 Metoprolol Tartrate [Lopressor] 100 mg PO DAILY 01/18/20 12/28/20 lisinopriL [Zestril] 20 mg PO BID 04/29/20 12/28/20 Furosemide [Lasix] 20 mg PO DAILY PRN 12/28/20 12/28/20 Hydrochlorothiazide 12.5 mg PO HS 12/28/20 12/28/20 [hydroCHLOROthiazide] hydrOXYzine pamoate [hydrOXYzine 25 mg PO QID PRN 12/28/20 12/28/20 PAMOATE] Previous Rx's Medication Instructions Recorded HYDROcodone/APAP 5-325MG [[place] 1 tab PO Q6HR PRN 3 Days #12 tab 12/29/20 5-325] Allergies Allergy/AdvReac Type Severity Reaction Status Date / Time hydrochlorothiazide AdvReac Itching Verified 12/28/20 16:51 Review of Systems ROS Other: All systems not noted in ROS Statement are negative. <Donald Nunez - Last Filed: 12/29/20 11:19> ROS Other: All systems not noted in ROS Statement are negative. <Мария Braxton - Last Filed: 01/03/21 14:48> ROS Statement: Those systems with pertinent positive or pertinent negative responses have been documented in the HPI. Review of Systems: CONST: Denies fever EYES: Denies blurry vision ENT: Denies nasal congestion C/V: Denies Chest pain RESP: Denies shortness of breath GI: Endorses abdominal pain, bruising : Denies dysuria SKIN: Denies rash. MSK: Denies joint pain. 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", past "stroke" some mild short term memory problems", throat polyps removed pt stated were cancerous, ANEURYSM ("CHEST AREA")- DR WATCHING IT" History of Any Multi-Drug Resistant Organisms: None Reported Past Surgical History: Back Surgery, Cholecystectomy, Heart Catheterization, Hernia Repair Additional Past Surgical History / Comment(s): nancy inguinal hernia repair, throat polpys removed Past Anesthesia/Blood Transfusion Reactions: Previous Problems w/ Anesthesia, Motion Sickness Additional Past Anesthesia/Blood Transfusion Reaction / Comment(s): STATES TAKES LONGER TO WAKE UP" Past Psychological History: Depression Smoking Status: Former smoker Past Alcohol Use History: None Reported Past Drug Use History: None Reported - Past Family History Mother Family Medical History: CVA/TIA Father Family Medical History: CVA/TIA, Myocardial Infarction ([place]) Additional Family Medical History / Comment(s): Father of a [place] while in his 60s or 70s <Donald Nunez - Last Filed: 12/29/20 11:19> General Exam Limitations: no limitations <Donald Nunez - Last Filed: 12/29/20 11:19> - General Exam Comments Initial Comments: General: Appears in no acute distress. HEAD: Normal with no signs of head trauma. EYES: PERRLA, EOMI, conjunctiva normal, no discharge. ENT: Hearing grossly intact, normal oropharynx. RESPIRATORY: Clear breath sounds bilaterally. No wheezes, rales, or rhonchi. C/V: Regular rate and rhythm. S1 and S2 auscultated, no edema, peripheral pulses 2+ and intact throughout ABD: Abdomen is soft, nondistended. Patient is tender to palpation over the sit es of bruising but nowhere else. No guarding. No peritoneal signs. No rebound tenderness. EXT: Normal range of motion, no obvious deformity SKIN: His periumbilical bruising as well as left sided bruising along the inferior aspect of the abdomen radiating towards the flank. It is purple in color. Tender to palpation. NEURO: Alert and oriented 4. No focal deficits. (Donald Nunez) Course Vital Signs 12/28/20 12/28/20 12/28/20 13:07 15:19 17:42 Temperature 98.4 F 98.3 F Pulse Rate 92 89 94 Pulse Rate [ Left Pulse Oximetery] Respiratory 18 16 16 Rate Blood Pressure 131/74 152/70 138/69 Blood Pressure [Left Arm] O2 Sat by Pulse 98 98 94 L Oximetry 12/28/20 20:00 Temperature 98.1 F Pulse Rate Pulse Rate [ 74 Left Pulse Oximetery] Respiratory 18 Rate Blood Pressure Blood Pressure 142/70 [Left Arm] O2 Sat by Pulse 93 L Oximetry Medical Decision Making - Lab Data Result diagrams: 12/29/20 05:35 12/29/20 05:35 <Donald Nunez - Last Filed: 12/29/20 11:19> - Lab Data Result diagrams: 12/29/20 05:35 12/29/20 05:35 <Мария Braxton - Last Filed: 01/03/21 14:48> - Medical Decision Making Based on the patient's presentation and physical exam, he does have abdominal bruising of unknown etiology. He has no other abdominal pain or trauma to ex plain this. Therefore we will obtain abdominal laboratory studies as well as CT imaging to rule out serious causes of bleeding. Patient was in agreement with this plan. Patient's lavatory studies are remarkable for a normocytic anemia with a hemoglobin 11.5 which is stable for him. Patient has an elevated BUN/creatinine with a creatinine of 1.48 likely secondary to an NELLI. Urinalysis is negative for acute infection. The remainder of the labs are unremarkable. CT imaging is remarkable for an enlarging aneurysm with evidence of endoleak. Aneurysm is now 5.7 cm versus prior 5.6 cm. Patient does have a AAA repair with Dr. Hunt from earlier this year. No other acute process are visualized. Due to the patient's bruising, which appear to be lawson Norris sign and: Sign as well as the CT imaging, I will consult vascular surgery. I spoke with Dr. Germain who is on-call for vascular surgery who wants to discuss the case with the patient's surgeon. Patient signed out to oncoming emergency department Dr. Dr. Braxton in serious condition. Disposition is pending results of CT imaging. (Donald Nunez) Dr. Hunt came to the emergency room and evaluated the patient. Requesting that the patient have a CT angiography done tomorrow after he receives fluids. Did discuss this with the patient who agreed to admission with CT to be performed in the morning. Patient will be admitted to [facility] (Мария Braxton) - Lab Data Lab Results 12/28/20 12/28/20 12/28/20 Range/Units 13:57 13:57 13:57 WBC 7.1 (3.8-10.6) k/uL RBC 3.77 L (4.30-5.90) m/uL Hgb 11.5 L (13.0-17.5) gm/dL Hct 34.7 L (39.0-53.0) % MCV 92.1 (80.0-100.0) fL MCH 30.6 (25.0-35.0) pg MCHC 33.2 (31.0-37.0) g/dL RDW 14.3 (11.5-15.5) % Plt Count 219 (150-450) k/uL MPV 8.0 Neutrophils % 62 % Lymphocytes % 22 % Monocytes % 7 % Eosinophils % 8 % Basophils % 0 % Neutrophils # 4.4 (1.3-7.7) k/uL Lymphocytes # 1.5 (1.0-4.8) k/uL Monocytes # 0.5 (0-1.0) k/uL Eosinophils # 0.5 (0-0.7) k/uL Basophils # 0.0 (0-0.2) k/uL PT 10.0 (9.0-12.0) sec INR 0.9 (<1.2) APTT 23.2 (22.0-30.0) sec Sodium (137-145) mmol/L Potassium (3.5-5.1) mmol/L Chloride (98-107) mmol/L Carbon Dioxide (22-30) mmol/L Anion Gap mmol/L BUN (9-20) mg/dL Creatinine (0.66-1.25) mg/dL Est GFR (CKD-EPI)AfAm (>60 ml/min/1.73 sqM) Est GFR (CKD-EPI)NonAf (>60 ml/min/1.73 sqM) Glucose (74-99) mg/dL Plasma Lactic Acid Sy (0.7-2.0) mmol/L Calcium (8.4-10.2) mg/dL Total Bilirubin (0.2-1.3) mg/dL AST (17-59) U/L ALT (4-49) U/L Alkaline Phosphatase (38-126) U/L Total Protein (6.3-8.2) g/dL Albumin (3.5-5.0) g/dL Amylase (30-110) U/L Lipase (23-300) U/L Urine Color Yellow Urine Appearance Clear (Clear) Urine pH 5.5 (5.0-8.0) Ur Specific [place] 1.019 (1.001-1.035) Urine Protein Negative (Negative) Urine Glucose (UA) Negative (Negative) Urine Ketones Negative (Negative) Urine Blood Negative (Negative) Urine Nitrite Negative (Negative) Urine Bilirubin Negative (Negative) Urine Urobilinogen <2.0 (<2.0) mg/dL Ur Leukocyte Esterase Negative (Negative) Coronavirus (PCR) (Not Detectd) Blood Type Blood Type Recheck Bld Type Recheck Status Antibody Screen Spec Expiration Date 12/28/20 12/28/20 12/28/20 Range/Units 13:57 13:57 13:57 WBC (3.8-10.6) k/uL RBC (4.30-5.90) m/uL Hgb (13.0-17.5) gm/dL Hct (39.0-53.0) % MCV (80.0-100.0) fL MCH (25.0-35.0) pg MCHC (31.0-37.0) g/dL RDW (11.5-15.5) % Plt Count (150-450) k/uL MPV Neutrophils % % Lymphocytes % % Monocytes % % Eosinophils % % Basophils % % Neutrophils # (1.3-7.7) k/uL Lymphocytes # (1.0-4.8) k/uL Monocytes # (0-1.0) k/uL Eosinophils # (0-0.7) k/uL Basophils # (0-0.2) k/uL PT (9.0-12.0) sec INR (<1.2) APTT (22.0-30.0) sec Sodium 137 (137-145) mmol/L Potassium 5.0 (3.5-5.1) mmol/L Chloride 106 (98-107) mmol/L Carbon Dioxide 18 L (22-30) mmol/L Anion Gap 13 mmol/L BUN 26 H (9-20) mg/dL Creatinine 1.48 H (0.66-1.25) mg/dL Est GFR (CKD-EPI)AfAm 57 (>60 ml/min/1.73 sqM) Est GFR (CKD-EPI)NonAf 49 (>60 ml/min/1.73 sqM) Glucose 111 H (74-99) mg/dL Plasma Lactic Acid Sy 1.3 (0.7-2.0) mmol/L Calcium 9.6 (8.4-10.2) mg/dL Total Bilirubin 0.7 (0.2-1.3) mg/dL AST 41 (17-59) U/L ALT 45 (4-49) U/L Alkaline Phosphatase 69 (38-126) U/L Total Protein 7.7 (6.3-8.2) g/dL Albumin 4.7 (3.5-5.0) g/dL Amylase 93 (30-110) U/L Lipase 219 (23-300) U/L Urine Color Urine Appearance (Clear) Urine pH (5.0-8.0) Ur Specific [place] (1.001-1.035) Urine Protein (Negative) Urine Glucose (UA) (Negative) Urine Ketones (Negative) Urine Blood (Negative) Urine Nitrite (Negative) Urine Bilirubin (Negative) Urine Urobilinogen (<2.0) mg/dL Ur Leukocyte Esterase (Negative) Coronavirus (PCR) (Not Detectd) Blood Type O Positive Blood Type Recheck O Pos Bld Type Recheck Status No Antibody Screen NEGATIVE Spec Expiration Date 12/31/2020 - 235612/28/20 Range/Units 16:36 WBC (3.8-10.6) k/uL RBC (4.30-5.90) m/uL Hgb (13.0-17.5) gm/dL Hct (39.0-53.0) % MCV (80.0-100.0) fL MCH (25.0-35.0) pg MCHC (31.0-37.0) g/dL RDW (11.5-15.5) % Plt Count (150-450) k/uL MPV Neutrophils % % Lymphocytes % % Monocytes % % Eosinophils % % Basophils % % Neutrophils # (1.3-7.7) k/uL Lymphocytes # (1.0-4.8) k/uL Monocytes # (0-1.0) k/uL Eosinophils # (0-0.7) k/uL Basophils # (0-0.2) k/uL PT (9.0-12.0) sec INR (<1.2) APTT (22.0-30.0) sec Sodium (137-145) mmol/L Potassium (3.5-5.1) mmol/L Chloride (98-107) mmol/L Carbon Dioxide (22-30) mmol/L Anion Gap mmol/L BUN (9-20) mg/dL Creatinine (0.66-1.25) mg/dL Est GFR (CKD-EPI)AfAm (>60 ml/min/1.73 sqM) Est GFR (CKD-EPI)NonAf (>60 ml/min/1.73 sqM) Glucose (74-99) mg/dL Plasma Lactic Acid Sy (0.7-2.0) mmol/L Calcium (8.4-10.2) mg/dL Total Bilirubin (0.2-1.3) mg/dL AST (17-59) U/L ALT (4-49) U/L Alkaline Phosphatase (38-126) U/L Total Protein (6.3-8.2) g/dL Albumin (3.5-5.0) g/dL Amylase (30-110) U/L Lipase (23-300) U/L Urine Color Urine Appearance (Clear) Urine pH (5.0-8.0) Ur Specific [place] (1.001-1.035) Urine Protein (Negative) Urine Glucose (UA) (Negative) Urine Ketones (Negative) Urine Blood (Negative) Urine Nitrite (Negative) Urine Bilirubin (Negative) Urine Urobilinogen (<2.0) mg/dL Ur Leukocyte Esterase (Negative) Coronavirus (PCR) Not Detected (Not Detectd) Blood Type Blood Type Recheck Bld Type Recheck Status Antibody Screen Spec Expiration Date Disposition <Donald Nunez - Last Filed: 12/29/20 11:19> Is patient prescribed a controlled substance at d/c from ED?: No Decision to Admit Reason: Admit from EC Decision Date: 12/28/20 Decision Time: 16:52 <Мария Braxton - Last Filed: 01/03/21 14:48> Clinical Impression: Abdominal pain, Superficial bruising of abdominal wall, S/P AAA repair, End oleak of aortic graft Disposition: ADMITTED IP TO THIS HOSP Condition: Fair
--- NOTE | 2020-12-28 15:35 | CT ---
EXAMINATION TYPE: CT abdomen pelvis w con DATE OF EXAM: 12/28/2020 COMPARISON: CT 01/14/2020 HISTORY: Cough and Mid to low abdominal bruising without injury. CT DLP: 1197.6 mGycm Automated exposure control for dose reduction was used. TECHNIQUE: Helical acquisition of images from the lung bases through the pelvis have been completed. CONTRAST: Performed without Oral Contrast and with IV Contrast, patient injected with 100 mL of Isovue 300. FINDINGS: Postop changes noted to the anterior abdominal wall, increased density within the subcutane ous fat over the anterior abdomen is likely due to ecchymosis. LUNG BASES: No significant abnormality is appreciated. AORTA: Patient shows aortic stent graft change, the limbs of the graft appear to enhance, there is l uminal increased density within the aneurysm, outside of the limbs of the graft, the aneurysm measure s 5.7 cm as compared to prior when it measured 5.6 cm.. LIVER/GB: Liver shows low attenuation likely due to hepatic steatosis, patient is post cholecystectom y PANCREAS: No significant abnormality is seen. SPLEEN: No significant abnormality is seen. ADRENALS: No significant abnormality is seen. KIDNEYS: No significant change is seen, cortical cyst noted associated with the anterior aspect of th e right kidney. REPRODUCTIVE ORGANS: No significant abnormality is seen BOWEL: There is some small bowel wall thickening which could be due to an enteritis FREE AIR: No Free Air visible. ASCITES: None visible. PELVIC ADENOPATHY: None visualized. RETROPERITONEAL ADENOPATHY: No Retroperitoneal Adenopathy visible. URINARY BLADDER: No significant abnormality is seen. OSSEOUS STRUCTURES: Degenerative disc changes are present visualized spine, there is some facet arth ropathy change in the lumbar spine. IMPRESSION: ENLARGING ANEURYSM WITH EVIDENCE OF ENDOLEAK, CONSIDER VASCULAR SURGERY CONSULT. Hepatic steatosis. P robable superficial ecchymosis over the anterior abdomen, postop change
--- NOTE | 2020-12-28 16:37 | P.GSCN ---
History of Present Illness Consult date: 12/28/20 Reason for Consult: history of AAA and EVAR with possible endoleak History of present illness: 65 year old male with history of AAA and EVAR in April presents to the ER secondary to abdominal pain onset 3 days ago. He states he has been coughing over the last several days and noticed bruising along his abdomen after his pain started. He thought he had COVID and was tested 2 days ago which was negative. He denies any back pain, pain with ambulation in his legs, fevers, chills or chest pain. 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", past "stroke" some mild short term memory problems", throat polyps removed pt stated were cancerous, ANEURYSM ("CHEST AREA")- DR WATCHING IT" History of Any Multi-Drug Resistant Organisms: None Reported Past Surgical History: Back Surgery, Cholecystectomy, Heart Catheterization, Hernia Repair Additional Past Surgical History / Comment(s): nancy inguinal hernia repair, throat polpys removed Past Anesthesia/Blood Transfusion Reactions: Previous Problems w/ Anesthesia, Motion Sickness Additional Past Anesthesia/Blood Transfusion Reaction / Comm: STATES TAKES LONGE R TO WAKE UP" Past Psychological History: Depression Smoking Status: Former smoker Past Alcohol Use History: None Reported Past Drug Use History: None Reported - Past Family History Mother Family Medical History: CVA/TIA Father Family Medical History: CVA/TIA, Myocardial Infarction ([place]) Additional Family Medical History / Comment(s): Father of a [place] while in his 60s or 70s Medications and Allergies Home Medications Medication Instructions Recorded Confirmed Type Aspirin 325 mg PO DAILY 04/26/17 05/01/20 History Cholecalciferol (Vitamin D3) 2,000 unit PO DAILY 04/26/17 05/01/20 History [Vitamin D3] Citalopram Hydrobromide 40 mg PO DAILY 04/26/17 05/01/20 History [Citalopram HBr] Clopidogrel [Plavix] 75 mg PO HS 04/26/17 05/01/20 History Omeprazole 40 mg PO DAILY 04/26/17 05/01/20 History [place]-3 Fatty Acids/Fish Oil [Fish 1 cap PO DAILY 06/05/18 05/01/20 History Oil 1,000 mg Softgel] Atorvastatin Calcium [Lipitor] 10 mg PO HS 01/14/20 05/01/20 History Icosapent Ethyl [Vascepa] 2.4 gm PO DAILY #0 01/18/20 05/01/20 History Metoprolol Tartrate [Lopressor] 100 mg PO DAILY 01/18/20 05/01/20 History lisinopriL [Zestril] 20 mg PO BID 04/29/20 05/01/20 History Allergies Allergy/AdvReac Type Severity Reaction Status Date / Time hydrochlorothiazide Allergy Rash/Hives Verified 12/28/20 13:10 Surgical - Exam Vital Signs Temp Pulse Resp BP Pulse Ox 98.4 F 92 18 131/74 98 12/28/20 13:07 12/28/20 13:07 12/28/20 13:07 12/28/20 13:07 12/28/20 13:07 - General well developed, well nourished, no distress - Eyes PERRL, normal ocular movement - ENT normal pinna, normal nares - Neck no masses, no bruits - Respiratory normal expansion - Cardiovascular Rhythm: regular - Abdomen tense, echymosis at the umbilicus and left flank/ lower quadrant area Abdomen: tender, distended - Integumentary no rash - Neurologic normal coordination, normal sensation - Musculoskeletal normal gait - Psychiatric oriented to time, oriented to person, oriented to place, speech is normal palpable DP and PT pulses bilaterally. Results - Labs 12/28/20 13:57 12/28/20 13:57 Abnormal Lab Results - Last 24 Hours (Table) 12/28/20 12/28/20 Range/Units 13:57 13:57 RBC 3.77 L (4.30-5.90) m/uL Hgb 11.5 L (13.0-17.5) gm/dL Hct 34.7 L (39.0-53.0) % Carbon Dioxide 18 L (22-30) mmol/L BUN 26 H (9-20) mg/dL Creatinine 1.48 H (0.66-1.25) mg/dL Glucose 111 H (74-99) mg/dL Diabetes panel 12/28/20 Range/Units 13:57 Sodium 137 (137-145) mmol/L Potassium 5.0 (3.5-5.1) mmol/L Chloride 106 (98-107) mmol/L Carbon Dioxide 18 L (22-30) mmol/L BUN 26 H (9-20) mg/dL Creatinine 1.48 H (0.66-1.25) mg/dL Glucose 111 H (74-99) mg/dL Calcium 9.6 (8.4-10.2) mg/dL AST 41 (17-59) U/L ALT 45 (4-49) U/L Alkaline Phosphatase 69 (38-126) U/L Total Protein 7.7 (6.3-8.2) g/dL Albumin 4.7 (3.5-5.0) g/dL Calcium panel 12/28/20 Range/Units 13:57 Calcium 9.6 (8.4-10.2) mg/dL Albumin 4.7 (3.5-5.0) g/dL Pituitary panel 12/28/20 Range/Units 13:57 Sodium 137 (137-145) mmol/L Potassium 5.0 (3.5-5.1) mmol/L Chloride 106 (98-107) mmol/L Carbon Dioxide 18 L (22-30) mmol/L BUN 26 H (9-20) mg/dL Creatinine 1.48 H (0.66-1.25) mg/dL Glucose 111 H (74-99) mg/dL Calcium 9.6 (8.4-10.2) mg/dL Adrenal panel 12/28/20 Range/Units 13:57 Sodium 137 (137-145) mmol/L Potassium 5.0 (3.5-5.1) mmol/L Chloride 106 (98-107) mmol/L Carbon Dioxide 18 L (22-30) mmol/L BUN 26 H (9-20) mg/dL Creatinine 1.48 H (0.66-1.25) mg/dL Glucose 111 H (74-99) mg/dL Calcium 9.6 (8.4-10.2) mg/dL Total Bilirubin 0.7 (0.2-1.3) mg/dL AST 41 (17-59) U/L ALT 45 (4-49) U/L Alkaline Phosphatase 69 (38-126) U/L Total Protein 7.7 (6.3-8.2) g/dL Albumin 4.7 (3.5-5.0) g/dL - Imaging CT scan - abdomen: report reviewed, image reviewed (possible endoleak noted- would need CTA for better diagnostic ability for endoleak) Assessment and Plan Assessment: 1. Abdominal pain with echymosis possible muscle injury 2. AAA with history of EVAR 3. Possible endoleak 4. Acute kidney injury Plan: Reviewed CT abdomen and pelvis with the patient. Would recommend CTA for better visualization of possible endoleak. Unlikely patients pain and symptoms from aortic endoleak. No surgical intervention at this time. Due to increase creatinine I would recommend hydration prior to CTA. Thank you for the consultation.
[2020-12-28] MEDS ORDERED: NALOXONE 0.4 MG/ML 1 ML VIAL IV PRN (16:52)
[2020-12-28] MEDS: SODIUM CHLORIDE 0.9% 1,000 ML IV SCH ×2 (17:40→22:52)
[2020-12-28] MEDS ORDERED: hydrOXYzine pamoate 25 MG CAP PO PRN (18:45)
[2020-12-28] MEDS ORDERED: hydrALAZINE HCL 20 MG/ML 1 ML VIAL IVP PRN (18:47)
--- NOTE | 2020-12-28 19:32 | XR ---
EXAMINATION TYPE: XR chest 2V DATE OF EXAM: 12/28/2020 COMPARISON: 01/17/2020. HISTORY: Cough TECHNIQUE: Frontal and lateral views of the chest are obtained. FINDINGS: There is no focal air space opacity, pleural effusion, or pneumothorax seen. The cardiac silhouette size is within normal limits. The osseous structures are intact. IMPRESSION: No acute cardiopulmonary process.
[2020-12-28] MEDS: MORPHINE SULFATE 4 MG/ML SYRINGE IVP PRN (19:53)
[2020-12-28] MEDS ORDERED: ATORVASTATIN 10 MG TAB PO SCH (21:00)
[2020-12-29] MEDS: SODIUM CHLORIDE 0.9% 1,000 ML IV SCH (02:10)
[2020-12-29] MEDS: MORPHINE SULFATE 4 MG/ML SYRINGE IVP PRN (02:10)
[2020-12-29 06:21] LABS: Basophils % (A) 0 %; Eosinophils # (A) 0.3 k/uL (0-0.7); Eosinophils % (A) 5 %; HCT 32.6 % (39.0-53.0); HGB 10.9 gm/dL (13.0-17.5); Lymphocytes % (A) 19 %; MCH 31.4 pg (25.0-35.0); MCHC 33.4 g/dL (31.0-37.0); MCV 94.2 fL (80.0-100.0); Monocytes # (A) 0.3 k/uL (0-1.0); Monocytes % (A) 5 %; Neutrophils # (A) 3.6 k/uL (1.3-7.7); Neutrophils % (A) 67 %; Platelet Count 182 k/uL (150-450); RBC 3.46 m/uL (4.30-5.90); RDW 14.3 % (11.5-15.5); WBC 5.3 k/uL (3.8-10.6)
[2020-12-29 06:37] LABS: Calcium 8.7 mg/dL (8.4-10.2)
[2020-12-29] MEDS ORDERED: HYDROmorphone 0.5 MG/0.5 ML SYRINGE IVP PRN (06:48)
[2020-12-29] MEDS ORDERED: PANTOPRAZOLE 40 MG TABLET PO SCH (07:30)
[2020-12-29] MEDS ORDERED: ONDANSETRON 4 MG/2 ML VIAL IVP PRN (07:54)
--- NOTE | 2020-12-29 07:59 | P.HPIM ---
History of Present Illness H&P Date: 12/29/20 Chief Complaint: Periumbilical/left lower quadrant pain 65-year-old male with significant past medical history of AAA with a history of endovascular leak, hypertension, hyperlipidemia, carotid stenosis, coronary artery disease with heart catheterizations, hernia repair, mixed anxiety and depression, former nicotine dependence and several comorbidities is admitted to the hospital for abdominal pain, Cook Norris's sign, status post AAA repair, and endoleak of aortic graft. Patient had extensive diagnostic workup in emergency department consisting of CT abdomen and pelvis, dictation from radiologist enlarging aneurysm with evidence of endoleak; by mouth diagnostic labs hemoglobin 11.5, hematocrit 34.7, CMP, indirect bicarb 18, BUN 26, creatinine 1.48, mildly elevated glucose of 111, Covid test negative. Emergency department physician consulted vascular surgery, seen patient in the emergency department requesting CTA of the abdomen and pelvis for further imaging studies. 12/29/2020 Patient seen and examined at bedside. Patient resting in bed. Patient endorses severe abdominal pain, mild shortness of breath, exertional shortness of breath and generalized fatigue. Patient denies fever, chills, chest pain, palpitations, nausea, or diarrhea at this time. Review of diagnostic labs; CBC hemoglobin 10.9, hematocrit 32.6; CMP improvement and hydration indirect bicarb 27, renal function improved creatinine 1.13 BUN 20 GFR improved to 66. Chest x- ray no acute cardiopulmonary processes noted. Awaiting on CT a of the abdomen and pelvis and expert opinion from surgical vascular team. Review of Systems Constitutional: Reports poor appetite, Reports weakness Cardiovascular: Reports dyspnea on exertion Gastrointestinal: Reports abdominal pain Genitourinary: Reports as per HPI Musculoskeletal: Reports muscle weakness Integumentary: Reports unusual bruising (Periumbilical, left lower quadrant) Neurological: Reports weakness Psychiatric: Reports as per HPI Endocrine: Reports as per HPI Hematologic/Lymphatic: Reports easy bruising Allergic/Immunologic: Reports as per HPI 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", past "stroke" some mild short term memory problems", throat polyps removed pt stated were cancerous, ANEURYSM ("CHEST AREA")- DR WATCHING IT" History of Any Multi-Drug Resistant Organisms: None Reported Past Surgical History: Back Surgery, Cholecystectomy, Heart Catheterization, Hernia Repair Additional Past Surgical History / Comment(s): nancy inguinal hernia repair, throat polpys removed Past Anesthesia/Blood Transfusion Reactions: Previous Problems w/ Anesthesia, Motion Sickness Additional Past Anesthesia/Blood Transfusion Reaction / Comment(s): STATES TAKES LONGER TO WAKE UP" Past Psychological History: Depression Additional Psychological History / Comment(s): Pt resides with his spouse. He is independent. pt works Smoking Status: Former smoker Past Alcohol Use History: None Reported Additional Past Alcohol Use History / Comment(s): Pt started smoking at age 15 (1970) and quit 1985, smoked 2-3 ppd. Pt stated sometimes i would light one but put it down to do something and never smoked it. Past Drug Use History: None Reported - Past Family History Mother Family Medical History: CVA/TIA Father Family Medical History: CVA/TIA, Myocardial Infarction ([place]) Additional Family Medical History / Comment(s): Father of a [place] while in his 60s or 70s Medications and Allergies Home Medications and Allergies Comment(s): Medications and ALLERGIES reviewed Home Medications Medication Instructions Recorded Confirmed Type RX: Aspirin 325 mg PO DAILY 04/26/17 12/28/20 History RX: Cholecalciferol (Vitamin D3) 2,000 unit PO DAILY 04/26/17 12/28/20 History [Vitamin D3] RX: Citalopram Hydrobromide 40 mg PO DAILY 04/26/17 12/28/20 History [Citalopram HBr] RX: Clopidogrel [Plavix] 75 mg PO DAILY 04/26/17 12/28/20 History RX: Omeprazole 40 mg PO DAILY 04/26/17 12/28/20 History RX: Atorvastatin Calcium [Lipitor] 10 mg PO HS 01/14/20 12/28/20 History RX: Icosapent Ethyl [Vascepa] 2 gm PO DAILY #0 01/18/20 12/28/20 History RX: Metoprolol Tartrate [Lopressor] 100 mg PO DAILY 01/18/20 12/28/20 History RX: lisinopriL [Zestril] 20 mg PO BID 04/29/20 12/28/20 History Furosemide [Lasix] 20 mg PO DAILY PRN 12/28/20 12/28/20 History Hydrochlorothiazide 12.5 mg PO HS 12/28/20 12/28/20 History [hydroCHLOROthiazide] RX: hydrOXYzine pamoate 25 mg PO QID PRN 12/28/20 12/28/20 History [hydrOXYzine PAMOATE] Allergies Allergy/AdvReac Type Severity Reaction Status Date / Time hydrochlorothiazide AdvReac Itching Verified 12/28/20 16:51 Physical Exam Vitals: Vital Signs Temp Pulse Pulse Resp BP BP Pulse Ox 12/29/20 03:41 97.8 F 86 16 126/81 92 L 12/29/20 00:00 97.5 F L 75 18 144/86 97 12/28/20 20:00 98.1 F 74 18 142/70 93 L 12/28/20 17:42 94 16 138/69 94 L 12/28/20 15:19 98.3 F 89 16 152/70 98 12/28/20 13:07 98.4 F 92 18 131/74 98 Intake and Output 12/28/20 12/29/20 12/29/20 22:59 06:59 14:59 Intake Total 240 Balance 240 Intake: Oral 240 Other: Voiding Method Toilet # Voids 1 1 Weight 83.461 kg 84.3 kg - Constitutional General appearance: mild distress - EENT Eyes: EOMI, PERRLA ENT: normal oropharynx Ears: bilateral: normal - Neck Neck: normal ROM Carotids: bilateral: upstroke normal Thyroid: bilateral: normal size - Respiratory Respiratory: bilateral: diminished (Anterior and posterior lung quiñones) - Cardiovascular Normal sinus rhythm Heart rate: 84 Rhythm: regular Heart sounds: normal: S1, S2 dorsalis pedis Peripheral Pulses: bilateral: Normal radial pulse Peripheral Pulses: bilateral: Normal - Gastrointestinal General gastrointestinal: tenderness Localized gastrointestinal: tender: diffuse, guarding: diffuse, rebound: diffuse - Integumentary Integumentary: pale - Neurologic Neurologic: CNII-XII intact - Musculoskeletal Musculoskeletal: gait normal - Psychiatric Psychiatric: A&O x's 3, appropriate affect, intact judgment & insight Results CBC & Chem 7: 12/29/20 05:35 12/29/20 05:35 Labs: Abnormal Lab Results - Last 24 Hours (Table) 12/28/20 12/28/20 12/29/20 Range/Units 13:57 13:57 05:35 RBC 3.77 L 3.46 L (4.30-5.90) m/uL Hgb 11.5 L 10.9 L (13.0-17.5) gm/dL Hct 34.7 L 32.6 L (39.0-53.0) % Carbon Dioxide 18 L (22-30) mmol/L BUN 26 H (9-20) mg/dL Creatinine 1.48 H (0.66-1.25) mg/dL Glucose 111 H (74-99) mg/dL 12/29/20 Range/Units 05:35 RBC (4.30-5.90) m/uL Hgb (13.0-17.5) gm/dL Hct (39.0-53.0) % Carbon Dioxide (22-30) mmol/L BUN (9-20) mg/dL Creatinine 1.31 H (0.66-1.25) mg/dL Glucose 104 H (74-99) mg/dL CT scan - abdomen: report reviewed Thrombosis Risk Factor Assmnt - Choose All That Apply Any of the Below Risk Factors Present?: Yes Each Factor Represents 1 point: Obesity (BMI >25) Other Risk Factors: Yes Each Risk Factor Represents 2 Points: Age 61-74 years Each Risk Factor Represents 3 Points: History of DVT/PE Thrombosis Risk Factor Assessment Total Risk Factor Score: 6 Thrombosis Risk Factor Assessment Level: High Risk Assessment and Plan Assessment: Abdominal pain Superficial bruising of abdominal wall, consistent with Cook Nroris's sign Status post AAA repair History of endoleak of aortic graft History of CVA/TIA Hypertension Hyperlipidemia Carotid stenosis Coronary artery disease with heart catheterizations in the past Hernia repair History of back surgery History of cholecystectomy Mixed anxiety and depression Former nicotine dependence Obesity with a BMI of 34 Full code Plan: Abdominal pain, continue consultation with vascular surgery for expert opinion, continue analgesics as needed, continue to monitor for increasing ecchymosis Acute kidney injury, improved with IV hydration and avoidance of nephrotoxic drugs Hypertension, hold nephrotoxic drugs at this time, hydralazine IV push as needed for blood pressure greater or equal to 150/90 Continue to monitor vital signs and diagnostic testing Continue medical management Further recommendations come based on patient's clinical condition Time with Patient: Greater than 30
[2020-12-29] MEDS ORDERED: Icosapent Ethyl [Vascepa] 0.5 GM Capsule PO SCH (09:00)
[2020-12-29] MEDS ORDERED: METOPROLOL TARTRATE 50 MG TAB PO SCH (09:00)
[2020-12-29] MEDS ORDERED: CHOLECALCIFEROL 25 MCG (1000 IU) TABLET PO SCH (09:00)
[2020-12-29] MEDS ORDERED: CITALOPRAM HYDROBROMIDE 20 MG TAB PO SCH (09:00)
[2020-12-29 10:31] VITALS: RESP 18
--- NOTE | 2020-12-29 11:07 | CT ---
EXAMINATION TYPE: CT angio abdomen pelvis DATE OF EXAM: 12/29/2020 COMPARISON: CT abdomen smaller caliber pelvis one day ago HISTORY: Acute abdominal wall ecchymosis, possible endoleak CT DLP: 1990.6 mGycm, Automated Exposure Control for Dose Reduction was Utilized. CONTRAST: CTA scan of the abdomen and pelvis is performed without oral and without and with IV Contrast, patien t injected with 80 mL of Isovue 370. Stent graft protocol with 3-D reconstructed images created on an independent workstation and reviewed. FINDINGS: VASCULAR: Stent graft begins in the upper abdomen at level of SMA. There is patent celiac artery and SMA without significant stenosis. Bilateral renal arteries without significant stenosis. There is occ lusion of the second smaller caliber right renal artery which is perfusing the anterior aspect lower pole right kidney seen prior study January 14, 2028 coronal images 44 through 49. Patent KRIS remains present. There is patency of the stent graft through [place] AAA measuring up to 5.3 cm AP diameter o n axial image 78. This is not significantly changed from prior studies. There is however enhancement outside the stent graft along the left aspect right before iliac bifurcation which persists and becom es slightly more prominent on delayed phased images extending superiorly. Suspect small-caliber lumba r feeding vessel along the posterior aspect at level of bifurcation seen best image 93 series 501 Sta ble slight aneurysm to the distal left common iliac artery. Patency through the the iliac bifurcation is present. LUNG BASES: No significant abnormality is appreciated. LIVER/GB: Liver markedly hypodense consistent with diffuse fatty infiltration on noncontrast images. PANCREAS: No significant abnormality is seen. SPLEEN: No significant abnormality is seen. ADRENALS: No significant abnormality is seen. KIDNEYS: Nonspecific mild/moderate perinephric fat stranding bilaterally. Symmetric cortical medullar y uptake and excretion without hydronephrosis seen bilaterally. There is 2.1 cm partially exophytic t hin-walled cyst medially from the anteromedial aspect right kidney. There is cortical thinning and di minished enhancement to the anterior aspect lower pole right kidney noted. BOWEL: A few scattered colonic diverticula. No CT evidence for acute diverticulitis PROSTATE/SEMINAL VESICLES: Prostate upper limits of normal in size. LYMPH NODES: No greater than 1cm abdominal or pelvic lymph nodes are appreciated. OSSEOUS STRUCTURES: Straightening of spine with mild multilevel spurring. Moderate axial joint space loss and acetabular spurring. OTHER: Numerous coils in the anterior abdominal wall below rectus muscles. Persistent mild fat strand ing or ecchymosis in the anterior abdominal wall of the mid abdomen near level of umbilicus. No focal fluid collection. IMPRESSION: Confirmation of type II endoleak. [place] AAA not significantly changed or only slightly l arger from presurgical images. Postsurgical occlusion of the second smaller caliber lower right renal artery causing diminished perfusion to the anterior aspect lower pole right kidney and focal volume loss.
[2020-12-29] MEDS ORDERED: SODIUM CHLORIDE 0.9% 1,000 ML IV SCH (11:45)
[2020-12-29] MEDS ORDERED: METOCLOPRAMIDE 5 MG/ML 2 ML VIAL IVP SCH (12:00)
--- NOTE | 2020-12-29 14:50 | P.PN ---
Subjective Progress Note Date: 12/29/20 She was seen and examined at the bedside. He continues to have cough. States that his abdominal tenderness mostly with moving or with palpation to the left lower abdomen. His bruising has not changed. His hemoglobin is stable at 10.9. He had a CT angiogram of the abdomen and pelvis that showed a type II endoleak and abdominal aortic aneurysm measuring 5.3 cm. Objective - Vital Signs Vital signs: Vital Signs Temp 97.8 F 12/29/20 03:41 Pulse 86 12/29/20 03:41 Resp 16 12/29/20 03:41 BP 126/81 12/29/20 03:41 Pulse Ox 92 L 12/29/20 03:41 Intake & Output 12/28/20 12/29/20 12/29/20 18:59 06:59 18:59 Intake Total 240 Balance 240 Weight 83.461 kg 84.3 kg Intake: Oral 240 Other: Voiding Method Toilet # Voids 1 - Exam General appearance: The patient is alert, oriented, appears in no acute distress. HET: Head is normocephalic and atraumatic. Neck: Supple without lymphadenopathy. Trachea midline. Heart: S1 S2. Regular rate and rhythm. Lungs: Diminished. Abdomen: Soft, tender to palpation along the left abdominal wall where bruising is noted. Ecchymosis marked, no increase in size. Extremities: Normal skin color and turgor. Neurological: No focal deficits. Alert and oriented 3. - Labs CBC & Chem 7: 12/29/20 05:35 12/29/20 05:35 Labs: Abnormal Lab Results - Last 24 Hours (Table) 12/28/20 12/28/20 12/29/20 Range/Units 13:57 13:57 05:35 RBC 3.77 L 3.46 L (4.30-5.90) m/uL Hgb 11.5 L 10.9 L (13.0-17.5) gm/dL Hct 34.7 L 32.6 L (39.0-53.0) % Carbon Dioxide 18 L (22-30) mmol/L BUN 26 H (9-20) mg/dL Creatinine 1.48 H (0.66-1.25) mg/dL Glucose 111 H (74-99) mg/dL 12/29/20 Range/Units 05:35 RBC (4.30-5.90) m/uL Hgb (13.0-17.5) gm/dL Hct (39.0-53.0) % Carbon Dioxide (22-30) mmol/L BUN (9-20) mg/dL Creatinine 1.31 H (0.66-1.25) mg/dL Glucose 104 H (74-99) mg/dL Assessment and Plan Assessment: 1. Endoleak type II, known 2. Abdominal aortic aneurysm measuring 5.3 cm status post EVAR 04/2020 (AAA improved from 5.5 cm) 3. Abdominal pain with ecchymosis 4. Cough Plan: CTA abdomen and pelvis reviewed by Dr. Hunt. Type II endoleak noted, which this has been known. Abdominal aortic aneurysm measuring 5.3 cm which is improved from 5.5 cm status post EVAR 04/2020. Hemoglobin is stable with no evidence of ongoing bleed. Ecchymosis has been marked with no increase in size. There is no indication for any vascular surgical intervention. Patient will follow-up with cardiology and vascular surgery outpatient for monitoring of endoleak. Patient is cleared for discharge from vascular surgery. The impression and plan of care has been dictated as directed. Dr. Hunt I performed a history and examination of this patient, discussed the same with the dictator. I agree with the dictator's note ,documented as a scribe. Any additional findings or plans will be noted.
--- NOTE | 2020-12-29 15:45 | P.GSCN ---
History of Present Illness Consult date: 12/29/20 History of present illness: CHIEF COMPLAINT: Abdominal pain HISTORY OF PRESENT ILLNESS: This is a 65-year-old male with a known past medical history of abdominal aortic aneurysm with repair earlier this year. He is on Plavix and aspirin. He presented to the emergency room with complaints of abdominal pain and bruising over on his abdomen. Patient had complained mostly of left upper quadrant pain for the past 2 days. He reports that he has been coughing. He denies any trauma to the area. Patient had computed tomography scan of abdomen completed showing enlarging aneurysm with evidence of endoleak. Hepatic steatosis. Probable superficial ecchymosis over the anterior abdomen. Patient also had a CTA of the abdomen demonstrates confirmation of type II end oleak. [place] AAA not significant changed or only slightly larger from presurgical images. Patient was seen by vascular surgery. And they are recommending no surgical intervention. During our examination patient denies abdominal pain. He denies any blood in his stools. Denies any diarrhea. De nies any heartburn symptoms or pain after eating. He reports that his abdominal pain is mostly worse after coughing. PAST MEDICAL HISTORY: See list. PAST SURGICAL HISTORY: See list. MEDICATIONS: See list. ALLERGIES: See list. SOCIAL HISTORY: No illicit drug use. REVIEW OF SYSTEMS: CONSTITUTIONAL: Denies fever or chills. HEENT: Denies blurred vision, vision changes, or eye pain. Denies hemoptysis ENDOCRINE: Denies heat or cold intolerance. CARDIOVASCULAR: Denies chest pain or pressure. RESPIRATORY: No shortness of breath. GASTROINTESTINAL: Please refer to HPI NEURO: Denies history of seizures. PSYCH: No depression or suicidal ideation HEMATOLOGIC: Denies bleeding disorders. LYMPHATIC: The patient denies any lumps and bumps around the neck. GENITOURINARY: Denies any blood in urine or increased urinary frequency. MUSCULOSKELETAL: Denies myalgias. Denies joint swelling. Denies decreased range of motion beyond patients baseline. SKIN: Denies pruitis. Denies rash. PHYSICAL EXAM: VITAL SIGNS: Reviewed GENERAL: Well-developed in no acute distress. HEENT: No sclera icterus. Extraocular movements grossly intact. Moist buccal mucosa. Head is atraumatic, normocephalic. Hears conversational speech. No nasal drainage. NECK: Supple without lymphadenopathy. CHEST: Non-labored respirations and equal bilateral excursions. CARDIOVASCULAR: Palpable 2+ radial pulses. ABDOMEN: Soft. Nondistended. MUSCULOSKELETAL: No clubbing or cyanosis. NEUROLOGIC: No focal or lateralizing signs. Cranial nerves II through XII grossly intact. PSYCH: Appropriate affect. Alert and oriented to person, place and time. SKIN: Well perfused. Good skin turgor. LABORATORY DATA: WBC 5.3 hemoglobin down from 11.5-10.9 platelets 182 Sodium 139 potassium 5.0 BUN 20 creatinine 1.31 LFTs normal lipase normal Urinalysis negative for infection COVID-19 not detected IMAGING: Chest x-ray no acute cardiopulmonary process Computed tomography scan of abdomen and CTA of abdomen and pelvis as stated above ASSESSMENT: 1. Abdominal pain with ecchymosis 2. Endoleak type II evaluated by vascular surgery 3. Cough likely causing patient's abdominal pain 4. History of abdominal aortic aneurysm status post repair PLAN: -No surgical intervention planned per general surgery -Patient followed by vascular surgery -Continue supportive care Thank you for this consultation Physician Lockstitch Pocket Setter note has been reviewed by physician. Signing provider agrees with the documented findings, assessment, and plan of care. 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", past "stroke" some mild short term memory problems", throat polyps removed pt stated were cancerous, ANEURYSM ("CHEST AREA")- DR WATCHING IT" History of Any Multi-Drug Resistant Organisms: None Reported Past Surgical History: Back Surgery, Cholecystectomy, Heart Catheterization, Hernia Repair Additional Past Surgical History / Comment(s): nancy inguinal hernia repair, throat polpys removed Past Anesthesia/Blood Transfusion Reactions: Previous Problems w/ Anesthesia, Motion Sickness Additional Past Anesthesia/Blood Transfusion Reaction / Comm: STATES TAKES LONGER TO WAKE UP" Past Psychological History: Depression Smoking Status: Former smoker Past Alcohol Use History: None Reported Past Drug Use History: None Reported - Past Family History Mother Family Medical History: CVA/TIA Father Family Medical History: CVA/TIA, Myocardial Infarction ([place]) Additional Family Medical History / Comment(s): Father of a [place] while in his 60s or 70s Medications and Allergies Home Medications Medication Instructions Recorded Confirmed Type Aspirin 325 mg PO DAILY 04/26/17 12/28/20 History Cholecalciferol (Vitamin D3) 2,000 unit PO DAILY 04/26/17 12/28/20 History [Vitamin D3] Citalopram Hydrobromide 40 mg PO DAILY 04/26/17 12/28/20 History [Citalopram HBr] Clopidogrel [Plavix] 75 mg PO DAILY 04/26/17 12/28/20 History Omeprazole 40 mg PO DAILY 04/26/17 12/28/20 History Atorvastatin Calcium [Lipitor] 10 mg PO HS 01/14/20 12/28/20 History Icosapent Ethyl [Vascepa] 2 gm PO DAILY #0 01/18/20 12/28/20 History Metoprolol Tartrate [Lopressor] 100 mg PO DAILY 01/18/20 12/28/20 History lisinopriL [Zestril] 20 mg PO BID 04/29/20 12/28/20 History Furosemide [Lasix] 20 mg PO DAILY PRN 12/28/20 12/28/20 History Hydrochlorothiazide 12.5 mg PO HS 12/28/20 12/28/20 History [hydroCHLOROthiazide] hydrOXYzine pamoate [hydrOXYzine 25 mg PO QID PRN 12/28/20 12/28/20 History PAMOATE] Allergies Allergy/AdvReac Type Severity Reaction Status Date / Time hydrochlorothiazide AdvReac Itching Verified 12/28/20 16:51 Surgical - Exam Vital Signs Temp Pulse Resp BP Pulse Ox 98.4 F 92 18 131/74 98 12/28/20 13:07 12/28/20 13:07 12/28/20 13:07 12/28/20 13:07 12/28/20 13:07 Results - Labs 12/29/20 05:35 12/29/20 05:35 Abnormal Lab Results - Last 24 Hours (Table) 12/29/20 12/29/20 Range/Units 05:35 05:35 RBC 3.46 L (4.30-5.90) m/uL Hgb 10.9 L (13.0-17.5) gm/dL Hct 32.6 L (39.0-53.0) % Creatinine 1.31 H (0.66-1.25) mg/dL Glucose 104 H (74-99) mg/dL Diabetes panel 12/29/20 Range/Units 05:35 Sodium 139 (137-145) mmol/L Potassium 5.0 (3.5-5.1) mmol/L Chloride 106 (98-107) mmol/L Carbon Dioxide 27 (22-30) mmol/L BUN 20 (9-20) mg/dL Creatinine 1.31 H (0.66-1.25) mg/dL Glucose 104 H (74-99) mg/dL Calcium 8.7 (8.4-10.2) mg/dL Calcium panel 12/29/20 Range/Units 05:35 Calcium 8.7 (8.4-10.2) mg/dL Pituitary panel 12/29/20 Range/Units 05:35 Sodium 139 (137-145) mmol/L Potassium 5.0 (3.5-5.1) mmol/L Chloride 106 (98-107) mmol/L Carbon Dioxide 27 (22-30) mmol/L BUN 20 (9-20) mg/dL Creatinine 1.31 H (0.66-1.25) mg/dL Glucose 104 H (74-99) mg/dL Calcium 8.7 (8.4-10.2) mg/dL Adrenal panel 12/29/20 Range/Units 05:35 Sodium 139 (137-145) mmol/L Potassium 5.0 (3.5-5.1) mmol/L Chloride 106 (98-107) mmol/L Carbon Dioxide 27 (22-30) mmol/L BUN 20 (9-20) mg/dL Creatinine 1.31 H (0.66-1.25) mg/dL Glucose 104 H (74-99) mg/dL Calcium 8.7 (8.4-10.2) mg/dL
[2020-12-29] MEDS ORDERED: METOCLOPRAMIDE 5 MG/ML 2 ML VIAL IVP PRN (15:46)
[2020-12-29 17:32] VITALS: BP 142/85; PULSE 84; TEMP 98.7
--- NOTE | 2020-12-29 18:12 | P.DS ---
Providers Date of admission: 12/28/20 16:52 Expected date of discharge: 12/29/20 Attending physician: Walter Davila Consults: 12/28/20 16:52 Consult Physician Urgent Consulting Provider: Luis Hunt Consult Reason/Comments: endoleak, hx aaa repair Do you want consulting provider notified?: Already Contacted 12/29/20 12:57 Consult Physician Urgent Consulting Provider: Mita Correa Consult Reason/Comments: abd pain Do you want consulting provider notified?: Yes Primary care physician: Walter Davila Hospital Course: 65-year-old male with significant past medical history of AAA with a history of endovascular leak, hypertension, hyperlipidemia, carotid stenosis, coronary artery disease with heart catheterizations, hernia repair, mixed anxiety and depression, former nicotine dependence and several comorbidities is admitted to the hospital for abdominal pain, Cook Norris's sign, status post AAA repair, and endoleak of aortic graft. Patient had extensive diagnostic workup in emergency department consisting of CT abdomen and pelvis, dictation from radiologist enlarging aneurysm with evidence of endoleak; by mouth diagnostic labs hemoglobin 11.5, hematocrit 34.7, CMP, indirect bicarb 18, BUN 26, creatinine 1.48, mildly elevated glucose of 111, Covid test negative. Emergency department physician consulted vascular surgery, seen patient in the emergency department requesting CTA of the abdomen and pelvis for further imaging studies. Subsequent CT abdomen and pelvis showed no enlarging of the aneurysm and type II endoleak. Patient was evaluated by vascular surgery and cleared for discharge from standpoint. Patient was evaluated by general surgery due to superficial ecchymosis and cleared for discharge from their standpoint. 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 Hypertension Hyperlipidemia Carotid stenosis Coronary artery disease with heart catheterizations in the past Hernia repair History of back surgery History of cholecystectomy Mixed anxiety and depression Former nicotine dependence Obesity with a BMI of 34 Full code Final diagnosis Abdominal pain with history of AAA repair and endoleak of aortic graft, stable per vascular surgery Superficial bruising of abdominal wall, ecchymosis will monitor labs Acute kidney injury, improved with IV hydration and avoidance of nephrotoxic drugs Health Concerns: Multiple comorbidities Complexity medical treatment plan Pertinent Studies: Initial CT abdomen and pelvis, enlarging aneurysm with evidence of endoleak Subsequent CT abdomen and pelvis CTA, dictation from radiologist confirmation of a type II endoleak, AAA not significantly changed or only slightly larger from presurgical images Chest x-ray no acute cardiopulmonary processes noted Procedures: No procedures performed during hospital stay Patient Condition at Discharge: Fair Plan - Discharge Summary Discharge Rx Participant: Yes New Discharge Prescriptions: New HYDROcodone/APAP 5-325MG [Mathias 5-325] 1 tab PO Q6HR PRN 3 Days #12 tab PRN Reason: Pain Continue Citalopram Hydrobromide [Citalopram HBr] 40 mg PO DAILY Cholecalciferol (Vitamin D3) [Vitamin D3] 2,000 unit PO DAILY Omeprazole 40 mg PO DAILY Clopidogrel [Plavix] 75 mg PO DAILY Aspirin 325 mg PO DAILY Atorvastatin Calcium [Lipitor] 10 mg PO HS Icosapent Ethyl [Vascepa] 2 gm PO DAILY #0 Metoprolol Tartrate [Lopressor] 100 mg PO DAILY lisinopriL [Zestril] 20 mg PO BID Hydrochlorothiazide [hydroCHLOROthiazide] 12.5 mg PO HS Furosemide [Lasix] 20 mg PO DAILY PRN PRN Reason: Edema hydrOXYzine pamoate [hydrOXYzine PAMOATE] 25 mg PO QID PRN PRN Reason: ANXIETY/ITCHING Discharge Medication List Aspirin 325 mg PO DAILY 04/26/17 [History] Cholecalciferol (Vitamin D3) [Vitamin D3] 2,000 unit PO DAILY 04/26/17 [History] Citalopram Hydrobromide [Citalopram HBr] 40 mg PO DAILY 04/26/17 [History] Clopidogrel [Plavix] 75 mg PO DAILY 04/26/17 [History] Omeprazole 40 mg PO DAILY 04/26/17 [History] Atorvastatin Calcium [Lipitor] 10 mg PO HS 01/14/20 [History] Icosapent Ethyl [Vascepa] 2 gm PO DAILY #0 01/18/20 [History] Metoprolol Tartrate [Lopressor] 100 mg PO DAILY 01/18/20 [History] lisinopriL [Zestril] 20 mg PO BID 04/29/20 [History] Furosemide [Lasix] 20 mg PO DAILY PRN 12/28/20 [History] Hydrochlorothiazide [hydroCHLOROthiazide] 12.5 mg PO HS 12/28/20 [History] hydrOXYzine pamoate [hydrOXYzine PAMOATE] 25 mg PO QID PRN 12/28/20 [History] HYDROcodone/APAP 5-325MG [Mathias 5-325] 1 tab PO Q6HR PRN 3 Days #12 tab 12/29/20 [Rx] Follow up Appointment(s)/Referral(s): Walter Davila MD [Primary Care Provider] - 1-2 days (Please call to make afollow up appointment) Luis Hunt DO [STAFF PHYSICIAN] - 1 Week (Please call to make a follow up appointment) Ambulatory/Diagnostic Orders: Complete Blood Count w/diff [LAB.AMB] Location: None Selected Comprehensive Metabolic Panel [LAB.AMB] Location: None Selected Magnesium [LAB.AMB] Location: None Selected Prothrombin Time INR [LAB.AMB] Location: None Selected Patient Instructions/Handouts: Acute Kidney Injury (DC), Nonruptured Abdominal Aortic Aneurysm (DC), Acute Abdominal Pain (DC), Ecchymosis (GEN) Discharge Disposition: HOME SELF-CARE
== END 2020-12-29 18:20 | disposition home or self-care (01) ==
LOC: EC 12:03 → 6NMEDSUR 16:52 → 3SCARD 17:30
PROVIDERS: ADMIT Family Medicine; ATTEND Family Medicine
DX: R10.32 Left lower quadrant pain (principal); R10.12 Left upper quadrant pain; R10.33 Periumbilical pain; S30.1XXA Contusion of abdominal wall, initial encounter; I71.4 Abdominal aortic aneurysm, without rupture; I97.89 Other postprocedural complications and disorders of the circulatory system, not elsewhere classified; I10 Essential (primary) hypertension; E78.5 Hyperlipidemia, unspecified; I65.29 Occlusion and stenosis of unspecified carotid artery; I25.10 Atherosclerotic heart disease of native coronary artery without angina pectoris; E66.9 Obesity, unspecified; Z68.34 Body mass index [BMI] 34.0-34.9, adult; N17.9 Acute kidney failure, unspecified; R05.9 Cough, unspecified; R06.02 Shortness of breath; R41.3 Other amnesia; D64.9 Anemia, unspecified; K76.0 Fatty (change of) liver, not elsewhere classified; R73.02 Impaired glucose tolerance (oral); F41.3 Other mixed anxiety disorders; Z20.822 Contact with and (suspected) exposure to COVID-19; Z86.79 Personal history of other diseases of the circulatory system; Z87.891 Personal history of nicotine dependence; Z86.73 Personal history of transient ischemic attack (TIA), and cerebral infarction without residual deficits; Z85.818 Personal history of malignant neoplasm of other sites of lip, oral cavity, and pharynx; Z86.718 Personal history of other venous thrombosis and embolism; Z86.711 Personal history of pulmonary embolism; Z98.890 Other specified postprocedural states; Z90.49 Acquired absence of other specified parts of digestive tract; Z79.82 Long term (current) use of aspirin; Z79.02 Long term (current) use of antithrombotics/antiplatelets; Z79.899 Other long term (current) drug therapy; Z88.8 Allergy status to other drugs, medicaments and biological substances; Z71.9 Counseling, unspecified; Z82.49 Family history of ischemic heart disease and other diseases of the circulatory system; Z82.3 Family history of stroke
CPT/HCPCS: 96376 ×2; 96361 ×2; 96375; 96374; 99285; 36415; 86900; 86901; 80053; 80048; 82150; 83605; 83690; 85025 ×2; 85610; 85730; 86850; 81003; 87635; 71046; 74177; 74174; G0378 ×3; J2270 ×2; J1170; Q9967 ×2

== ENCOUNTER → 2021-08-16 | Outpatient (CLI) | payer BC ==
--- NOTE | 2021-08-16 14:57 | XR ---
Left foot HISTORY: M 79.672 3 views the left foot There is degenerative change at the metatarsophalangeal joint of the first digit. Alignment is near-a natomic, there may be slight hallux valgus deformity. Bone mineralization is reduced. There is a plan tar calcaneal spur. IMPRESSION: No fracture or dislocation.
== END | disposition home or self-care (01) ==
LOC: RADXRMAIN 13:43
PROVIDERS: ATTEND Family Medicine
DX: M19.072 Primary osteoarthritis, left ankle and foot (principal)

== ENCOUNTER → 2024-07-11 | Outpatient (CLI) | payer MEDICARE ==
--- NOTE | 2024-07-12 08:03 | FL ---
EXAMINATION TYPE: FL barium swallow DATE OF EXAM: 07/11/2024 COMPARISON: NONE CLINICAL INDICATION: Male, 69 years old with history of R13.19 OTHER DYSPHAGIA, difficulty swallowing solids and liquids for months, complaints in the upper chest. Food getting stuck. TECHNIQUE: A double contrast esophagram is performed utilizing air and barium. A total of 37 second s of fluoroscopic time was utilized during procedure and 73 images obtained. Total DAP = 900.64. FINDINGS: The esophagus shows adequate motility and emptying into the stomach on upright drinking. T here is some stasis with abnormal secondary and tertiary contractions on prone drinking. No evidence of fixed hiatal hernia or stricture noted. No intraluminal mass identified. No significant gastroesop hageal reflux was seen during real time performance of this study. IMPRESSION: No obstructing mass or stricture seen. If symptoms persist advise further investigation with direct visualization/endoscopy. [facility], , 07/12/2024 8:01 AM
== END | disposition home or self-care (01) ==
LOC: RADFLMAIN 14:33
PROVIDERS: ATTEND Family Medicine
DX: R13.19 Other dysphagia (principal)
CPT/HCPCS: 74220